=== PATIENT | male | born 1945 | race Caucasian/White ===

== ENCOUNTER → 2016-09-11 | Outpatient (RCR) | payer MEDICARE, OTHER ==
[2016-06-13 12:47] LABS: BASOPHILS % (AUTO) 1 % (0-10); EOSINOPHILS # (AUTO) 0.1 10^3/uL (0.0-0.3); EOSINOPHILS % (AUTO) 2 % (0-10); LYMPHOCYTES # (AUTO) 0.7 X 10^3 (1.0-4.0); LYMPHOCYTES % (AUTO) 23 % (12-44); MEAN CORPUSCULAR HEMOGLOBIN 31 PG (25-34); MEAN CORPUSCULAR HGB CONC 34 G/DL (32-36); MEAN CORPUSCULAR VOLUME 92 FL (80-99); MEAN PLATELET VOLUME 10.4 FL (7.4-10.4); MONOCYTES # (AUTO) 0.2 X 10^3 (0.0-1.0); MONOCYTES % (AUTO) 6 % (0-12); NEUTROPHILS # (AUTO) 2.3 X 10^3 (1.8-7.8); NEUTROPHILS % (AUTO) 69 % (42-75); PLATELET COUNT 187 10^3/uL (130-400); RED BLOOD COUNT 4.07 10^6/uL (4.35-5.85); RED CELL DISTRIBUTION WIDTH 12.8 % (10.0-14.5); WHITE BLOOD COUNT 3.3 10^3/uL (4.3-11.0)
[2016-06-13 13:08] LABS: ANION GAP 12 MMOL/L (5-14); BLOOD UREA NITROGEN 9 MG/DL (7-18); BUN/CREATININE RATIO 9; CALCIUM 9.1 MG/DL (8.5-10.1); CARBON DIOXIDE 21 MMOL/L (21-32); CHLORIDE 106 MMOL/L (98-107); CREATININE SERUM 0.97 MG/DL (0.60-1.30); GFR ESTIMATED > 60; GLUCOSE 107 MG/DL (70-105); POTASSIUM 3.8 MMOL/L (3.6-5.0); SODIUM 139 MMOL/L (135-145)
[2016-06-19 13:31] LABS: BASOPHILS % (AUTO) 1 % (0-10); EOSINOPHILS # (AUTO) 0.1 10^3/uL (0.0-0.3); EOSINOPHILS % (AUTO) 2 % (0-10); LYMPHOCYTES # (AUTO) 0.9 X 10^3 (1.0-4.0); LYMPHOCYTES % (AUTO) 20 % (12-44); MEAN CORPUSCULAR HEMOGLOBIN 31 PG (25-34); MEAN CORPUSCULAR HGB CONC 33 G/DL (32-36); MEAN CORPUSCULAR VOLUME 92 FL (80-99); MEAN PLATELET VOLUME 10.2 FL (7.4-10.4); MONOCYTES # (AUTO) 0.4 X 10^3 (0.0-1.0); MONOCYTES % (AUTO) 9 % (0-12); NEUTROPHILS % (AUTO) 68 % (42-75); PLATELET COUNT 181 10^3/uL (130-400); RED BLOOD COUNT 4.09 10^6/uL (4.35-5.85); RED CELL DISTRIBUTION WIDTH 13.4 % (10.0-14.5); WHITE BLOOD COUNT 4.3 10^3/uL (4.3-11.0)
[2016-06-19 13:57] LABS: ANION GAP 8 MMOL/L (5-14); BLOOD UREA NITROGEN 10 MG/DL (7-18); BUN/CREATININE RATIO 9; CALCIUM 8.9 MG/DL (8.5-10.1); CARBON DIOXIDE 26 MMOL/L (21-32); CHLORIDE 106 MMOL/L (98-107); CREATININE SERUM 1.07 MG/DL (0.60-1.30); GFR ESTIMATED > 60; GLUCOSE 113 MG/DL (70-105); POTASSIUM 3.7 MMOL/L (3.6-5.0); SODIUM 140 MMOL/L (135-145)
[2016-06-26 12:15] LABS: BASOPHILS % (AUTO) 1 % (0-10); EOSINOPHILS # (AUTO) 0.1 10^3/uL (0.0-0.3); EOSINOPHILS % (AUTO) 2 % (0-10); LYMPHOCYTES # (AUTO) 1.2 X 10^3 (1.0-4.0); LYMPHOCYTES % (AUTO) 31 % (12-44); MEAN CORPUSCULAR HEMOGLOBIN 30 PG (25-34); MEAN CORPUSCULAR HGB CONC 33 G/DL (32-36); MEAN CORPUSCULAR VOLUME 92 FL (80-99); MEAN PLATELET VOLUME 10.6 FL (7.4-10.4); MONOCYTES # (AUTO) 0.4 X 10^3 (0.0-1.0); MONOCYTES % (AUTO) 10 % (0-12); NEUTROPHILS # (AUTO) 2.2 X 10^3 (1.8-7.8); NEUTROPHILS % (AUTO) 57 % (42-75); PLATELET COUNT 180 10^3/uL (130-400); RED BLOOD COUNT 4.31 10^6/uL (4.35-5.85); RED CELL DISTRIBUTION WIDTH 13.2 % (10.0-14.5); WHITE BLOOD COUNT 3.8 10^3/uL (4.3-11.0)
[2016-06-26 12:28] LABS: CALCIUM 9.4 MG/DL (8.5-10.1); CREATININE SERUM 1.21 MG/DL (0.60-1.30)
[2016-07-03 13:33] LABS: BASOPHILS % (AUTO) 1 % (0-10); EOSINOPHILS # (AUTO) 0.1 10^3/uL (0.0-0.3); EOSINOPHILS % (AUTO) 2 % (0-10); LYMPHOCYTES # (AUTO) 1.1 X 10^3 (1.0-4.0); LYMPHOCYTES % (AUTO) 28 % (12-44); MEAN CORPUSCULAR HEMOGLOBIN 31 PG (25-34); MEAN CORPUSCULAR HGB CONC 34 G/DL (32-36); MEAN CORPUSCULAR VOLUME 91 FL (80-99); MEAN PLATELET VOLUME 10.4 FL (7.4-10.4); MONOCYTES # (AUTO) 0.3 X 10^3 (0.0-1.0); MONOCYTES % (AUTO) 8 % (0-12); NEUTROPHILS # (AUTO) 2.4 X 10^3 (1.8-7.8); NEUTROPHILS % (AUTO) 61 % (42-75); PLATELET COUNT 166 10^3/uL (130-400); RED BLOOD COUNT 4.18 10^6/uL (4.35-5.85); RED CELL DISTRIBUTION WIDTH 13.6 % (10.0-14.5); WHITE BLOOD COUNT 3.9 10^3/uL (4.3-11.0)
[2016-07-03 14:00] LABS: ALBUMIN 3.6 G/DL (3.2-4.5); BILIRUBIN,TOTAL 0.3 MG/DL (0.1-1.0); CALCIUM 8.6 MG/DL (8.5-10.1); CREATININE SERUM 1.22 MG/DL (0.60-1.30); MAGNESIUM 1.8 MG/DL (1.8-2.4); POTASSIUM 3.9 MMOL/L (3.6-5.0); TOTAL PROTEIN 5.9 G/DL (6.4-8.2)
[2016-07-11 10:39] LABS: RED BLOOD COUNT 4.45 10^6/uL (4.35-5.85); RED CELL DISTRIBUTION WIDTH 13.3 % (10.0-14.5); WHITE BLOOD COUNT 4.3 10^3/uL (4.3-11.0)
[2016-07-11 10:51] LABS: ALBUMIN 4.1 G/DL (3.2-4.5); BILIRUBIN,TOTAL 0.4 MG/DL (0.1-1.0); CALCIUM 9.3 MG/DL (8.5-10.1); CREATININE SERUM 1.36 MG/DL (0.60-1.30); POTASSIUM 4.2 MMOL/L (3.6-5.0); TOTAL PROTEIN 6.5 G/DL (6.4-8.2)
[2016-07-17 13:25] LABS: BASOPHILS % (AUTO) 1 % (0-10); EOSINOPHILS # (AUTO) 0.1 10^3/uL (0.0-0.3); EOSINOPHILS % (AUTO) 2 % (0-10); LYMPHOCYTES % (AUTO) 27 % (12-44); MEAN CORPUSCULAR HEMOGLOBIN 31 PG (25-34); MEAN CORPUSCULAR HGB CONC 34 G/DL (32-36); MEAN CORPUSCULAR VOLUME 90 FL (80-99); MEAN PLATELET VOLUME 9.8 FL (7.4-10.4); MONOCYTES # (AUTO) 0.4 X 10^3 (0.0-1.0); MONOCYTES % (AUTO) 10 % (0-12); NEUTROPHILS # (AUTO) 2.3 X 10^3 (1.8-7.8); NEUTROPHILS % (AUTO) 61 % (42-75); PLATELET COUNT 181 10^3/uL (130-400); RED BLOOD COUNT 4.34 10^6/uL (4.35-5.85); RED CELL DISTRIBUTION WIDTH 13.9 % (10.0-14.5); WHITE BLOOD COUNT 3.8 10^3/uL (4.3-11.0)
[2016-07-17 13:47] LABS: CALCIUM 9.3 MG/DL (8.5-10.1); CREATININE SERUM 1.31 MG/DL (0.60-1.30); POTASSIUM 3.5 MMOL/L (3.6-5.0)
[2016-07-24 13:39] LABS: BASOPHILS % (AUTO) 1 % (0-10); EOSINOPHILS # (AUTO) 0.1 10^3/uL (0.0-0.3); EOSINOPHILS % (AUTO) 2 % (0-10); LYMPHOCYTES # (AUTO) 1.1 X 10^3 (1.0-4.0); LYMPHOCYTES % (AUTO) 20 % (12-44); MEAN CORPUSCULAR HEMOGLOBIN 31 PG (25-34); MEAN CORPUSCULAR HGB CONC 34 G/DL (32-36); MEAN CORPUSCULAR VOLUME 90 FL (80-99); MEAN PLATELET VOLUME 9.6 FL (7.4-10.4); MONOCYTES # (AUTO) 0.4 X 10^3 (0.0-1.0); MONOCYTES % (AUTO) 8 % (0-12); NEUTROPHILS # (AUTO) 3.7 X 10^3 (1.8-7.8); NEUTROPHILS % (AUTO) 70 % (42-75); PLATELET COUNT 201 10^3/uL (130-400); RED CELL DISTRIBUTION WIDTH 13.9 % (10.0-14.5); WHITE BLOOD COUNT 5.3 10^3/uL (4.3-11.0)
[2016-07-24 14:20] LABS: CALCIUM 9.1 MG/DL (8.5-10.1); CREATININE SERUM 1.26 MG/DL (0.60-1.30); POTASSIUM 4.1 MMOL/L (3.6-5.0)
[2016-07-30 11:11] LABS: BASOPHILS % (AUTO) 1 % (0-10); EOSINOPHILS # (AUTO) 0.1 10^3/uL (0.0-0.3); EOSINOPHILS % (AUTO) 2 % (0-10); LYMPHOCYTES # (AUTO) 1.4 X 10^3 (1.0-4.0); LYMPHOCYTES % (AUTO) 25 % (12-44); MEAN CORPUSCULAR HEMOGLOBIN 31 PG (25-34); MEAN CORPUSCULAR HGB CONC 34 G/DL (32-36); MEAN CORPUSCULAR VOLUME 90 FL (80-99); MEAN PLATELET VOLUME 9.7 FL (7.4-10.4); MONOCYTES # (AUTO) 0.5 X 10^3 (0.0-1.0); MONOCYTES % (AUTO) 8 % (0-12); NEUTROPHILS # (AUTO) 3.8 X 10^3 (1.8-7.8); NEUTROPHILS % (AUTO) 65 % (42-75); PLATELET COUNT 210 10^3/uL (130-400); RED BLOOD COUNT 4.53 10^6/uL (4.35-5.85); RED CELL DISTRIBUTION WIDTH 13.9 % (10.0-14.5); WHITE BLOOD COUNT 5.8 10^3/uL (4.3-11.0)
[2016-07-30 11:38] LABS: ALBUMIN 3.9 G/DL (3.2-4.5); BILIRUBIN,TOTAL 0.3 MG/DL (0.1-1.0); CALCIUM 9.4 MG/DL (8.5-10.1); CREATININE SERUM 1.24 MG/DL (0.60-1.30); MAGNESIUM 1.9 MG/DL (1.8-2.4); POTASSIUM 4.2 MMOL/L (3.6-5.0); TOTAL PROTEIN 6.3 G/DL (6.4-8.2)
[2016-07-30 12:02] LABS: THYROID STIMULATING HORMONE 1.98 UIU/ML (0.35-4.94)
[2016-08-06 09:21] LABS: BASOPHILS % (AUTO) 1 % (0-10); EOSINOPHILS # (AUTO) 0.1 10^3/uL (0.0-0.3); EOSINOPHILS % (AUTO) 2 % (0-10); LYMPHOCYTES # (AUTO) 1.3 X 10^3 (1.0-4.0); LYMPHOCYTES % (AUTO) 33 % (12-44); MEAN CORPUSCULAR HEMOGLOBIN 31 PG (25-34); MEAN CORPUSCULAR HGB CONC 34 G/DL (32-36); MEAN CORPUSCULAR VOLUME 90 FL (80-99); MEAN PLATELET VOLUME 10.4 FL (7.4-10.4); MONOCYTES # (AUTO) 0.4 X 10^3 (0.0-1.0); MONOCYTES % (AUTO) 10 % (0-12); NEUTROPHILS # (AUTO) 2.2 X 10^3 (1.8-7.8); NEUTROPHILS % (AUTO) 54 % (42-75); PLATELET COUNT 189 10^3/uL (130-400); RED BLOOD COUNT 4.35 10^6/uL (4.35-5.85); RED CELL DISTRIBUTION WIDTH 13.7 % (10.0-14.5)
[2016-08-06 09:44] LABS: ANION GAP 9 MMOL/L (5-14); BLOOD UREA NITROGEN 13 MG/DL (7-18); BUN/CREATININE RATIO 11; CALCIUM 9.1 MG/DL (8.5-10.1); CARBON DIOXIDE 24 MMOL/L (21-32); CHLORIDE 105 MMOL/L (98-107); CREATININE SERUM 1.15 MG/DL (0.60-1.30); GFR ESTIMATED > 60; GLUCOSE 96 MG/DL (70-105); POTASSIUM 3.7 MMOL/L (3.6-5.0); SODIUM 138 MMOL/L (135-145)
[2016-08-14 14:49] LABS: BASOPHILS % (AUTO) 1 % (0-10); EOSINOPHILS # (AUTO) 0.1 10^3/uL (0.0-0.3); EOSINOPHILS % (AUTO) 3 % (0-10); LYMPHOCYTES # (AUTO) 1.2 X 10^3 (1.0-4.0); LYMPHOCYTES % (AUTO) 28 % (12-44); MEAN CORPUSCULAR HEMOGLOBIN 31 PG (25-34); MEAN CORPUSCULAR HGB CONC 34 G/DL (32-36); MEAN CORPUSCULAR VOLUME 91 FL (80-99); MEAN PLATELET VOLUME 10.1 FL (7.4-10.4); MONOCYTES # (AUTO) 0.5 X 10^3 (0.0-1.0); MONOCYTES % (AUTO) 11 % (0-12); NEUTROPHILS # (AUTO) 2.4 X 10^3 (1.8-7.8); NEUTROPHILS % (AUTO) 57 % (42-75); PLATELET COUNT 201 10^3/uL (130-400); RED CELL DISTRIBUTION WIDTH 13.7 % (10.0-14.5); WHITE BLOOD COUNT 4.2 10^3/uL (4.3-11.0)
[2016-08-14 15:14] LABS: CALCIUM 9.2 MG/DL (8.5-10.1); CREATININE SERUM 1.21 MG/DL (0.60-1.30); POTASSIUM 4.2 MMOL/L (3.6-5.0)
[2016-08-21 10:08] LABS: BASOPHILS % (AUTO) 1 % (0-10); EOSINOPHILS # (AUTO) 0.2 10^3/uL (0.0-0.3); EOSINOPHILS % (AUTO) 3 % (0-10); LYMPHOCYTES # (AUTO) 1.2 X 10^3 (1.0-4.0); LYMPHOCYTES % (AUTO) 21 % (12-44); MEAN CORPUSCULAR HEMOGLOBIN 31 PG (25-34); MEAN CORPUSCULAR HGB CONC 35 G/DL (32-36); MEAN CORPUSCULAR VOLUME 91 FL (80-99); MEAN PLATELET VOLUME 10.1 FL (7.4-10.4); MONOCYTES # (AUTO) 0.5 X 10^3 (0.0-1.0); MONOCYTES % (AUTO) 9 % (0-12); NEUTROPHILS # (AUTO) 3.9 X 10^3 (1.8-7.8); NEUTROPHILS % (AUTO) 67 % (42-75); PLATELET COUNT 185 10^3/uL (130-400); RED BLOOD COUNT 4.14 10^6/uL (4.35-5.85); RED CELL DISTRIBUTION WIDTH 13.5 % (10.0-14.5); WHITE BLOOD COUNT 5.9 10^3/uL (4.3-11.0)
[2016-08-21 10:32] LABS: ANION GAP 7 MMOL/L (5-14); BLOOD UREA NITROGEN 15 MG/DL (7-18); BUN/CREATININE RATIO 13; CALCIUM 8.9 MG/DL (8.5-10.1); CARBON DIOXIDE 25 MMOL/L (21-32); CHLORIDE 106 MMOL/L (98-107); CREATININE SERUM 1.18 MG/DL (0.60-1.30); GFR ESTIMATED > 60; GLUCOSE 103 MG/DL (70-105); POTASSIUM 3.9 MMOL/L (3.6-5.0); SODIUM 138 MMOL/L (135-145)
[2016-08-28 13:05] LABS: BASOPHILS % (AUTO) 1 % (0-10); EOSINOPHILS # (AUTO) 0.2 10^3/uL (0.0-0.3); EOSINOPHILS % (AUTO) 5 % (0-10); LYMPHOCYTES # (AUTO) 1.3 X 10^3 (1.0-4.0); LYMPHOCYTES % (AUTO) 26 % (12-44); MEAN CORPUSCULAR HEMOGLOBIN 31 PG (25-34); MEAN CORPUSCULAR HGB CONC 34 G/DL (32-36); MEAN CORPUSCULAR VOLUME 92 FL (80-99); MEAN PLATELET VOLUME 10.1 FL (7.4-10.4); MONOCYTES # (AUTO) 0.5 X 10^3 (0.0-1.0); MONOCYTES % (AUTO) 9 % (0-12); NEUTROPHILS # (AUTO) 2.9 X 10^3 (1.8-7.8); NEUTROPHILS % (AUTO) 60 % (42-75); PLATELET COUNT 192 10^3/uL (130-400); RED BLOOD COUNT 4.51 10^6/uL (4.35-5.85); RED CELL DISTRIBUTION WIDTH 13.1 % (10.0-14.5); WHITE BLOOD COUNT 4.9 10^3/uL (4.3-11.0)
[2016-08-28 13:33] LABS: CALCIUM 9.2 MG/DL (8.5-10.1); CREATININE SERUM 1.32 MG/DL (0.60-1.30); POTASSIUM 3.9 MMOL/L (3.6-5.0)
[2016-09-03 10:42] LABS: BASOPHILS % (AUTO) 0 % (0-10); EOSINOPHILS # (AUTO) 0.2 10^3/uL (0.0-0.3); EOSINOPHILS % (AUTO) 4 % (0-10); LYMPHOCYTES # (AUTO) 1.1 X 10^3 (1.0-4.0); LYMPHOCYTES % (AUTO) 24 % (12-44); MEAN CORPUSCULAR HEMOGLOBIN 31 PG (25-34); MEAN CORPUSCULAR HGB CONC 34 G/DL (32-36); MEAN CORPUSCULAR VOLUME 92 FL (80-99); MEAN PLATELET VOLUME 9.9 FL (7.4-10.4); MONOCYTES # (AUTO) 0.3 X 10^3 (0.0-1.0); MONOCYTES % (AUTO) 7 % (0-12); NEUTROPHILS % (AUTO) 65 % (42-75); PLATELET COUNT 208 10^3/uL (130-400); RED CELL DISTRIBUTION WIDTH 13.3 % (10.0-14.5); WHITE BLOOD COUNT 4.6 10^3/uL (4.3-11.0)
[2016-09-03 11:11] LABS: ALANINE AMINOTRANSFERASE 12 U/L (0-55); ALBUMIN 3.7 G/DL (3.2-4.5); ANION GAP 9 MMOL/L (5-14); ASPARTATE AMINO TRANSFERASE 15 U/L (5-34); BILIRUBIN,TOTAL 0.6 MG/DL (0.1-1.0); BLOOD UREA NITROGEN 8 MG/DL (7-18); BUN/CREATININE RATIO 7; CALCIUM 9.1 MG/DL (8.5-10.1); CARBON DIOXIDE 24 MMOL/L (21-32); CHLORIDE 105 MMOL/L (98-107); CREATININE SERUM 1.19 MG/DL (0.60-1.30); GFR ESTIMATED > 60; GLUCOSE 118 MG/DL (70-105); MAGNESIUM 1.5 MG/DL (1.8-2.4); POTASSIUM 3.4 MMOL/L (3.6-5.0); SODIUM 138 MMOL/L (135-145)
[~2016-09-11] VITALS: Ht 177.8 cm; Wt 87.5 kg
[~2016-09-11] MED LIST: ACETAMINOPHEN 500 MG TAB (TYLENOL) CANCER CTR PO PRN; ALBU0.8322 IH; ASCO500T6 PO; ASPI-9 PO; CEFD300C3 PO; CHOL20002 PO; CLON0.5T3 PO; CYAN10006 PO; DULO60CA6 PO; FLDR.1T PO; FLUC100T6 PO; FOLI1TAB24 PO; FURO20TA4 PO; GUAI400T71 PO; HYDR-3454 PO; HYDR1TAB8 PO; IBUP-30 PO; IPRA3AMP INH; LEVO500T2 PO; LEVO500T69 PO; LEVO750T39 PO; MAGN250T PO; MELO15TA39 PO; METO10TA3 PO; MORP-34 PO; NCT14P TD; NIVOLUMAB 200 MG, NIVOLUMAB 40 MG in NS (IVPB) CANCER CENTER 50 ML IV SCH; NIVOLUMAB IV SCH; NS IV 500 ML (CANCER CENTER) IV SCH; NS IV SCH; OMEP40CA36 PO; ONDA8TAB12 PO; OXYB5TAB9 PO; OXYC-190 PO; OXYC-464 PO; OXYC10TA7 PO; OXYC20TA4 PO; OXYC20TA54 PO; POTA20TA8 PO; PYRI200T5 PO; VITA400C60 PO; VITA80006 PO; ZOLM5TAB8 PO; ZOLP10TA5 PO; diphenhydrAMINE 25 MG TAB (BENADRYL) CANCER CENTER PO SCH
[2016-09-11 15:42] LABS: BASOPHILS % (AUTO) 1 % (0-10); EOSINOPHILS # (AUTO) 0.3 10^3/uL (0.0-0.3); EOSINOPHILS % (AUTO) 6 % (0-10); LYMPHOCYTES # (AUTO) 1.3 X 10^3 (1.0-4.0); LYMPHOCYTES % (AUTO) 28 % (12-44); MEAN CORPUSCULAR HGB CONC 34 G/DL (32-36); MEAN CORPUSCULAR VOLUME 93 FL (80-99); MEAN PLATELET VOLUME 10.2 FL (7.4-10.4); MONOCYTES # (AUTO) 0.4 X 10^3 (0.0-1.0); MONOCYTES % (AUTO) 9 % (0-12); NEUTROPHILS # (AUTO) 2.6 X 10^3 (1.8-7.8); NEUTROPHILS % (AUTO) 57 % (42-75); PLATELET COUNT 204 10^3/uL (130-400); RED BLOOD COUNT 4.26 10^6/uL (4.35-5.85); RED CELL DISTRIBUTION WIDTH 13.2 % (10.0-14.5); WHITE BLOOD COUNT 4.5 10^3/uL (4.3-11.0)
[2016-09-11 15:43] LABS: MEAN CORPUSCULAR HEMOGLOBIN 31 PG (25-34)
[2016-09-11 16:13] LABS: CALCIUM 9.2 MG/DL (8.5-10.1); CREATININE SERUM 1.2 MG/DL (0.60-1.30)
== END | disposition home or self-care (01) ==
LOC: ONC 06-13 12:27
PROVIDERS: ATTEND Internal Medicine Hematology & Oncology
DX: Z51.11 Encounter for antineoplastic chemotherapy (principal); C34.32 Malignant neoplasm of lower lobe, left bronchus or lung; J91.0 Malignant pleural effusion; Z85.46 Personal history of malignant neoplasm of prostate; K59.00 Constipation, unspecified; F17.210 Nicotine dependence, cigarettes, uncomplicated; M48.06 Spinal stenosis, lumbar region; M19.90 Unspecified osteoarthritis, unspecified site; E83.42 Hypomagnesemia; Z79.899 Other long term (current) drug therapy
CPT/HCPCS: 36415; 36591; 80048; 80053; 83735; 84153; 84439; 84443; 85025; 85027; 96413; 99213

== ENCOUNTER → 2016-10-23 | Outpatient (CLI) | payer MEDICARE ==
[~2016-10-23] MED LIST changes: -ACETAMINOPHEN 500 MG TAB (TYLENOL) CANCER CTR PO PRN; +BARIUM SUSPENSION 2.1% (VANILLA SILQ) 450 ML PO ONE; +CATHETER FLUSH 10 ML SYR IV PRN; +IOHEXOL 350 MG/ML 100 ML (OMNIPAQUE 350) VIAL IV ONE; -NIVOLUMAB 200 MG, NIVOLUMAB 40 MG in NS (IVPB) CANCER CENTER 50 ML IV SCH; -NIVOLUMAB IV SCH; +NS 100 ML (IVPB) BAG IV ONE; -NS IV 500 ML (CANCER CENTER) IV SCH; -NS IV SCH; -diphenhydrAMINE 25 MG TAB (BENADRYL) CANCER CENTER PO SCH
--- OUTSIDE RECORDS SUMMARY | 2016-10-23 08:58 | XMS REPORT | Continuity of Care Document ---
Demographics Preferred Language Unknown Marital Status Unknown Christianity Affiliation Unknown Race Unknown Ethnic Group Unknown Author Author [facility] Address Unknown Phone Unavailable Allergies Active Description Code Type Severity Reaction Onset Reported/Identified Relationship to Patient Clinical Status Yes ENVIRONMENTAL ENVIRONMENTAL Mild N/A 03/02/2012 Yes No Known Drug Allergies [id number] Drug Allergy Unknown N/ A 04/09/2016 Medications Problems Date Dx Coded Attending Type Code Diagnosis Diagnosed By 08/06/1056 NORBERT GIBBS, RABIA Cai Ot 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 OF LOWER LOBE, LEFT B 08/06/1056 NORBERT GIBBS, RABIA Cai Ot F17.210 NICOTINE DEPENDENCE, CIGARETTES, UNCOMPL 08/06/1056 NORBERT GIBBS, RABIA Cai Ot G89.4 CHRONIC PAIN SYNDROME 08/06/1056 NORBERT GIBBS, RABIA Cai Ot 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 08/06/1056 NORBERT GIBBS, RABIA Cai Ot K59.00 CONSTIPATION, UNSPECIFIED 08/06/1056 NORBERT GIBBS, RABIA Cai Ot M19.90 UNSPECIFIED OSTEOARTHRITIS, UNSPECIFIED 08/06/1056 NORBERT GIBBS, RABIA Cai Ot M48.06 SPINAL STENOSIS, LUMBAR REGION 08/06/1056 NORBERT GIBBS, RABIA Cai Ot R42 DIZZINESS AND GIDDINESS 08/06/1056 NORBERT GIBBS, RABIA Cai Ot Z51.11 ENCOUNTER FOR ANTINEOPLASTIC CHEMOTHERAP 08/06/1056 NORBERT GIBBS, RABIA Cai Ot 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 08/06/1056 NORBERT GIBBS, RABIA Cai Ot Z85.46 PERSONAL HISTORY OF MALIGNANT NEOPLASM O 11/27/2011 296.32 MO DEPRESSIVE RECURRENT MODERATE 11/27/2011 296.32 MO DEPRESSIVE RECURRENT MODERATE 03/04/2012 Ot 275.2 DIS MAGNESIUM METABOLISM 03/04/2012 Ot 300.00 ANXIETY STATE NOS 03/04/2012 Ot 305.1 TOBACCO USE DISORDER 03/04/2012 Ot 311 DEPRESSIVE DISORDER NEC 03/04/2012 Ot 486 PNEUMONIA, ORGANISM NOS 03/04/2012 Ot 496 CHR AIRWAY OBSTRUCT NEC 03/04/2012 Ot 722.52 LUMB/LUMBOSAC DISC DEGEN 03/04/2012 Ot E000.8 OTHER EXTERNAL CAUSE STATUS 03/04/2012 Ot E849.0 ACCIDENT IN HOME 03/04/2012 Ot E888.9 FALL NOS 01/05/2015 LINDSEY COE MD Ot 338.4 CHRONIC PAIN SYNDROME 01/05/2015 LINDSEY COE MD Ot 721.3 LUMBOSACRAL SPONDYLOSIS 01/05/2015 LINDSEY COE MD Ot 722.52 LUMB/LUMBOSAC DISC DEGEN 01/05/2015 LINDSEY COE MD Ot V58.69 OTH MED,LT,CURRENT USE 01/09/2015 LINDSEY COE MD Ot 722.83 01/09/2015 LINDSEY COE MD Ot 724.02 02/02/2015 LINDSEY COE MD Ot 722.52 LUMB/LUMBOSAC DISC DEGEN 05/22/2015 GAYLE GIBBS, ALLEN Rojas Ot 959.01 05/22/2015 ALLEN ARAUJO MD Ot E000.8 05/22/2015 ALLEN ARAUJO MD Ot E888.9 06/06/2015 ALLEN ARAUJO MD Ot 959.01 06/06/2015 ALLEN ARAUJO MD Ot E000.8 06/06/2015 ALLEN ARAUJO MD Ot E888.9 06/13/2015 ALLEN ARAUJO MD Ot 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 OF LOWER LOBE, LEFT B 06/13/2015 GAYLE GIBBS, ALLEN Rojas Ot F17.200 NICOTINE DEPENDENCE, UNSPECIFIED, UNCOMP 06/13/2015 ALLEN ARAUJO MD Ot F41.9 ANXIETY DISORDER, UNSPECIFIED 06/13/2015 ALLEN ARAUJO MD Ot G43.909 MIGRAINE, UNSP, NOT INTRACTABLE, WITHOUT 06/13/2015 ALLEN ARAUJO MD Ot G89.4 CHRONIC PAIN SYNDROME 06/13/2015 ALLEN ARAUJO MD Ot 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 06/13/2015 ALLEN ARAUJO MD Ot K59.00 CONSTIPATION, UNSPECIFIED 06/13/2015 ALLEN ARAUJO MD Ot M19.90 UNSPECIFIED OSTEOARTHRITIS, UNSPECIFIED 06/13/2015 ALLEN ARAUJO MD Ot M54.2 CERVICALGIA 06/13/2015 ALLEN ARAUJO MD Ot R91.8 06/15/2015 Ot 185 06/15/2015 Ot 305.1 06/15/2015 Ot 716.99 06/15/2015 Ot V58.69 06/15/2015 Ot 185 06/15/2015 Ot 724.02 06/15/2015 Ot V45.4 06/15/2015 Ot 185 06/15/2015 Ot 724.02 06/15/2015 Ot V45.4 06/15/2015 Ot 331.9 06/15/2015 Ot 781.3 06/15/2015 Ot 724.5 06/15/2015 Ot 780.2 06/15/2015 Ot 397.0 06/15/2015 Ot 424.0 06/15/2015 Ot 724.5 06/15/2015 Ot 780.2 06/15/2015 GAYLE GIBBS, ALLEN Rojas Ot 723.1 06/15/2015 ALLEN ARAUJO MD Ot V45.89 06/15/2015 LUCAS RAHMAN [employer] Ot 305.1 06/15/2015 LUCAS RAHMAN [employer] Ot 564.00 06/15/2015 LUCAS RAHMAN [employer]AL Ot 786.2 06/15/2015 LUCAS RAHMAN [employer]AL Ot 787.02 06/15/2015 SARAVANAN GIBBS, LINDSEY Castrejon Ot 722.83 06/15/2015 LINDSEY COE MD Ot 724.02 06/15/2015 GAYLE GIBBS, ALLEN Rojas Ot 959.01 06/15/2015 GAYLE GIBBS, ALLEN Rojas Ot E000.8 06/15/2015 GAYLE GIBBS, ALLEN Rojas Ot E888.9 06/27/2015 NORBERT GIBBS, RABIA Cai Ot R91.8 OTHER NONSPECIFIC ABNORMAL FINDING OF TAMAR 07/09/2015 BRAYAN SIERRA MD Ot C34.90 MALIGNANT NEOPLASM OF UNSP PART OF UNSP 07/09/2015 BRAYAN SIERRA MD Ot K57.30 DVRTCLOS OF LG INT W/O PERFORATION OR AB 07/09/2015 BRAYAN SIERRA MD Ot K63.5 POLYP OF COLON 07/10/2015 EDILBERTO MOULTON CORE MAKER Ot J90 07/10/2015 EDILBERTO MOULTON APRN Ot K59.00 07/11/2015 BRAYAN SIERRA MD Ot Z01.818 07/11/2015 BRAYAN SIERRA MD Ot C34.90 MALIGNANT NEOPLASM OF UNSP PART OF UNSP 07/11/2015 MARIELA GIBBS, BRAYAN Heredia Ot Z11.2 ENCOUNTER FOR SCREENING FOR OTHER BACTER 07/23/2015 Ot 185 07/23/2015 Ot 305.1 07/23/2015 Ot 716.99 07/23/2015 Ot V58.69 07/23/2015 Ot 185 07/23/2015 Ot 724.02 07/23/2015 Ot V45.4 07/23/2015 Ot 185 07/23/2015 Ot 724.02 07/23/2015 Ot V45.4 07/23/2015 Ot 331.9 07/23/2015 Ot 781.3 07/23/2015 Ot 724.5 07/23/2015 Ot 780.2 07/23/2015 Ot 397.0 07/23/2015 Ot 424.0 07/23/2015 Ot 724.5 07/23/2015 Ot 780.2 07/23/2015 GAYLE GIBBS, ALLEN Rojas Ot 723.1 07/23/2015 GAYLE GIBBS, ALLEN Rojas Ot V45.89 07/23/2015 LUCAS RAHMAN [facility] Ot 305.1 07/23/2015 LUCAS RAHMAN [employer] Ot 564.00 07/23/2015 LUCAS RAHMAN [employer] Ot 786.2 07/23/2015 LUCAS RAHMAN [employer] Ot 787.02 07/23/2015 SARAVANAN GIBBS, LINDSEY Castrejon Ot 722.83 07/23/2015 SARAVANAN GIBBS, LINDSEY Castrejon Ot 724.02 07/23/2015 GAYLE GIBBS, ALLEN Rojas Ot 959.01 07/23/2015 GAYLE GIBBS, ALLEN Rojas Ot E000.8 07/23/2015 ALLEN ARAUJO MD Ot E888.9 07/23/2015 NORBERT GIBBS, RABIA Cai Ot F17.210 07/23/2015 NORBERT GIBBS, RABIA Cai Ot J91.0 07/23/2015 NORBERT GIBBS, RABIA Cai Ot K59.00 07/23/2015 NORBERT GIBBS, RABIA Cai Ot M19.90 07/23/2015 NORBERT GIBBS, RABIA Cai Ot M48.06 07/23/2015 NORBERT GIBBS, RABIA Cai Ot R91.8 07/23/2015 NORBERT GIBBS, RABIA Cai Ot Z79.899 07/23/2015 NORBERT IGBBS, RABIA Cai Ot Z85.46 07/23/2015 EDILBERTO MOULTON CORE MAKER Ot J90 07/23/2015 EDILBERTO MOULTON CORE MAKER Ot K59.00 07/23/2015 MARIELA GIBBS, BRAYAN Heredia Ot K59.00 07/23/2015 MARIELA GIBBS, BRAYAN Heredia Ot Z01.818 07/23/2015 MARIELA GIBBS, BRAYAN Heredia Ot Z01.818 07/23/2015 Ot 724.5 07/23/2015 Ot 780.2 07/23/2015 Ot 397.0 07/23/2015 Ot 424.0 07/23/2015 Ot 724.5 07/23/2015 Ot 780.2 07/23/2015 Ot 185 07/23/2015 Ot 305.1 07/23/2015 Ot 716.99 07/23/2015 Ot V58.69 07/23/2015 Ot 185 07/23/2015 Ot 724.02 07/23/2015 Ot V45.4 07/23/2015 Ot 185 07/23/2015 Ot 724.02 07/23/2015 Ot V45.4 07/23/2015 Ot 331.9 07/23/2015 Ot 781.3 07/23/2015 Ot 724.5 07/23/2015 Ot 780.2 07/23/2015 Ot 397.0 07/23/2015 Ot 424.0 07/23/2015 Ot 724.5 07/23/2015 Ot 780.2 07/23/2015 GAYLE GIBBS, ALLEN Rojas Ot 723.1 07/23/2015 GAYLE GIBBS, ALLEN Rojas Ot V45.89 07/23/2015 LUCAS RAHMAN [employer] Ot 305.1 07/23/2015 LUCAS RAHMAN [employer]AL Ot 564.00 07/23/2015 LUCAS RAHMAN [employer] Ot 786.2 07/23/2015 LUCAS RAHMAN [employer] Ot 787.02 07/23/2015 SARAVANAN GIBBS, LINDSEY Castrejon Ot 722.83 07/23/2015 LINDSEY COE MD Ot 724.02 07/23/2015 GAYLE GIBBS, ALLEN Rojas Ot 959.01 07/23/2015 GAYLE GIBBS, ALLEN Rojas Ot E000.8 07/23/2015 ALLEN ARAUJO MD Ot E888.9 07/23/2015 NORBERT GIBBS, RABIA K Ot F17.210 07/23/2015 NORBERT GIBBS, RABIA K Ot J91.0 07/23/2015 NORBERT GIBBS, RABIA K Ot K59.00 07/23/2015 NORBERT GIBBS, RABIA K Ot M19.90 07/23/2015 NORBERT GIBBS, RABIA K Ot M48.06 07/23/2015 NORBERT GIBBS, RABIA K Ot R91.8 07/23/2015 NORBERT GIBBS, RABIA K Ot Z79.899 07/23/2015 NORBERT GIBBS, RABIA K Ot Z85.46 07/23/2015 EDILBERTO MOULTON CORE MAKER Ot J90 07/23/2015 EDILBERTO MOULTON CORE MAKER Ot K59.00 07/23/2015 MARIELA GIBBS, BRAYAN M Ot K59.00 07/23/2015 MARIELA GIBBS, BRAYAN M Ot Z01.818 07/23/2015 MARIELA GIBBS, BRAYAN M Ot Z01.818 07/23/2015 NORBERT GIBBS, RABIA K Ot F17.210 07/23/2015 NORBERT GIBBS, RABIA K Ot J91.0 07/23/2015 NORBERT GIBBS, RABIA K Ot K59.00 07/23/2015 NORBERT GIBBS, RABIA Cai Ot M19.90 07/23/2015 NORBERT GIBBS, RABIA Cai Ot M48.06 07/23/2015 NORBERT GIBBS, RABIA K Ot R91.8 07/23/2015 NORBERT GIBBS, RABIA K Ot Z79.899 07/23/2015 NORBERT GIBBS, RABIA K Ot Z85.46 07/23/2015 EDILBERTO MOULTON CORE MAKER Ot J90 07/23/2015 EDILBERTO MOULTON CORE MAKER Ot K59.00 07/23/2015 GAYLE GIBBS, ALLEN A Ot 959.01 07/23/2015 GAYLE GIBBS, ALLEN A Ot E000.8 07/23/2015 GAYLE GIBBS, ALLEN A Ot E888.9 07/23/2015 GAYLE GIBBS, ALLEN A Ot 723.1 07/23/2015 GAYLE GIBBS, ALLEN A Ot V45.89 07/31/2015 GAYLE GIBBS, ALLEN A Ot 723.1 07/31/2015 GAYLE GIBBS, ALLEN A Ot V45.89 07/31/2015 GAYLE GIBBS, ALLEN A Ot 959.01 07/31/2015 GAYLE GIBBS, ALLEN Rojas Ot E000.8 07/31/2015 GAYLE GIBBS, ALLEN Rojas Ot E888.9 07/31/2015 EDILBERTO MOULTON CORE MAKER Ot J90 07/31/2015 EDILBERTO MOULTON CORE MAKER Ot K59.00 08/08/2015 NORBERT GIBBS, RABIA Cai Ot F17.210 08/08/2015 NORBERT GIBBS, RABIA Cai Ot J91.0 08/08/2015 NORBERT GIBBS, RABIA Cai Ot K59.00 08/08/2015 NORBERT GIBBS, RABIA Cai Ot M19.90 08/08/2015 NORBERT GIBBS, RABIA Cai Ot M48.06 08/08/2015 NORBERT GIBBS, RABIA Cai Ot R91.8 08/08/2015 NORBERT GIBBS, RABIA Cai Ot Z79.899 08/08/2015 NORBERT GIBBS, RABIA Cai Ot Z85.46 08/17/2015 NORBERT GIBBS, RABIA Cai Ot F17.210 08/17/2015 NORBERT GIBBS, RABIA Cai Ot J91.0 08/17/2015 NORBERT GIBBS, RABIA Cai Ot K59.00 08/17/2015 NORBERT GIBBS, RABIA Cai Ot M19.90 08/17/2015 NORBERT GIBBS, RABIA Cai Ot M48.06 08/17/2015 NORBERT GIBBS, RABIA Cai Ot R91.8 08/17/2015 NORBERT GIBBS, RABIA Cai Ot Z79.899 08/17/2015 NORBERT GIBBS, RABIA Cai Ot Z85.46 09/13/2015 Ot 185 09/13/2015 Ot 305.1 09/13/2015 Ot 716.99 09/13/2015 Ot V58.69 09/13/2015 Ot 185 09/13/2015 Ot 724.02 09/13/2015 Ot V45.4 09/13/2015 Ot 185 09/13/2015 Ot 724.02 09/13/2015 Ot V45.4 09/13/2015 Ot 331.9 09/13/2015 Ot 781.3 09/13/2015 Ot 724.5 09/13/2015 Ot 780.2 09/13/2015 Ot 397.0 09/13/2015 Ot 424.0 09/13/2015 Ot 724.5 09/13/2015 Ot 780.2 09/13/2015 GAYLE GIBBS, ALLEN Rojas Ot 723.1 09/13/2015 GAYLE GIBBS, ALLEN Rojas Ot V45.89 09/13/2015 LUCAS RAHMAN [employer]RIAL Ot 305.1 09/13/2015 LUCAS RAHMAN LIGHT IND[employer]RIAL Ot 564.00 09/13/2015 LUCAS RAHMAN LIGHT INDUSTRIAL Ot 786.2 09/13/2015 LUCAS RAHMAN LIGHT IND[employer]RIAL Ot 787.02 09/13/2015 SARAVANAN GIBBS, LINDSEY Castrejon Ot 722.83 09/13/2015 SARAVANAN GIBBS, LINDSEY Castrejon Ot 724.02 09/13/2015 GAYLE GIBBS, ALLEN A Ot 959.01 09/13/2015 GAYLE GIBBS, ALLEN A Ot E000.8 09/13/2015 GAYLE GIBBS, ALLEN A Ot E888.9 09/13/2015 NORBERT GIBBS, RABIA Cai Ot F17.210 09/13/2015 NORBERT GIBBS, RABIA Cai Ot J91.0 09/13/2015 NORBERT GIBBS, RABIA Cai Ot K59.00 09/13/2015 NORBERT GIBBS, RABIA Cai Ot M19.90 09/13/2015 NORBERT GIBBS, RABIA Cai Ot M48.06 09/13/2015 NORBERT GIBBS, RABIA Cai Ot R91.8 09/13/2015 NORBERT GIBBS, RABIA Cai Ot Z79.899 09/13/2015 NORBERT GIBBS, RABIA Cai Ot Z85.46 09/13/2015 EDILBERTO MOULTON CORE MAKER Ot J90 09/13/2015 EDILBERTO MOULTON APRN Ot K59.00 09/13/2015 MARIELA GIBBS, BRAYAN Heredia Ot K59.00 09/13/2015 MARIELA GIBBS, BRAYAN Heredia Ot Z01.818 09/13/2015 MARIELA GIBBS, BRAYAN M Ot Z01.818 09/13/2015 CORBIN GIBBS, RADHA Ot F17.210 09/13/2015 CORBIN GIBBS, RADHA Ot Z08 09/13/2015 CORBIN GIBBS, RADHA Ot Z79.899 09/13/2015 CORBIN GIBBS, LAYNE-JUAN Ot Z85.46 09/19/2015 NORBERT GIBBS, RABIA Cai Ot 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 OF LOWER LOBE, LEFT B 09/19/2015 NORBERT GIBBS, RABIA Cai Ot F17.210 NICOTINE DEPENDENCE, CIGARETTES, UNCOMPL 09/19/2015 NORBERT GIBBS, RABIA Cai Ot 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 09/19/2015 NORBERT GIBBS, RABIA Cai Ot K59.00 CONSTIPATION, UNSPECIFIED 09/19/2015 NORBERT GIBBS, RABIA Cai Ot M19.90 UNSPECIFIED OSTEOARTHRITIS, UNSPECIFIED 09/19/2015 NORBERT GIBBS, RABIA Cai Ot M48.06 SPINAL STENOSIS, LUMBAR REGION 09/19/2015 NORBERT GIBBS, RABIA Cai Ot R91.8 OTHER NONSPECIFIC ABNORMAL FINDING OF TAMAR 09/19/2015 NORBERT GIBBS, RABIA Cai Ot Z51.11 ENCOUNTER FOR ANTINEOPLASTIC CHEMOTHERAP 09/19/2015 NORBERT GIBBS, RABIA Cai Ot 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 09/19/2015 NORBERT GIBBS, RABIA Cai Ot Z85.46 PERSONAL HISTORY OF MALIGNANT NEOPLASM O 09/19/2015 NORBERT GIBBS, RABIA Cai Ot F17.210 09/19/2015 NORBERT GIBBS, RABIA Cai Ot J91.0 09/19/2015 NORBERT GIBBS, RABIA Cai Ot K59.00 09/19/2015 NORBERT GIBBS, RABIA Cai Ot M19.90 09/19/2015 NORBERT GIBBS, RABIA Cai Ot M48.06 09/19/2015 NORBERT GIBBS, RABIA Cai Ot R91.8 09/19/2015 NORBERT GIBBS, RABIA Cai Ot Z79.899 09/19/2015 NORBERT GIBBS, RABIA Cai Ot Z85.46 09/27/2015 CORBIN GIBBS, RADHA Ot F17.210 09/27/2015 CORBIN GIBBS, RADHA Ot Z08 09/27/2015 CORBIN GIBBS, RADHA Ot Z79.899 09/27/2015 CORBIN GIBBS, RADHA Ot Z85.46 09/28/2015 NORBERT GIBBS, RABIA Cai Ot F17.210 09/28/2015 NORBERT GIBBS, RABIA Cai Ot J91.0 09/28/2015 NORBERT GIBBS, RABIA Cai Ot K59.00 09/28/2015 NORBERT GIBBS, RABIA Cai Ot M19.90 09/28/2015 NORBERT GIBBS, RABIA Cai Ot M48.06 09/28/2015 NORBERT GIBBS, RABIA Cai Ot R91.8 09/28/2015 NORBERT GIBBS, RABIA Cai Ot Z79.899 09/28/2015 NORBERT GIBBS, RABIA Cai Ot Z85.46 10/08/2015 CORBIN GIBBS, LAYNE-JUAN Ot C34.32 10/31/2015 NORBERT GIBBS, RABIA Cai Ot F17.210 10/31/2015 NORBERT GIBBS, RABIA Cai Ot J91.0 10/31/2015 NORBERT GIBBS, RABIA Cai Ot K59.00 10/31/2015 NORBERT GIBBS, RABIA Cai Ot M19.90 10/31/2015 NORBERT GIBBS, RABIA Cai Ot M48.06 10/31/2015 NORBERT GIBBS, RABIA Cai Ot R91.8 10/31/2015 NORBERT GIBBS, RABIA Cai Ot Z79.899 10/31/2015 NORBERT GIBBS, ARBIA Cai Ot Z85.46 11/02/2015 NORBERT GIBBS, RABIA Cai Ot F17.210 11/02/2015 NORBERT GIBBS, RABIA Cai Ot J91.0 11/02/2015 NORBERT GIBBS, RABIA Cai Ot K59.00 11/02/2015 NORBERT GIBBS, RABIA Cai Ot M19.90 11/02/2015 NORBERT GIBBS, RABIA Cai Ot M48.06 11/02/2015 NORBERT GIBBS, RABIA Cai Ot R91.8 11/02/2015 NORBERT GIBBS, RABIA Cai Ot Z79.899 11/02/2015 RABIA TOUSSAINT MD Ot Z85.46 11/15/2015 NORBERT GIBBS, RABIA Cai Ot C34.32 12/04/2015 NORBERT GIBBS, RABIA Cai Ot C34.32 12/26/2015 NORBERT GIBBS, RABIA Cai Ot 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 OF LOWER LOBE, LEFT B 12/26/2015 NORBERT GIBBS, RABIA Cai Ot E83.42 HYPOMAGNESEMIA 12/26/2015 RABIA TOUSSAINT MD Ot F17.210 NICOTINE DEPENDENCE, CIGARETTES, UNCOMPL 12/26/2015 RABIA TOUSSAINT MD Ot 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 12/26/2015 RABIA TOUSSAINT MD Ot K59.00 CONSTIPATION, UNSPECIFIED 12/26/2015 NORBERT GIBBS, RABIA Cai Ot M19.90 UNSPECIFIED OSTEOARTHRITIS, UNSPECIFIED 12/26/2015 NORBERT GIBBS, RABIA Cai Ot M48.06 SPINAL STENOSIS, LUMBAR REGION 12/26/2015 RABIA TOUSSAINT MD Ot R91.8 OTHER NONSPECIFIC ABNORMAL FINDING OF TAMAR 12/26/2015 RABIA TOUSSAINT MD Ot Z51.11 ENCOUNTER FOR ANTINEOPLASTIC CHEMOTHERAP 12/26/2015 RABIA TOUSSAINT MD Ot Z79.899 OTHER HALF-WAY (CURRENT) DRUG THERAPY 12/26/2015 RABIA TOUSSAINT MD Ot Z85.46 PERSONAL HISTORY OF MALIGNANT NEOPLASM O 12/27/2015 RABIA TOUSSAINT MD Ot F17.210 NICOTINE DEPENDENCE, CIGARETTES, UNCOMPL 12/27/2015 RABIA TOUSSAINT MD Ot 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 12/27/2015 RABIA TOUSSAINT MD Ot K59.00 CONSTIPATION, UNSPECIFIED 12/27/2015 RABIA TOUSSAINT MD Ot M19.90 UNSPECIFIED OSTEOARTHRITIS, UNSPECIFIED 12/27/2015 RABIA TOUSSAINT MD Ot M48.06 SPINAL STENOSIS, LUMBAR REGION 12/27/2015 RABIA TOUSSAINT MD Ot R91.8 OTHER NONSPECIFIC ABNORMAL FINDING OF TAMAR 12/27/2015 RABIA TOUSSAINT MD Ot Z79.899 OTHER HALF-WAY (CURRENT) DRUG THERAPY 12/27/2015 RABIA TOUSSAINT MD Ot Z85.46 PERSONAL HISTORY OF MALIGNANT NEOPLASM O 01/01/2016 RABIA TOUSSAINT MD Ot F17.210 NICOTINE DEPENDENCE, CIGARETTES, UNCOMPL 01/01/2016 RABIA TOUSSAINT MD Ot 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 01/01/2016 RABIA TOUSSAINT MD Ot K59.00 CONSTIPATION, UNSPECIFIED 01/01/2016 RABIA TOUSSAINT MD Ot M19.90 UNSPECIFIED OSTEOARTHRITIS, UNSPECIFIED 01/01/2016 RABIA TOUSSAINT MD Ot M48.06 SPINAL STENOSIS, LUMBAR REGION 01/01/2016 RABIA TOUSSAINT MD Ot R91.8 OTHER NONSPECIFIC ABNORMAL FINDING OF TAMAR 01/01/2016 RABIA TOUSSAINT MD Ot 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 01/01/2016 RABIA TOUSSAINT MD Ot Z85.46 PERSONAL HISTORY OF MALIGNANT NEOPLASM O 01/08/2016 RABIA TOUSSAINT MD Ot F17.210 NICOTINE DEPENDENCE, CIGARETTES, UNCOMPL 01/08/2016 RABIA TOUSSAINT MD Ot 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 01/08/2016 RABIA TOUSSAINT MD Ot K59.00 CONSTIPATION, UNSPECIFIED 01/08/2016 RABIA TOUSSAINT MD Ot M19.90 UNSPECIFIED OSTEOARTHRITIS, UNSPECIFIED 01/08/2016 RABIA TOUSSAINT MD Ot M48.06 SPINAL STENOSIS, LUMBAR REGION 01/08/2016 RABIA TOUSSAINT MD Ot R91.8 OTHER NONSPECIFIC ABNORMAL FINDING OF TAMAR 01/08/2016 RABIA TOUSSAINT MD Ot 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 01/08/2016 RABIA TOUSSAINT MD Ot Z85.46 PERSONAL HISTORY OF MALIGNANT NEOPLASM O 01/09/2016 RABIA TOUSSAINT MD Ot F17.210 NICOTINE DEPENDENCE, CIGARETTES, UNCOMPL 01/09/2016 RABIA TOUSSAINT MD Ot 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 01/09/2016 RABIA TOUSSAINT MD Ot K59.00 CONSTIPATION, UNSPECIFIED 01/09/2016 RABIA TOUSSAINT MD Ot M19.90 UNSPECIFIED OSTEOARTHRITIS, UNSPECIFIED 01/09/2016 RABIA TOUSSAINT MD Ot M48.06 SPINAL STENOSIS, LUMBAR REGION 01/09/2016 RABIA TOUSSAINT MD Ot R91.8 OTHER NONSPECIFIC ABNORMAL FINDING OF TAMAR 01/09/2016 RABIA TOUSSAINT MD Ot 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 01/09/2016 RABIA TOUSSAINT MD Ot Z85.46 PERSONAL HISTORY OF MALIGNANT NEOPLASM O 01/28/2016 MANUEL ADLER Ot I95.9 HYPOTENSION, UNSPECIFIED 01/30/2016 RABIA TOUSSAINT MD Ot F17.210 NICOTINE DEPENDENCE, CIGARETTES, UNCOMPL 01/30/2016 RABIA TOUSSAINT MD Ot 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 01/30/2016 RABIA TOUSSAINT MD Ot K59.00 CONSTIPATION, UNSPECIFIED 01/30/2016 RABIA TOUSSAINT MD Ot M19.90 UNSPECIFIED OSTEOARTHRITIS, UNSPECIFIED 01/30/2016 RABIA TOUSSAINT MD Ot M48.06 SPINAL STENOSIS, LUMBAR REGION 01/30/2016 RABIA TOUSSAINT MD Ot R91.8 OTHER NONSPECIFIC ABNORMAL FINDING OF TAMAR 01/30/2016 RABIA TOUSSAINT MD Ot 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 01/30/2016 RABIA TOUSSAINT MD Ot Z85.46 PERSONAL HISTORY OF MALIGNANT NEOPLASM O 01/31/2016 MANUEL ADLER Ot I95.9 HYPOTENSION, UNSPECIFIED 01/31/2016 MANUEL ADLER Ot R42 DIZZINESS AND GIDDINESS 02/25/2016 MANUEL ADLER Ot I95.9 HYPOTENSION, UNSPECIFIED 02/25/2016 MANUEL ADLER Ot R42 DIZZINESS AND GIDDINESS 02/27/2016 RABIA TOUSSAINT MD Ot 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 OF LOWER LOBE, LEFT B 02/27/2016 RABIA TOUSSAINT MD Ot E83.42 HYPOMAGNESEMIA 02/27/2016 RABIA TOUSSAINT MD Ot F17.210 NICOTINE DEPENDENCE, CIGARETTES, UNCOMPL 02/27/2016 RABIA TOUSSAINT MD Ot 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 02/27/2016 RABIA TOUSSAINT MD Ot K59.00 CONSTIPATION, UNSPECIFIED 02/27/2016 RABIA TOUSSAINT MD Ot M19.90 UNSPECIFIED OSTEOARTHRITIS, UNSPECIFIED 02/27/2016 RABIA TOUSSAINT MD Ot M48.06 SPINAL STENOSIS, LUMBAR REGION 02/27/2016 RABIA TOUSSAINT MD Ot R91.8 OTHER NONSPECIFIC ABNORMAL FINDING OF TAMAR 02/27/2016 RABIA TOUSSAINT MD Ot Z51.11 ENCOUNTER FOR ANTINEOPLASTIC CHEMOTHERAP 02/27/2016 RABIA TOUSSAINT MD Ot Z79.899 OTHER HALF-WAY (CURRENT) DRUG THERAPY 02/27/2016 RABIA TOUSSAINT MD Ot Z85.46 PERSONAL HISTORY OF MALIGNANT NEOPLASM O 03/14/2016 POOJA SHAW LIGHT INDUSTRIAL Ot 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 OF LOWER LOBE, LEFT B 03/14/2016 POOJA SHAW LIGHT INDUSTRIAL Ot F17.210 NICOTINE DEPENDENCE, CIGARETTES, UNCOMPL 03/14/2016 POOJA SHAW LIGHT INDUSTRIAL Ot 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 03/14/2016 POOJA SHAW LIGHT INDUSTRIAL Ot K59.00 CONSTIPATION, UNSPECIFIED 03/14/2016 POOJA SHAW LIGHT INDUSTRIAL Ot M19.90 UNSPECIFIED OSTEOARTHRITIS, UNSPECIFIED 03/14/2016 POOJA SHAW S LIGHT INDUSTRIAL Ot M48.06 SPINAL STENOSIS, LUMBAR REGION 03/14/2016 POOJA SHAW S LIGHT INDUSTRIAL Ot R91.8 OTHER NONSPECIFIC ABNORMAL FINDING OF TAMAR 03/14/2016 POOJA SHAW LIGHT INDUSTRIAL Ot 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 03/14/2016 POOJA SHAW LIGHT INDUSTRIAL Ot Z85.46 PERSONAL HISTORY OF MALIGNANT NEOPLASM O 04/06/2016 RABIA TOUSSAINT MD Ot 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 OF LOWER LOBE, LEFT B 04/06/2016 RABIA TOUSSAINT MD Ot F17.210 NICOTINE DEPENDENCE, CIGARETTES, UNCOMPL 04/06/2016 RABIA TOUSSAINT MD Ot 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 04/06/2016 ARBIA TOUSSAINT MD Ot K59.00 CONSTIPATION, UNSPECIFIED 04/06/2016 RABIA TOUSSAINT MD Ot M19.90 UNSPECIFIED OSTEOARTHRITIS, UNSPECIFIED 04/06/2016 RABIA TOUSSAINT MD Ot M48.06 SPINAL STENOSIS, LUMBAR REGION 04/06/2016 RABIA TOUSSAINT MD Ot R91.8 OTHER NONSPECIFIC ABNORMAL FINDING OF TAMAR 04/06/2016 RABIA TOUSSAINT MD Ot Z51.11 ENCOUNTER FOR ANTINEOPLASTIC CHEMOTHERAP 04/06/2016 RABIA TOUSSAINT MD Ot 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 04/06/2016 RABIA TOUSSAINT MD Ot Z85.46 PERSONAL HISTORY OF MALIGNANT NEOPLASM O 04/07/2016 RABIA TOUSSAINT MD Ot F17.210 NICOTINE DEPENDENCE, CIGARETTES, UNCOMPL 04/07/2016 RABIA TOUSSAINT MD Ot 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 04/07/2016 RABIA TOUSSAINT MD Ot K59.00 CONSTIPATION, UNSPECIFIED 04/07/2016 RABIA TOUSSAINT MD Ot M19.90 UNSPECIFIED OSTEOARTHRITIS, UNSPECIFIED 04/07/2016 RABIA TOUSSAINT MD Ot M48.06 SPINAL STENOSIS, LUMBAR REGION 04/07/2016 RABIA TOUSSAINT MD Ot R91.8 OTHER NONSPECIFIC ABNORMAL FINDING OF TAMAR 04/07/2016 RABIA TOUSSAINT MD Ot Z79.899 OTHER HALF-WAY (CURRENT) DRUG THERAPY 04/07/2016 RABIA TOUSSAINT MD Ot Z85.46 PERSONAL HISTORY OF MALIGNANT NEOPLASM O 04/08/2016 RABIA TOUSSAINT MD Ot F17.210 NICOTINE DEPENDENCE, CIGARETTES, UNCOMPL 04/08/2016 RABIA TOUSSAINT MD Ot 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 04/08/2016 RABIA TOUSSAINT MD Ot K59.00 CONSTIPATION, UNSPECIFIED 04/08/2016 RABIA TOUSSAINT MD Ot M19.90 UNSPECIFIED OSTEOARTHRITIS, UNSPECIFIED 04/08/2016 RABIA TOUSSAINT MD Ot M48.06 SPINAL STENOSIS, LUMBAR REGION 04/08/2016 RABIA TOUSSAINT MD Ot R91.8 OTHER NONSPECIFIC ABNORMAL FINDING OF TAMAR 04/08/2016 RABIA TOUSSAINT MD Ot Z79.899 OTHER HALF-WAY (CURRENT) DRUG THERAPY 04/08/2016 RABIA TOUSSAINT MD Ot Z85.46 PERSONAL HISTORY OF MALIGNANT NEOPLASM O 04/09/2016 RABIA TOUSSAINT MD Ot F17.210 NICOTINE DEPENDENCE, CIGARETTES, UNCOMPL 04/09/2016 RABIA TOUSSAINT MD Ot 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 04/09/2016 RABIA TOUSSAINT MD Ot K59.00 CONSTIPATION, UNSPECIFIED 04/09/2016 RABIA TOUSSAINT MD Ot M19.90 UNSPECIFIED OSTEOARTHRITIS, UNSPECIFIED 04/09/2016 RABIA TOUSSAINT MD Ot M48.06 SPINAL STENOSIS, LUMBAR REGION 04/09/2016 RABIA TOUSSAINT MD Ot R91.8 OTHER NONSPECIFIC ABNORMAL FINDING OF TAMAR 04/09/2016 RABIA TOUSSAINT MD Ot Z79.899 OTHER HALF-WAY (CURRENT) DRUG THERAPY 04/09/2016 RABIA TOUSSAINT MD Ot Z85.46 PERSONAL HISTORY OF MALIGNANT NEOPLASM O 04/09/2016 RABIA TOUSSAINT MD Ot F17.210 NICOTINE DEPENDENCE, CIGARETTES, UNCOMPL 04/09/2016 RABIA TOUSSAINT MD Ot 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 04/09/2016 RABIA TOUSSAINT MD Ot K59.00 CONSTIPATION, UNSPECIFIED 04/09/2016 RABIA TOUSSAINT MD Ot M19.90 UNSPECIFIED OSTEOARTHRITIS, UNSPECIFIED 04/09/2016 RABIA TOUSSAINT MD Ot M48.06 SPINAL STENOSIS, LUMBAR REGION 04/09/2016 RABIA TOUSSAINT MD Ot R91.8 OTHER NONSPECIFIC ABNORMAL FINDING OF TAMAR 04/09/2016 RABIA TOUSSAINT MD Ot Z79.899 OTHER HALF-WAY (CURRENT) DRUG THERAPY 04/09/2016 RABIA TOUSSAINT MD Ot Z85.46 PERSONAL HISTORY OF MALIGNANT NEOPLASM O 04/10/2016 RABIA TOUSSAINT MD Ot F17.210 NICOTINE DEPENDENCE, CIGARETTES, UNCOMPL 04/10/2016 RABIA TOUSSAINT MD Ot 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 04/10/2016 RABIA TOUSSAINT MD Ot K59.00 CONSTIPATION, UNSPECIFIED 04/10/2016 RABIA TOUSSAINT MD Ot M19.90 UNSPECIFIED OSTEOARTHRITIS, UNSPECIFIED 04/10/2016 RABIA TOUSSAINT MD Ot M48.06 SPINAL STENOSIS, LUMBAR REGION 04/10/2016 RABIA TOUSSAINT MD Ot R91.8 OTHER NONSPECIFIC ABNORMAL FINDING OF TAMAR 04/10/2016 RABIA TOUSSAINT MD Ot 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 04/10/2016 RABIA TOUSSAINT MD Ot Z85.46 PERSONAL HISTORY OF MALIGNANT NEOPLASM O 04/16/2016 Ot 331.9 CEREB DEGENERATION NOS 04/16/2016 Ot 781.3 LACK OF COORDINATION 04/16/2016 Ot 724.5 BACKACHE NOS 04/16/2016 Ot 780.2 SYNCOPE AND COLLAPSE 04/16/2016 Ot 397.0 TRICUSPID VALVE DISEASE 04/16/2016 Ot 424.0 MITRAL VALVE DISORDER 04/16/2016 Ot 724.5 BACKACHE NOS 04/16/2016 Ot 780.2 SYNCOPE AND COLLAPSE 04/16/2016 GAYLE GIBBS, ALLEN Rojas Ot 723.1 CERVICALGIA 04/16/2016 ALLEN ARAUJO MD Ot V45.89 POSTSURGICAL STATES NEC 04/16/2016 LACEYLUCAS Giovanna LIGHT IND[employer]RIAL Ot 305.1 TOBACCO USE DISORDER 04/16/2016 LACEYLUCAS Giovanna L[employer]RIAL Ot 564.00 UNSPEC CONSTIPATION 04/16/2016 RHAMANLUCAS Giovanna LIGHT IND[employer]RIAL Ot 786.2 COUGH 04/16/2016 RAHMANLUCAS Giovanna LIGHT IND[employer]RIAL Ot 787.02 NAUSEA ALONE 04/16/2016 SARAVANAN GIBBS, LINDSEY Castrejon Ot 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-LUMBAR 04/16/2016 LINDSEY COE MD Ot 724.02 SPINAL STENOSIS, LUMBAR REG, W/OUT NEURO 04/16/2016 GAYLE GIBBS, ALLEN Rojas Ot 959.01 HEAD INJURY, NOS 04/16/2016 ALLEN ARAUJO MD Ot E000.8 OTHER EXTERNAL CAUSE STATUS 04/16/2016 ALLEN ARAUJO MD Ot E888.9 FALL NOS 04/16/2016 EDILBERTO MOULTON APRN Ot J90 PLEURAL EFFUSION, NOT ELSEWHERE CLASSIFI 04/16/2016 EDILBERTO MOULTON APRN Ot K59.00 CONSTIPATION, UNSPECIFIED 04/16/2016 MARIELA GIBBS, BRAYAN Heredia Ot K59.00 CONSTIPATION, UNSPECIFIED 04/16/2016 MARIELA GIBBS, BRAYAN Heredia Ot Z01.818 ENCOUNTER FOR OTHER PREPROCEDURAL EXAMIN 04/16/2016 BRAYAN SIERRA MD Ot Z01.818 ENCOUNTER FOR OTHER PREPROCEDURAL EXAMIN 04/16/2016 RADHA ALANIZ MD Ot F17.210 NICOTINE DEPENDENCE, CIGARETTES, UNCOMPL 04/16/2016 RADHA ALANIZ MD Ot Z08 ENCNTR FOR FOLLOW-UP EXAM AFTER TRTMT FO 04/16/2016 RADHA ALANIZ MD Ot 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 04/16/2016 RADHA ALANIZ MD Ot Z85.46 PERSONAL HISTORY OF MALIGNANT NEOPLASM O 04/16/2016 RADHA ALANIZ MD Ot 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 OF LOWER LOBE, LEFT B 04/16/2016 NORBERT GIBBS, RABIA Cai Ot 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 OF LOWER LOBE, LEFT B 04/16/2016 MANUEL ADLER Ot I95.9 HYPOTENSION, UNSPECIFIED 04/16/2016 MANUEL ADLER Ot R42 DIZZINESS AND GIDDINESS 04/16/2016 POOJA SHAW LIGHT INDUSTRIAL Ot 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 OF LOWER LOBE, LEFT B 04/16/2016 POOJA SHAW LIGHT INDUSTRIAL Ot F17.210 NICOTINE DEPENDENCE, CIGARETTES, UNCOMPL 04/16/2016 POOJA SHAW LIGHT INDUSTRIAL Ot 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 04/16/2016 POOJA SHAW LIGHT INDUSTRIAL Ot K59.00 CONSTIPATION, UNSPECIFIED 04/16/2016 POOJA SHAW LIGHT INDUSTRIAL Ot M19.90 UNSPECIFIED OSTEOARTHRITIS, UNSPECIFIED 04/16/2016 POOJA SHAW LIGHT INDUSTRIAL Ot M48.06 SPINAL STENOSIS, LUMBAR REGION 04/16/2016 POOJA SHAW LIGHT INDUSTRIAL Ot R91.8 OTHER NONSPECIFIC ABNORMAL FINDING OF TAMAR 04/16/2016 POOJA SHAW LIGHT INDUSTRIAL Ot Z79.899 OTHER HALF-WAY (CURRENT) DRUG THERAPY 04/16/2016 POOJA SHAW LIGHT INDUSTRIAL Ot Z85.46 PERSONAL HISTORY OF MALIGNANT NEOPLASM O 04/16/2016 POOJA SHAW LIGHT INDUSTRIAL Ot 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 OF LOWER LOBE, LEFT B 04/16/2016 RABIA TOUSSAINT MD Ot F17.210 NICOTINE DEPENDENCE, CIGARETTES, UNCOMPL 04/16/2016 RABIA TOUSSAINT MD Ot 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 04/16/2016 RABIA TOUSSAINT MD Ot K59.00 CONSTIPATION, UNSPECIFIED 04/16/2016 RABIA TOUSSAINT MD Ot M19.90 UNSPECIFIED OSTEOARTHRITIS, UNSPECIFIED 04/16/2016 RABIA TOUSSAINT MD Ot M48.06 SPINAL STENOSIS, LUMBAR REGION 04/16/2016 RABIA TOUSSAINT MD Ot R91.8 OTHER NONSPECIFIC ABNORMAL FINDING OF TAMAR 04/16/2016 RABIA TOUSSAINT MD Ot Z79.899 OTHER HALF-WAY (CURRENT) DRUG THERAPY 04/16/2016 RABIA TOUSSAINT MD Ot Z85.46 PERSONAL HISTORY OF MALIGNANT NEOPLASM O 04/17/2016 POOJA SHAW LIGHT INDUSTRIAL Ot 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 OF LOWER LOBE, LEFT B 04/17/2016 POOJA SHAW LIGHT INDUSTRIAL Ot F17.210 NICOTINE DEPENDENCE, CIGARETTES, UNCOMPL 04/17/2016 COLIN POOJA Arteaga LIGHT INDUSTRIAL Ot 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 04/17/2016 SHAW POOJA Arteaga LIGHT INDUSTRIAL Ot K59.00 CONSTIPATION, UNSPECIFIED 04/17/2016 SHAW POOJA Arteaga LIGHT INDUSTRIAL Ot M19.90 UNSPECIFIED OSTEOARTHRITIS, UNSPECIFIED 04/17/2016 COLIN POOJA Arteaga LIGHT INDUSTRIAL Ot M48.06 SPINAL STENOSIS, LUMBAR REGION 04/17/2016 SHAW POOJA Arteaga LIGHT INDUSTRIAL Ot R91.8 OTHER NONSPECIFIC ABNORMAL FINDING OF TAMAR 04/17/2016 SHAW POOJA Artegaa LIGHT INDUSTRIAL Ot Z79.899 OTHER HALF-WAY (CURRENT) DRUG THERAPY 04/17/2016 COLIN POOJA Arteaga LIGHT INDUSTRIAL Ot Z85.46 PERSONAL HISTORY OF MALIGNANT NEOPLASM O 04/21/2016 POOJA SHAW Ot 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 OF LOWER LOBE, LEFT B 04/21/2016 RABIA TOUSSAINT MD Ot A41.9 SEPSIS, UNSPECIFIED ORGANISM 04/21/2016 RABIA TOUSSAINT MD Ot 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 04/21/2016 RABIA TOUSSAINT MD Ot E83.42 HYPOMAGNESEMIA 04/21/2016 RABIA TOUSSAINT MD Ot E87.6 HYPOKALEMIA 04/21/2016 RABIA TOUSSAINT MD Ot F17.210 NICOTINE DEPENDENCE, CIGARETTES, UNCOMPL 04/21/2016 RABIA TOUSSAINT MD Ot F41.9 ANXIETY DISORDER, UNSPECIFIED 04/21/2016 RABIA TOUSSAINT MD Ot G43.909 MIGRAINE, UNSP, NOT INTRACTABLE, WITHOUT 04/21/2016 RABIA TOUSSAINT MD Ot J18.9 PNEUMONIA, UNSPECIFIED ORGANISM 04/21/2016 RABIA TOUSSAINT MD Ot J44.9 CHRONIC OBSTRUCTIVE PULMONARY DISEASE, U 04/21/2016 RABIA TOUSSAINT MD Ot 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 04/21/2016 RABIA TOUSSAINT MD Ot M15.9 POLYOSTEOARTHRITIS, UNSPECIFIED 04/21/2016 RABIA TOUSSAINT MD Ot M48.06 SPINAL STENOSIS, LUMBAR REGION 04/21/2016 RABIA TOUSSAINT MD Ot Z85.46 PERSONAL HISTORY OF MALIGNANT NEOPLASM O 04/21/2016 RABIA TOUSSAINT MD Ot Z92.21 PERSONAL HISTORY OF ANTINEOPLASTIC CHEMO 04/21/2016 RABIA TOUSSAINT MD Ot Z92.3 PERSONAL HISTORY OF IRRADIATION 04/29/2016 RABIA TOUSSAINT MD, Ot 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 OF LOWER LOBE, LEFT B 04/29/2016 RABIA TOUSSAINT MD, Ot 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 04/29/2016 RABIA TOUSSAINT MD, Ot D63.0 ANEMIA IN NEOPLASTIC DISEASE 04/29/2016 RABIA TOUSSAINT MD, Ot E87.6 HYPOKALEMIA 04/29/2016 RABIA TOUSSAINT MD, Ot F17.210 NICOTINE DEPENDENCE, CIGARETTES, UNCOMPL 04/29/2016 RABIA TOUSSAINT MD Ot F41.9 ANXIETY DISORDER, UNSPECIFIED 04/29/2016 RABIA TOUSSAINT MD, Ot G47.10 HYPERSOMNIA, UNSPECIFIED 04/29/2016 RABIA TOUSSAINT MD, Ot J44.9 CHRONIC OBSTRUCTIVE PULMONARY DISEASE, U 04/29/2016 RABIA TOUSSAINT MD, Ot M15.9 POLYOSTEOARTHRITIS, UNSPECIFIED 04/29/2016 RABIA TOUSSAINT MD, Ot M48.06 SPINAL STENOSIS, LUMBAR REGION 04/29/2016 RABIA TOUSSAINT MD Ot R26.2 DIFFICULTY IN WALKING, NOT ELSEWHERE CLA 04/29/2016 RABIA TOUSSAINT MD Ot R41.82 ALTERED MENTAL STATUS, UNSPECIFIED 04/29/2016 RABIA TOUSSAINT MD Ot R53.1 WEAKNESS 05/23/2016 RABIA TOUSSAINT MD, Ot 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 OF LOWER LOBE, LEFT B 05/23/2016 ARBIA TOUSSAINT MD, Ot F17.210 NICOTINE DEPENDENCE, CIGARETTES, UNCOMPL 05/23/2016 RABIA TOUSSAINT MD Ot 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 05/23/2016 RABIA TOUSSAINT MD, Ot K59.00 CONSTIPATION, UNSPECIFIED 05/23/2016 RABIA TOUSSAINT MD Ot M19.90 UNSPECIFIED OSTEOARTHRITIS, UNSPECIFIED 05/23/2016 RABIA TOUSSAINT MD, Ot M48.06 SPINAL STENOSIS, LUMBAR REGION 05/23/2016 RABIA TOUSSAINT MD Ot R91.8 OTHER NONSPECIFIC ABNORMAL FINDING OF TAMAR 05/23/2016 RABIA TOUSSAINT MD Ot Z51.11 ENCOUNTER FOR ANTINEOPLASTIC CHEMOTHERAP 05/23/2016 RABIA TOUSSAINT MD Ot 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 05/23/2016 RABIA TOUSSAINT MD Ot Z85.46 PERSONAL HISTORY OF MALIGNANT NEOPLASM O 05/25/2016 RABIA TOUSSAINT MD, Ot F17.210 NICOTINE DEPENDENCE, CIGARETTES, UNCOMPL 05/25/2016 RABIA TOUSSAINT MD Ot 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 05/25/2016 RABIA TOUSSAINT MD Ot K59.00 CONSTIPATION, UNSPECIFIED 05/25/2016 RABIA TOUSSAINT MD Ot M19.90 UNSPECIFIED OSTEOARTHRITIS, UNSPECIFIED 05/25/2016 RABIA TOUSSAINT MD Ot M48.06 SPINAL STENOSIS, LUMBAR REGION 05/25/2016 RABIA TOUSSAINT MD Ot R91.8 OTHER NONSPECIFIC ABNORMAL FINDING OF TAMAR 05/25/2016 RABIA TOUSSAINT MD Ot Z79.899 OTHER HALF-WAY (CURRENT) DRUG THERAPY 05/25/2016 RABIA TOUSSAINT MD Ot Z85.46 PERSONAL HISTORY OF MALIGNANT NEOPLASM O 05/30/2016 GAYLE GIBBS, ALLEN A Ot E83.42 HYPOMAGNESEMIA 05/30/2016 GAYLE GIBBS, ALLEN A Ot E87.6 HYPOKALEMIA 06/04/2016 GAYLE GIBBS, ALLEN A Ot E83.42 HYPOMAGNESEMIA 06/04/2016 ALLEN ARAUJO MD A Ot E87.6 HYPOKALEMIA 06/04/2016 GAYLE GIBBS, ALLEN A Ot E83.42 HYPOMAGNESEMIA 06/04/2016 GAYLE GIBBS, ALLEN A Ot E87.6 HYPOKALEMIA 06/04/2016 GAYLE GIBBS, ALLEN A Ot E83.42 HYPOMAGNESEMIA 06/04/2016 GAYLE GIBBS, ALLEN A Ot E87.6 HYPOKALEMIA 06/05/2016 RABIA TOUSSAINT MD Ot F17.210 NICOTINE DEPENDENCE, CIGARETTES, UNCOMPL 06/05/2016 RABIA TOUSSAINT MD Ot 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 06/05/2016 RABIA TOUSSAINT MD Ot K59.00 CONSTIPATION, UNSPECIFIED 06/05/2016 RABIA TOUSSAINT MD Ot M19.90 UNSPECIFIED OSTEOARTHRITIS, UNSPECIFIED 06/05/2016 RABIA TOUSSAINT MD Ot M48.06 SPINAL STENOSIS, LUMBAR REGION 06/05/2016 RABIA TOUSSAINT MD Ot R91.8 OTHER NONSPECIFIC ABNORMAL FINDING OF TAMAR 06/05/2016 RABIA TOUSSAINT MD Ot 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 06/05/2016 RABIA TOUSSAINT MD Ot Z85.46 PERSONAL HISTORY OF MALIGNANT NEOPLASM O 06/09/2016 RABIA TOUSSAINT MD Ot 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 OF LOWER LOBE, LEFT B 06/09/2016 RABIA TOUSSAINT MD Ot F17.210 NICOTINE DEPENDENCE, CIGARETTES, UNCOMPL 06/09/2016 RABIA TOUSSAINT MD Ot G89.4 CHRONIC PAIN SYNDROME 06/09/2016 RABIA TOUSSAINT MD Ot 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 06/09/2016 RABIA TOUSSAINT MD Ot K59.00 CONSTIPATION, UNSPECIFIED 06/09/2016 RABIA TOUSSAINT MD Ot M19.90 UNSPECIFIED OSTEOARTHRITIS, UNSPECIFIED 06/09/2016 RABIA TOUSSAINT MD Ot M48.06 SPINAL STENOSIS, LUMBAR REGION 06/09/2016 RABIA TOUSSAINT MD Ot R42 DIZZINESS AND GIDDINESS 06/09/2016 RABIA TOUSSAINT MD Ot R91.8 OTHER NONSPECIFIC ABNORMAL FINDING OF TAMAR 06/09/2016 RABIA TOUSSAINT MD Ot Z51.11 ENCOUNTER FOR ANTINEOPLASTIC CHEMOTHERAP 06/09/2016 RABIA TOUSSAINT MD Ot 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 06/09/2016 RABIA TOUSSAINT MD Ot Z85.46 PERSONAL HISTORY OF MALIGNANT NEOPLASM O 06/16/2016 RABIA TOUSSAINT MD Ot F17.210 NICOTINE DEPENDENCE, CIGARETTES, UNCOMPL 06/16/2016 RABIA TOUSSAINT MD Ot 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 06/16/2016 RABIA TOUSSAINT MD Ot K59.00 CONSTIPATION, UNSPECIFIED 06/16/2016 RABIA TOUSSAINT MD Ot M19.90 UNSPECIFIED OSTEOARTHRITIS, UNSPECIFIED 06/16/2016 RABIA TOUSSAINT MD Ot M48.06 SPINAL STENOSIS, LUMBAR REGION 06/16/2016 RABIA TOUSSAINT MD Ot R91.8 OTHER NONSPECIFIC ABNORMAL FINDING OF TAMAR 06/16/2016 RABIA TOUSSAINT MD Ot 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 06/16/2016 RABIA TOUSSAINT MD Ot Z85.46 PERSONAL HISTORY OF MALIGNANT NEOPLASM O 06/19/2016 ALLEN ARAUJO MD Ot E83.42 HYPOMAGNESEMIA 06/19/2016 ALLEN AARUJO MD Ot E87.6 HYPOKALEMIA 07/03/2016 RABIA TOUSSAINT MD Ot F17.210 NICOTINE DEPENDENCE, CIGARETTES, UNCOMPL 07/03/2016 RABIA TOUSSAINT MD Ot 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 07/03/2016 RABIA TOUSSAINT MD Ot K59.00 CONSTIPATION, UNSPECIFIED 07/03/2016 RABIA TOUSSAINT MD Ot M19.90 UNSPECIFIED OSTEOARTHRITIS, UNSPECIFIED 07/03/2016 NORBERT GIBBS RABIA Trell Ot M48.06 SPINAL STENOSIS, LUMBAR REGION 07/03/2016 NORBERT GIBBS RABIA Trell Ot R91.8 OTHER NONSPECIFIC ABNORMAL FINDING OF TAMAR 07/03/2016 NORBERT GIBBS RABIA Trell Ot 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 07/03/2016 NORBERT GIBBS RABIA Trell Ot Z85.46 PERSONAL HISTORY OF MALIGNANT NEOPLASM O 07/09/2016 Ot 331.9 CEREB DEGENERATION NOS 07/09/2016 Ot 781.3 LACK OF COORDINATION 07/09/2016 Ot 724.5 BACKACHE NOS 07/09/2016 Ot 780.2 SYNCOPE AND COLLAPSE 07/09/2016 Ot 397.0 TRICUSPID VALVE DISEASE 07/09/2016 Ot 424.0 MITRAL VALVE DISORDER 07/09/2016 Ot 724.5 BACKACHE NOS 07/09/2016 Ot 780.2 SYNCOPE AND COLLAPSE 07/09/2016 GAYLE GIBBS, ALLEN Rojas Ot 723.1 CERVICALGIA 07/09/2016 ALLEN ARAUJO MD Ot V45.89 POSTSURGICAL STATES NEC 07/09/2016 LUCAS RAHMAN LIGHT INDUSTRIAL Ot 305.1 TOBACCO USE DISORDER 07/09/2016 LUCAS RAHMAN LIGHT INDUSTRIAL Ot 564.00 UNSPEC CONSTIPATION 07/09/2016 LUCAS RAHMAN LIGHT INDUSTRIAL Ot 786.2 COUGH 07/09/2016 LUCAS RAHMAN LIGHT INDUSTRIAL Ot 787.02 NAUSEA ALONE 07/09/2016 SARAVANAN GIBBS, LINDSEY Castrejon Ot 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-LUMBAR 07/09/2016 LINDSEY COE MD Ot 724.02 SPINAL STENOSIS, LUMBAR REG, W/OUT NEURO 07/09/2016 ALLEN ARAUJO MD Ot 959.01 HEAD INJURY, NOS 07/09/2016 ALLEN ARAUJO MD Ot E000.8 OTHER EXTERNAL CAUSE STATUS 07/09/2016 ALLEN ARAUJO MD Ot E888.9 FALL NOS 07/09/2016 EDILBERTO MOULTON APRN Ot J90 PLEURAL EFFUSION, NOT ELSEWHERE CLASSIFI 07/09/2016 EDILBERTO MOULTON APRN Ot K59.00 CONSTIPATION, UNSPECIFIED 07/09/2016 BRAYAN SIERRA MD Ot K59.00 CONSTIPATION, UNSPECIFIED 07/09/2016 MARIELA GIBBS, BRAYAN Heredia Ot Z01.818 ENCOUNTER FOR OTHER PREPROCEDURAL EXAMIN 07/09/2016 MARIELA GIBBS, BRAYAN Heredia Ot Z01.818 ENCOUNTER FOR OTHER PREPROCEDURAL EXAMIN 07/09/2016 RADHA ALANIZ MD Ot F17.210 NICOTINE DEPENDENCE, CIGARETTES, UNCOMPL 07/09/2016 RADHA ALANIZ MD Ot Z08 ENCNTR FOR FOLLOW-UP EXAM AFTER TRTMT FO 07/09/2016 RADHA ALANIZ MD Ot 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 07/09/2016 RADHA ALANIZ MD Ot Z85.46 PERSONAL HISTORY OF MALIGNANT NEOPLASM O 07/09/2016 RADHA ALANIZ MD Ot 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 OF LOWER LOBE, LEFT B 07/09/2016 RABIA TOUSSAINT MD Ot 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 OF LOWER LOBE, LEFT B 07/09/2016 MANUEL ADLER Ot I95.9 HYPOTENSION, UNSPECIFIED 07/09/2016 MANUEL ADLER Ot R42 DIZZINESS AND GIDDINESS 07/09/2016 POOJA SHAWP Ot 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 OF LOWER LOBE, LEFT B 07/09/2016 POOJA SHAW Ot F17.210 NICOTINE DEPENDENCE, CIGARETTES, UNCOMPL 07/09/2016 POOJA SHAW LIGHT INDUSTRIAL Ot 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 07/09/2016 POOJA SHAWP Ot K59.00 CONSTIPATION, UNSPECIFIED 07/09/2016 POOJA SHAWP Ot M19.90 UNSPECIFIED OSTEOARTHRITIS, UNSPECIFIED 07/09/2016 POOJA SHAW LIGHT INDUSTRIAL Ot M48.06 SPINAL STENOSIS, LUMBAR REGION 07/09/2016 POOJA SHAW LIGHT INDUSTRIAL Ot R91.8 OTHER NONSPECIFIC ABNORMAL FINDING OF TAMAR 07/09/2016 POOJA SHAW LIGHT INDUSTRIAL Ot 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 07/09/2016 POOJA SHAW LIGHT INDUSTRIAL Ot Z85.46 PERSONAL HISTORY OF MALIGNANT NEOPLASM O 07/09/2016 POOJA SHAW LIGHT INDUSTRIAL Ot 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 OF LOWER LOBE, LEFT B 07/09/2016 GAYLE GIBBS, ALLEN Rojas Ot E83.42 HYPOMAGNESEMIA 07/09/2016 GAYLE GIBBS, ALLEN Rojas Ot E87.6 HYPOKALEMIA 07/09/2016 RABIA TOUSSAINT MD Ot F17.210 NICOTINE DEPENDENCE, CIGARETTES, UNCOMPL 07/09/2016 RABIA TOUSSAINT MD Ot 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 07/09/2016 RABIA TOUSSAINT MD Ot K59.00 CONSTIPATION, UNSPECIFIED 07/09/2016 RABIA TOUSSAINT MD Ot M19.90 UNSPECIFIED OSTEOARTHRITIS, UNSPECIFIED 07/09/2016 RABIA TOUSSAINT MD Ot M48.06 SPINAL STENOSIS, LUMBAR REGION 07/09/2016 RABIA TOUSSAINT MD Ot R91.8 OTHER NONSPECIFIC ABNORMAL FINDING OF TAMAR 07/09/2016 RABIA TOUSSAINT MD Ot Z79.899 OTHER HALF-WAY (CURRENT) DRUG THERAPY 07/09/2016 RABIA TOUSSAINT MD Ot Z85.46 PERSONAL HISTORY OF MALIGNANT NEOPLASM O 07/10/2016 RABIA TOUSSAINT MD Ot 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 OF LOWER LOBE, LEFT B 07/10/2016 RABIA TOUSSAINT MD Ot Z98.1 ARTHRODESIS STATUS 07/11/2016 RABIA TOUSSAINT MD Ot 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 OF LOWER LOBE, LEFT B 07/11/2016 RABIA TOUSSAINT MD Ot Z98.1 ARTHRODESIS STATUS 07/29/2016 RABIA TOUSSAINT MD Ot 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 OF LOWER LOBE, LEFT B 07/29/2016 RABIA TOUSSAINT MD Ot Z98.1 ARTHRODESIS STATUS 08/06/2016 RABIA TOUSSAINT MD Ot F17.210 NICOTINE DEPENDENCE, CIGARETTES, UNCOMPL 08/06/2016 RABIA TOUSSAINT MD Ot 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 08/06/2016 RABIA TOUSSAINT MD Ot K59.00 CONSTIPATION, UNSPECIFIED 08/06/2016 RABIA TOUSSAINT MD Ot M19.90 UNSPECIFIED OSTEOARTHRITIS, UNSPECIFIED 08/06/2016 RABIA TOUSSAINT MD Ot M48.06 SPINAL STENOSIS, LUMBAR REGION 08/06/2016 RABIA TOUSSAINT MD Ot R91.8 OTHER NONSPECIFIC ABNORMAL FINDING OF TAMAR 08/06/2016 RABIA TOUSSAINT MD Ot 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 08/06/2016 RABIA TOUSSAINT MD Ot Z85.46 PERSONAL HISTORY OF MALIGNANT NEOPLASM O 09/04/2016 Ot 185 MALIGN NEOPL PROSTATE 09/04/2016 Ot 724.02 SPINAL STENOSIS-LUMBAR 09/04/2016 Ot V45.4 ARTHRODESIS STATUS 09/04/2016 Ot 185 MALIGN NEOPL PROSTATE 09/04/2016 Ot 724.02 SPINAL STENOSIS-LUMBAR 09/04/2016 Ot V45.4 ARTHRODESIS STATUS 09/04/2016 Ot 185 MALIGN NEOPL PROSTATE 09/04/2016 Ot 724.02 SPINAL STENOSIS-LUMBAR 09/04/2016 Ot V45.4 ARTHRODESIS STATUS 09/04/2016 Ot 331.9 CEREB DEGENERATION NOS 09/04/2016 Ot 781.3 LACK OF COORDINATION 09/04/2016 Ot 724.5 BACKACHE NOS 09/04/2016 Ot 780.2 SYNCOPE AND COLLAPSE 09/04/2016 Ot 397.0 TRICUSPID VALVE DISEASE 09/04/2016 Ot 424.0 MITRAL VALVE DISORDER 09/04/2016 Ot 724.5 BACKACHE NOS 09/04/2016 Ot 780.2 SYNCOPE AND COLLAPSE 09/04/2016 GAYLE GIBBS, ALLEN Rojas Ot 723.1 CERVICALGIA 09/04/2016 ALLEN ARAUJO MD Ot V45.89 POSTSURGICAL STATES NEC 09/04/2016 LUCAS RAHMAN LIGHT INDUSTRIAL Ot 305.1 TOBACCO USE DISORDER 09/04/2016 LUCAS RAHMAN LIGHT INDUSTRIAL Ot 564.00 UNSPEC CONSTIPATION 09/04/2016 LUCAS RAHMAN LIGHT INDUSTRIAL Ot 786.2 COUGH 09/04/2016 LUCAS ARHMAN LIGHT INDUSTRIAL Ot 787.02 NAUSEA ALONE 09/04/2016 SARAVANAN IGBBS, LINDSEY Castrejon Ot 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-LUMBAR 09/04/2016 SARAVANAN GIBBS, LINDSEY Castrejon Ot 724.02 SPINAL STENOSIS, LUMBAR REG, W/OUT NEURO 09/04/2016 ALLEN ARAUJO MD Ot 959.01 HEAD INJURY, NOS 09/04/2016 ALLEN ARAUJO MD Ot E000.8 OTHER EXTERNAL CAUSE STATUS 09/04/2016 ALLEN ARAUJO MD Ot E888.9 FALL NOS 09/04/2016 EDILBERTO MOULTON CORE MAKER Ot J90 PLEURAL EFFUSION, NOT ELSEWHERE CLASSIFI 09/04/2016 EDILBERTO MOULTON CORE MAKER Ot K59.00 CONSTIPATION, UNSPECIFIED 09/04/2016 BRAYAN SIERRA MD Ot K59.00 CONSTIPATION, UNSPECIFIED 09/04/2016 MARIELA GIBBS, BRAYAN Heredia Ot Z01.818 ENCOUNTER FOR OTHER PREPROCEDURAL EXAMIN 09/04/2016 MARIELA GIBBS, BRAYAN Heredia Ot Z01.818 ENCOUNTER FOR OTHER PREPROCEDURAL EXAMIN 09/04/2016 RADHA ALANIZ MD Ot F17.210 NICOTINE DEPENDENCE, CIGARETTES, UNCOMPL 09/04/2016 RADHA ALANIZ MD Ot Z08 ENCNTR FOR FOLLOW-UP EXAM AFTER TRTMT FO 09/04/2016 RADHA ALANIZ MD Ot Z79.899 OTHER HALF-WAY (CURRENT) DRUG THERAPY 09/04/2016 RADHA ALANIZ MD Ot Z85.46 PERSONAL HISTORY OF MALIGNANT NEOPLASM O 09/04/2016 RADHA ALANIZ MD Ot 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 OF LOWER LOBE, LEFT B 09/04/2016 RABIA TOUSSAINT MD Ot 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 OF LOWER LOBE, LEFT B 09/04/2016 MANUEL ADLER Ot I95.9 HYPOTENSION, UNSPECIFIED 09/04/2016 MANUEL ADLER Ot R42 DIZZINESS AND GIDDINESS 09/04/2016 POOJA SHAWP Ot 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 OF LOWER LOBE, LEFT B 09/04/2016 POOJA SHAW Ot F17.210 NICOTINE DEPENDENCE, CIGARETTES, UNCOMPL 09/04/2016 POOJA SHAW LIGHT INDUSTRIAL Ot 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 09/04/2016 POOJA SHAW LIGHT INDUSTRIAL Ot K59.00 CONSTIPATION, UNSPECIFIED 09/04/2016 POOJA SHAWP Ot M19.90 UNSPECIFIED OSTEOARTHRITIS, UNSPECIFIED 09/04/2016 POOJA SHAW LIGHT INDUSTRIAL Ot M48.06 SPINAL STENOSIS, LUMBAR REGION 09/04/2016 POOJA SHAW LIGHT INDUSTRIAL Ot R91.8 OTHER NONSPECIFIC ABNORMAL FINDING OF TAMAR 09/04/2016 POOJA SHAW LIGHT INDUSTRIAL Ot Z79.899 OTHER HALF-WAY (CURRENT) DRUG THERAPY 09/04/2016 POOJA SHAW LIGHT INDUSTRIAL Ot Z85.46 PERSONAL HISTORY OF MALIGNANT NEOPLASM O 09/04/2016 POOJA SHAW LIGHT INDUSTRIAL Ot 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 OF LOWER LOBE, LEFT B 09/04/2016 GAYLE GIBBS, ALLEN Rojas Ot E83.42 HYPOMAGNESEMIA 09/04/2016 GAYLE GIBBS, ALLEN Rojas Ot E87.6 HYPOKALEMIA 09/04/2016 RABIA TOUSSAINT MD Ot F17.210 NICOTINE DEPENDENCE, CIGARETTES, UNCOMPL 09/04/2016 RABIA TOUSSAINT MD Ot 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 09/04/2016 RABIA TOUSSAINT MD Ot K59.00 CONSTIPATION, UNSPECIFIED 09/04/2016 RABIA TOUSSAINT MD, Ot M19.90 UNSPECIFIED OSTEOARTHRITIS, UNSPECIFIED 09/04/2016 RABIA TOUSSAINT MD Ot M48.06 SPINAL STENOSIS, LUMBAR REGION 09/04/2016 RABIA TOUSSAINT MD Ot R91.8 OTHER NONSPECIFIC ABNORMAL FINDING OF TAMAR 09/04/2016 RABIA TOUSSAINT MD Ot Z79.899 OTHER HALF-WAY (CURRENT) DRUG THERAPY 09/04/2016 RABIA TOUSSAINT MD Ot Z85.46 PERSONAL HISTORY OF MALIGNANT NEOPLASM O 09/04/2016 RABIA TOUSSAINT MD Ot 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 OF LOWER LOBE, LEFT B 09/04/2016 RABIA TOUSSAINT MD Ot Z98.1 ARTHRODESIS STATUS 09/04/2016 Ot 185 MALIGN NEOPL PROSTATE 09/04/2016 Ot 724.02 SPINAL STENOSIS-LUMBAR 09/04/2016 Ot V45.4 ARTHRODESIS STATUS 09/04/2016 Ot 331.9 CEREB DEGENERATION NOS 09/04/2016 Ot 781.3 LACK OF COORDINATION 09/11/2016 RABIA TOUSSAINT MD Ot F17.210 NICOTINE DEPENDENCE, CIGARETTES, UNCOMPL 09/11/2016 RABIA TOUSSAINT MD Ot 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 09/11/2016 RABIA TOUSSAINT MD Ot K59.00 CONSTIPATION, UNSPECIFIED 09/11/2016 RABIA TOUSSAINT MD Ot M19.90 UNSPECIFIED OSTEOARTHRITIS, UNSPECIFIED 09/11/2016 RABIA TOUSSAINT MD Ot M48.06 SPINAL STENOSIS, LUMBAR REGION 09/11/2016 RABIA TOUSSAINT MD Ot R91.8 OTHER NONSPECIFIC ABNORMAL FINDING OF TAMAR 09/11/2016 RABIA TOUSSAINT MD Ot Z51.11 ENCOUNTER FOR ANTINEOPLASTIC CHEMOTHERAP 09/11/2016 RABIA TOUSSAINT MD Ot Z79.899 OTHER HALF-WAY (CURRENT) DRUG THERAPY 09/11/2016 RABIA TOUSSAINT MD Ot Z85.46 PERSONAL HISTORY OF MALIGNANT NEOPLASM O 09/12/2016 RABIA TOUSSAINT MD Ot F17.210 NICOTINE DEPENDENCE, CIGARETTES, UNCOMPL 09/12/2016 RABIA TOUSSAINT MD Ot 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 09/12/2016 RABIA TOUSSAINT MD Ot K59.00 CONSTIPATION, UNSPECIFIED 09/12/2016 RABIA TOUSSAINT MD Ot M19.90 UNSPECIFIED OSTEOARTHRITIS, UNSPECIFIED 09/12/2016 RABIA TOUSSAINT MD Ot M48.06 SPINAL STENOSIS, LUMBAR REGION 09/12/2016 RABIA TOUSSAINT MD Ot R91.8 OTHER NONSPECIFIC ABNORMAL FINDING OF TAMAR 09/12/2016 RABIA TOUSSAINT MD Ot Z51.11 ENCOUNTER FOR ANTINEOPLASTIC CHEMOTHERAP 09/12/2016 RABIA TOUSSAINT MD Ot 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 09/12/2016 RABIA TOUSSAINT MD Ot Z85.46 PERSONAL HISTORY OF MALIGNANT NEOPLASM O 09/19/2016 RABIA TOUSSAINT MD Ot F17.210 NICOTINE DEPENDENCE, CIGARETTES, UNCOMPL 09/19/2016 RABIA TOUSSAINT MD Ot 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 09/19/2016 RABIA TOUSSAINT MD Ot K59.00 CONSTIPATION, UNSPECIFIED 09/19/2016 RABIA TOUSSAINT MD Ot M19.90 UNSPECIFIED OSTEOARTHRITIS, UNSPECIFIED 09/19/2016 RABIA TOUSSAINT MD Ot M48.06 SPINAL STENOSIS, LUMBAR REGION 09/19/2016 RABIA TOUSSAINT MD Ot R91.8 OTHER NONSPECIFIC ABNORMAL FINDING OF TAMAR 09/19/2016 RABIA TOUSSAINT MD Ot 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 09/19/2016 RABIA TOUSSAINT MD Ot Z85.46 PERSONAL HISTORY OF MALIGNANT NEOPLASM O 10/02/2016 RABIA TOUSSAINT MD Ot F17.210 NICOTINE DEPENDENCE, CIGARETTES, UNCOMPL 10/02/2016 RABIA TOUSSAINT MD Ot 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 10/02/2016 RABIA TOUSSAINT MD Ot K59.00 CONSTIPATION, UNSPECIFIED 10/02/2016 RABIA TOUSSAINT MD Ot M19.90 UNSPECIFIED OSTEOARTHRITIS, UNSPECIFIED 10/02/2016 RABIA TOUSSAINT MD Ot M48.06 SPINAL STENOSIS, LUMBAR REGION 10/02/2016 RABIA TOUSSAINT MD Ot R91.8 OTHER NONSPECIFIC ABNORMAL FINDING OF TAMAR 10/02/2016 RABIA TOUSSAINT MD Ot 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 10/02/2016 RABIA TOUSSAINT MD Ot Z85.46 PERSONAL HISTORY OF MALIGNANT NEOPLASM O Procedures Code [place] [address] INDIV PSYTX 45/50 MIN 08/26/2012 30188 PSYTX PT&/FAMILY 45 MINUTES 10/08/2012 [id number] DRAINAGE OF LEFT PLEURAL CAVITY, PERC AP 06/08/2015 Results Test Result Range Complete blood count (CBC) with automated white blood cell (WBC) differential - 04/16/16 09:13 Blood leukocytes automated count (number/volume) 12.9 10*3/ uL 4.3-11.0 Blood erythrocytes automated count (number/volume) 3.74 10*6 /uL 4.35-5.85 Venous blood hemoglobin measurement (mass/volume) 12.5 g/dL 13.3-17.7 Blood hematocrit (volume fraction) 38 % 40-54 Automated erythrocyte mean corpuscular volume 100 [foz_us] 80-99 Automated erythrocyte mean corpuscular hemoglobin (mass per erythrocyte) 33 pg 25-34 Automated erythrocyte mean corpuscular hemoglobin concentration measurement ( mass/volume) 33 g/dL 32-36 Automated erythrocyte distribution width ratio 13.2 % 10.0-14.5 Automated blood platelet count (count/volume) 177 10*3/uL 130-400 Automated blood platelet mean volume measurement 11.1 [foz_ us] 7.4-10.4 Automated blood neutrophils/100 leukocytes 90 % 42-75 Automated blood lymphocytes/100 leukocytes 5 % 12-44 Blood monocytes/100 leukocytes 5 % 0-12 Automated blood eosinophils/100 leukocytes 0 % 0-10 Automated blood basophils/100 leukocytes 0 % 0-10 Blood neutrophils automated count (number/volume) 11.5 10*3 1.8-7.8 Blood lymphocytes automated count (number/volume) 0.7 10*3 1.0-4.0 Blood monocytes automated count (number/volume) 0.6 10*3 0.0-1.0 Automated eosinophil count 0.0 10*3/uL 0.0-0.3 Automated blood basophil count (count/volume) 0.0 10*3/uL 0.0-0.1 PT panel in platelet poor plasma by coagulation assay - 04/16/16 09:13 Prothrombin time (PT) in platelet poor plasma by coagulation assay 12.6 s 12.2-14.7 INR in platelet poor plasma or blood by coagulation assay 1.0 0.8-1.4 Activated partial thromboplastin time (aPTT) in platelet poor plasma bycoagulation assay - 04/16/16 09:13 Activated partial thromboplastin time (aPTT) in platelet poor plasma bycoagulation assay 27 s 24-35 Blood lactic acid measurement (moles/volume) - 04/16/16 09:13 Blood lactic acid measurement (moles/volume) 1.6 mmol/L 0.5-2.0 Comprehensive metabolic panel - 04/16/16 09:13 Serum or plasma sodium measurement (moles/volume) 143 mmol/ L 135-145 Serum or plasma potassium measurement (moles/volume) 3.3 mmol/L 3.6-5.0 Serum or plasma chloride measurement (moles/volume) 100 mmol /L 98-107 Carbon dioxide 31 mmol/L 21-32 Serum or plasma anion gap determination (moles/volume) 12 mmol/L 5-14 Serum or plasma urea nitrogen measurement (mass/volume) 9 mg /dL 7-18 Serum or plasma creatinine measurement (mass/volume) 1.16 mg /dL 0.60-1.30 Serum or plasma urea nitrogen/creatinine mass ratio 8 NRG Serum or plasma creatinine measurement with calculation of estimated glomerular filtration rate > NRG Serum or plasma glucose measurement (mass/volume) 88 mg/dL 70-105 Serum or plasma calcium measurement (mass/volume) 9.6 mg/dL 8.5-10.1 Serum or plasma total bilirubin measurement (mass/volume) 0.5 mg/dL 0.1-1.0 Serum or plasma alkaline phosphatase measurement (enzymatic activity/volume) 83 U/L 40-136 Serum or plasma aspartate aminotransferase measurement (enzymatic activity/ volume) 32 U/L 5-34 Serum or plasma alanine aminotransferase measurement (enzymatic activity/volume ) 26 U/L 0-55 Serum or plasma protein measurement (mass/volume) 6.5 g/dL 6.4-8.2 Serum or plasma albumin measurement (mass/volume) 3.9 g/dL 3.2-4.5 Bacterial blood culture - 04/16/16 09:13 Bacterial blood culture NG NRG Sputum Gram stain - 04/16/16 09:25 GRAM STAIN SPUTUM YEAST CELLS OBSERVED NRG Bacterial sputum culture - 04/16/16 09:25 FREE TEXT EXTERNAL MIXED COLONY GROWTH NRG QUANTITY OF GROWTH Scant Growth NRG Bacterial sputum culture [id number] NR Complete urinalysis with reflex to culture - 04/16/16 09:30 Urine color determination YELLOW NRG Urine clarity determination CLEAR NRG Urine pH measurement by test strip 8 5- 9 Specific gravity of urine by test strip 1.010 1.016-1.022 Urine protein assay by test strip, semi-quantitative NEGATIVE NEGATIVE Urine glucose detection by automated test strip NEGATIVE NEGATIVE Erythrocytes detection in urine sediment by light microscopy 1+ NEGATIVE Urine ketones detection by automated test strip NEGATIVE NEGATIVE Urine nitrite detection by test strip NEGATIVE NEGATIVE Urine total bilirubin detection by test strip NEGATIVE NEGATIVE Urine urobilinogen measurement by automated test strip (mass/volume) NORMAL NORMAL Urine leukocyte esterase detection by dipstick NEGATIVE NEGATIVE Automated urine sediment erythrocyte count by microscopy (number/high power field) [HPF] NRG Automated urine sediment leukocyte count by microscopy (number/high power field ) NONE NRG Bacteria detection in urine sediment by light microscopy NEGATIVE NRG Squamous epithelial cells detection in urine sediment by light microscopy RARE NRG Crystals detection in urine sediment by light microscopy NONE NRG Casts detection in urine sediment by light microscopy NONE NRG Mucus detection in urine sediment by light microscopy NEGATIVE NRG Complete urinalysis with reflex to culture NO NRG Bacterial blood culture - 04/16/16 09:31 FREE TEXT EXTERNAL SENSITIVITY REPORTED 04/18/16 7:20 NRG QUANTITY OF GROWTH Isolated NRG Bacterial blood culture [id number] [facility] Bacterial susceptibility panel - 04/16/16 09:31 Oxacillin susceptibility test by minimum inhibitory concentration <= NRG Gentamicin susceptibility test by minimum inhibitory concentration <= NRG Clindamycin susceptibility test by minimum inhibitory concentration <= NRG Erythromycin susceptibility test by minimum inhibitory concentration <= NRG Trimethoprim/sulfamethoxazole susceptibility test by minimum inhibitoryconcentration <= NRG Vancomycin susceptibility test by minimum inhibitory concentration <= NRG Levofloxacin susceptibility test by minimum inhibitory concentration <= NRG Rifampin susceptibility test by minimum inhibitory concentration <= NRG Tetracycline susceptibility test by minimum inhibitory concentration <= NRG Complete blood count (CBC) with automated white blood cell (WBC) differential - 04/17/16 06:50 Blood leukocytes automated count (number/volume) 8.2 10*3/ uL 4.3-11.0 Blood erythrocytes automated count (number/volume) 3.11 10*6 /uL 4.35-5.85 Venous blood hemoglobin measurement (mass/volume) 10.3 g/dL 13.3-17.7 Blood hematocrit (volume fraction) 31 % 40-54 Automated erythrocyte mean corpuscular volume 101 [foz_us] 80-99 Automated erythrocyte mean corpuscular hemoglobin (mass per erythrocyte) 33 pg 25-34 Automated erythrocyte mean corpuscular hemoglobin concentration measurement ( mass/volume) 33 g/dL 32-36 Automated erythrocyte distribution width ratio 12.9 % 10.0-14.5 Automated blood platelet count (count/volume) 140 10*3/uL 130-400 Automated blood platelet mean volume measurement 10.6 [foz_ us] 7.4-10.4 Automated blood neutrophils/100 leukocytes 84 % 42-75 Automated blood lymphocytes/100 leukocytes 8 % 12-44 Blood monocytes/100 leukocytes 8 % 0-12 Automated blood eosinophils/100 leukocytes 0 % 0-10 Automated blood basophils/100 leukocytes 0 % 0-10 Blood neutrophils automated count (number/volume) 6.9 10*3 1.8-7.8 Blood lymphocytes automated count (number/volume) 0.6 10*3 1.0-4.0 Blood monocytes automated count (number/volume) 0.6 10*3 0.0-1.0 Automated eosinophil count 0.0 10*3/uL 0.0-0.3 Automated blood basophil count (count/volume) 0.0 10*3/uL 0.0-0.1 Comprehensive metabolic panel - 04/17/16 06:50 Serum or plasma sodium measurement (moles/volume) 142 mmol/ L 135-145 Serum or plasma potassium measurement (moles/volume) 3.3 mmol/L 3.6-5.0 Serum or plasma chloride measurement (moles/volume) 107 mmol /L 98-107 Carbon dioxide 26 mmol/L 21-32 Serum or plasma anion gap determination (moles/volume) 9 mmol/L 5-14 Serum or plasma urea nitrogen measurement (mass/volume) 9 mg /dL 7-18 Serum or plasma creatinine measurement (mass/volume) 0.90 mg /dL 0.60-1.30 Serum or plasma urea nitrogen/creatinine mass ratio 10 NRG Serum or plasma creatinine measurement with calculation of estimated glomerular filtration rate > NRG Serum or plasma glucose measurement (mass/volume) 104 mg/dL 70-105 Serum or plasma calcium measurement (mass/volume) 8.9 mg/dL 8.5-10.1 Serum or plasma total bilirubin measurement (mass/volume) 0.7 mg/dL 0.1-1.0 Serum or plasma alkaline phosphatase measurement (enzymatic activity/volume) 60 U/L 40-136 Serum or plasma aspartate aminotransferase measurement (enzymatic activity/ volume) 20 U/L 5-34 Serum or plasma alanine aminotransferase measurement (enzymatic activity/volume ) 20 U/L 0-55 Serum or plasma protein measurement (mass/volume) 5.1 g/dL 6.4-8.2 Serum or plasma albumin measurement (mass/volume) 3.1 g/dL 3.2-4.5 Magnesium - 04/17/16 06:50 Magnesium 1.7 mg/dL 1.8-2.4 Complete blood count (CBC) with automated white blood cell (WBC) differential - 04/17/16 10:30 Blood leukocytes automated count (number/volume) 8.0 10*3/ uL 4.3-11.0 Blood erythrocytes automated count (number/volume) 3.03 10*6 /uL 4.35-5.85 Venous blood hemoglobin measurement (mass/volume) 10.0 g/dL 13.3-17.7 Blood hematocrit (volume fraction) 30 % 40-54 Automated erythrocyte mean corpuscular volume 100 [foz_us] 80-99 Automated erythrocyte mean corpuscular hemoglobin (mass per erythrocyte) 33 pg 25-34 Automated erythrocyte mean corpuscular hemoglobin concentration measurement ( mass/volume) 33 g/dL 32-36 Automated erythrocyte distribution width ratio 12.8 % 10.0-14.5 Automated blood platelet count (count/volume) 136 10*3/uL 130-400 Automated blood platelet mean volume measurement 10.5 [foz_ us] 7.4-10.4 Automated blood neutrophils/100 leukocytes 84 % 42-75 Automated blood lymphocytes/100 leukocytes 8 % 12-44 Blood monocytes/100 leukocytes 8 % 0-12 Automated blood eosinophils/100 leukocytes 0 % 0-10 Automated blood basophils/100 leukocytes 0 % 0-10 Blood neutrophils automated count (number/volume) 6.8 10*3 1.8-7.8 Blood lymphocytes automated count (number/volume) 0.6 10*3 1.0-4.0 Blood monocytes automated count (number/volume) 0.6 10*3 0.0-1.0 Automated eosinophil count 0.0 10*3/uL 0.0-0.3 Automated blood basophil count (count/volume) 0.0 10*3/uL 0.0-0.1 Vancomycin trough - 04/17/16 10:30 Vancomycin trough 15.4 ug/mL 10.0-20.0 Complete blood count (CBC) with automated white blood cell (WBC) differential - 04/18/16 05:15 Blood leukocytes automated count (number/volume) 4.7 10*3/ uL 4.3-11.0 Blood erythrocytes automated count (number/volume) 2.81 10*6 /uL 4.35-5.85 Venous blood hemoglobin measurement (mass/volume) 9.4 g/dL 13.3-17.7 Blood hematocrit (volume fraction) 28 % 40-54 Automated erythrocyte mean corpuscular volume 99 [foz_us] 80-99 Automated erythrocyte mean corpuscular hemoglobin (mass per erythrocyte) 34 pg 25-34 Automated erythrocyte mean corpuscular hemoglobin concentration measurement ( mass/volume) 34 g/dL 32-36 Automated erythrocyte distribution width ratio 12.6 % 10.0-14.5 Automated blood platelet count (count/volume) 129 10*3/uL 130-400 Automated blood platelet mean volume measurement 10.7 [foz_ us] 7.4-10.4 Automated blood neutrophils/100 leukocytes 74 % 42-75 Automated blood lymphocytes/100 leukocytes 15 % 12-44 Blood monocytes/100 leukocytes 11 % 0-12 Automated blood eosinophils/100 leukocytes 1 % 0-10 Automated blood basophils/100 leukocytes 0 % 0-10 Blood neutrophils automated count (number/volume) 3.4 10*3 1.8-7.8 Blood lymphocytes automated count (number/volume) 0.7 10*3 1.0-4.0 Blood monocytes automated count (number/volume) 0.5 10*3 0.0-1.0 Automated eosinophil count 0.0 10*3/uL 0.0-0.3 Automated blood basophil count (count/volume) 0.0 10*3/uL 0.0-0.1 Whole blood basic metabolic panel - 04/18/16 05:15 Serum or plasma sodium measurement (moles/volume) 142 mmol/ L 135-145 Serum or plasma potassium measurement (moles/volume) 3.1 mmol/L 3.6-5.0 Serum or plasma chloride measurement (moles/volume) 107 mmol /L 98-107 Carbon dioxide 25 mmol/L 21-32 Serum or plasma anion gap determination (moles/volume) 10 mmol/L 5-14 Serum or plasma urea nitrogen measurement (mass/volume) 7 mg /dL 7-18 Serum or plasma creatinine measurement (mass/volume) 0.90 mg /dL 0.60-1.30 Serum or plasma urea nitrogen/creatinine mass ratio 8 NRG Serum or plasma creatinine measurement with calculation of estimated glomerular filtration rate > NRG Serum or plasma glucose measurement (mass/volume) 92 mg/dL 70-105 Serum or plasma calcium measurement (mass/volume) 8.4 mg/dL 8.5-10.1 Magnesium - 04/18/16 05:15 Magnesium 1.7 mg/dL 1.8-2.4 Whole blood basic metabolic panel - 04/19/16 05:08 Serum or plasma sodium measurement (moles/volume) 142 mmol/ L 135-145 Serum or plasma potassium measurement (moles/volume) 3.2 mmol/L 3.6-5.0 Serum or plasma chloride measurement (moles/volume) 108 mmol /L 98-107 Carbon dioxide 23 mmol/L 21-32 Serum or plasma anion gap determination (moles/volume) 11 mmol/L 5-14 Serum or plasma urea nitrogen measurement (mass/volume) 9 mg /dL 7-18 Serum or plasma creatinine measurement (mass/volume) 0.93 mg /dL 0.60-1.30 Serum or plasma urea nitrogen/creatinine mass ratio 10 NRG Serum or plasma creatinine measurement with calculation of estimated glomerular filtration rate > NRG Serum or plasma glucose measurement (mass/volume) 102 mg/dL 70-105 Serum or plasma calcium measurement (mass/volume) 9.4 mg/dL 8.5-10.1 Complete blood count (CBC) with automated white blood cell (WBC) differential - 04/19/16 05:08 Blood leukocytes automated count (number/volume) 5.5 10*3/ uL 4.3-11.0 Blood erythrocytes automated count (number/volume) 3.23 10*6 /uL 4.35-5.85 Venous blood hemoglobin measurement (mass/volume) 10.6 g/dL 13.3-17.7 Blood hematocrit (volume fraction) 32 % 40-54 Automated erythrocyte mean corpuscular volume 99 [foz_us] 80-99 Automated erythrocyte mean corpuscular hemoglobin (mass per erythrocyte) 33 pg 25-34 Automated erythrocyte mean corpuscular hemoglobin concentration measurement ( mass/volume) 33 g/dL 32-36 Automated erythrocyte distribution width ratio 12.6 % 10.0-14.5 Automated blood platelet count (count/volume) 145 10*3/uL 130-400 Automated blood platelet mean volume measurement 10.8 [foz_ us] 7.4-10.4 Automated blood neutrophils/100 leukocytes 83 % 42-75 Automated blood lymphocytes/100 leukocytes 9 % 12-44 Blood monocytes/100 leukocytes 7 % 0-12 Automated blood eosinophils/100 leukocytes 1 % 0-10 Automated blood basophils/100 leukocytes 0 % 0-10 Blood neutrophils automated count (number/volume) 4.5 10*3 1.8-7.8 Blood lymphocytes automated count (number/volume) 0.5 10*3 1.0-4.0 Blood monocytes automated count (number/volume) 0.4 10*3 0.0-1.0 Automated eosinophil count 0.1 10*3/uL 0.0-0.3 Automated blood basophil count (count/volume) 0.0 10*3/uL 0.0-0.1 Complete blood count (CBC) with automated white blood cell (WBC) differential - 04/20/16 04:55 Blood leukocytes automated count (number/volume) 3.4 10*3/ uL 4.3-11.0 Blood erythrocytes automated count (number/volume) 2.89 10*6 /uL 4.35-5.85 Venous blood hemoglobin measurement (mass/volume) 9.5 g/dL 13.3-17.7 Blood hematocrit (volume fraction) 29 % 40-54 Automated erythrocyte mean corpuscular volume 99 [foz_us] 80-99 Automated erythrocyte mean corpuscular hemoglobin (mass per erythrocyte) 33 pg 25-34 Automated erythrocyte mean corpuscular hemoglobin concentration measurement ( mass/volume) 33 g/dL 32-36 Automated erythrocyte distribution width ratio 12.5 % 10.0-14.5 Automated blood platelet count (count/volume) 128 10*3/uL 130-400 Automated blood platelet mean volume measurement 11.2 [foz_ us] 7.4-10.4 Automated blood neutrophils/100 leukocytes 66 % 42-75 Automated blood lymphocytes/100 leukocytes 21 % 12-44 Blood monocytes/100 leukocytes 10 % 0-12 Automated blood eosinophils/100 leukocytes 2 % 0-10 Automated blood basophils/100 leukocytes 1 % 0-10 Blood neutrophils automated count (number/volume) 2.2 10*3 1.8-7.8 Blood lymphocytes automated count (number/volume) 0.7 10*3 1.0-4.0 Blood monocytes automated count (number/volume) 0.3 10*3 0.0-1.0 Automated eosinophil count 0.1 10*3/uL 0.0-0.3 Automated blood basophil count (count/volume) 0.0 10*3/uL 0.0-0.1 Whole blood basic metabolic panel - 04/20/16 04:55 Serum or plasma sodium measurement (moles/volume) 143 mmol/ L 135-145 Serum or plasma potassium measurement (moles/volume) 3.0 mmol/L 3.6-5.0 Serum or plasma chloride measurement (moles/volume) 110 mmol /L 98-107 Carbon dioxide 23 mmol/L 21-32 Serum or plasma anion gap determination (moles/volume) 10 mmol/L 5-14 Serum or plasma urea nitrogen measurement (mass/volume) 7 mg /dL 7-18 Serum or plasma creatinine measurement (mass/volume) 0.88 mg /dL 0.60-1.30 Serum or plasma urea nitrogen/creatinine mass ratio 8 NRG Serum or plasma creatinine measurement with calculation of estimated glomerular filtration rate > NRG Serum or plasma glucose measurement (mass/volume) 93 mg/dL 70-105 Serum or plasma calcium measurement (mass/volume) 8.7 mg/dL 8.5-10.1 Magnesium - 04/20/16 04:55 Magnesium 1.4 mg/dL 1.8-2.4 Whole blood basic metabolic panel - 04/21/16 06:15 Serum or plasma sodium measurement (moles/volume) 143 mmol/ L 135-145 Serum or plasma potassium measurement (moles/volume) 3.1 mmol/L 3.6-5.0 Serum or plasma chloride measurement (moles/volume) 109 mmol /L 98-107 Carbon dioxide 25 mmol/L 21-32 Serum or plasma anion gap determination (moles/volume) 9 mmol/L 5-14 Serum or plasma urea nitrogen measurement (mass/volume) 8 mg /dL 7-18 Serum or plasma creatinine measurement (mass/volume) 0.95 mg /dL 0.60-1.30 Serum or plasma urea nitrogen/creatinine mass ratio 8 NRG Serum or plasma creatinine measurement with calculation of estimated glomerular filtration rate > NRG Serum or plasma glucose measurement (mass/volume) 93 mg/dL 70-105 Serum or plasma calcium measurement (mass/volume) 8.6 mg/dL 8.5-10.1 Magnesium - 04/21/16 06:15 Magnesium 1.6 mg/dL 1.8-2.4 Complete blood count (CBC) with automated white blood cell (WBC) differential - 04/21/16 06:15 Blood leukocytes automated count (number/volume) 4.7 10*3/ uL 4.3-11.0 Blood erythrocytes automated count (number/volume) 2.88 10*6 /uL 4.35-5.85 Venous blood hemoglobin measurement (mass/volume) 9.4 g/dL 13.3-17.7 Blood hematocrit (volume fraction) 28 % 40-54 Automated erythrocyte mean corpuscular volume 99 [foz_us] 80-99 Automated erythrocyte mean corpuscular hemoglobin (mass per erythrocyte) 33 pg 25-34 Automated erythrocyte mean corpuscular hemoglobin concentration measurement ( mass/volume) 33 g/dL 32-36 Automated erythrocyte distribution width ratio 12.4 % 10.0-14.5 Automated blood platelet count (count/volume) 139 10*3/uL 130-400 Automated blood platelet mean volume measurement 10.8 [foz_ us] 7.4-10.4 Automated blood neutrophils/100 leukocytes 73 % 42-75 Automated blood lymphocytes/100 leukocytes 15 % 12-44 Blood monocytes/100 leukocytes 10 % 0-12 Automated blood eosinophils/100 leukocytes 2 % 0-10 Automated blood basophils/100 leukocytes 0 % 0-10 Blood neutrophils automated count (number/volume) 3.4 10*3 1.8-7.8 Blood lymphocytes automated count (number/volume) 0.7 10*3 1.0-4.0 Blood monocytes automated count (number/volume) 0.5 10*3 0.0-1.0 Automated eosinophil count 0.1 10*3/uL 0.0-0.3 Automated blood basophil count (count/volume) 0.0 10*3/uL 0.0-0.1 Complete blood count (CBC) with automated white blood cell (WBC) differential - 04/28/16 19:35 Blood leukocytes automated count (number/volume) 4.2 10*3/ uL 4.3-11.0 Blood erythrocytes automated count (number/volume) 3.22 10*6 /uL 4.35-5.85 Venous blood hemoglobin measurement (mass/volume) 10.4 g/dL 13.3-17.7 Blood hematocrit (volume fraction) 31 % 40-54 Automated erythrocyte mean corpuscular volume 96 [foz_us] 80-99 Automated erythrocyte mean corpuscular hemoglobin (mass per erythrocyte) 32 pg 25-34 Automated erythrocyte mean corpuscular hemoglobin concentration measurement ( mass/volume) 34 g/dL 32-36 Automated erythrocyte distribution width ratio 12.2 % 10.0-14.5 Automated blood platelet count (count/volume) 207 10*3/uL 130-400 Automated blood platelet mean volume measurement 10.5 [foz_ us] 7.4-10.4 Automated blood neutrophils/100 leukocytes 68 % 42-75 Automated blood lymphocytes/100 leukocytes 19 % 12-44 Blood monocytes/100 leukocytes 8 % 0-12 Automated blood eosinophils/100 leukocytes 5 % 0-10 Automated blood basophils/100 leukocytes 1 % 0-10 Blood neutrophils automated count (number/volume) 2.9 10*3 1.8-7.8 Blood lymphocytes automated count (number/volume) 0.8 10*3 1.0-4.0 Blood monocytes automated count (number/volume) 0.3 10*3 0.0-1.0 Automated eosinophil count 0.2 10*3/uL 0.0-0.3 Automated blood basophil count (count/volume) 0.0 10*3/uL 0.0-0.1 Blood lactic acid measurement (moles/volume) - 04/28/16 19:35 Blood lactic acid measurement (moles/volume) 0.7 mmol/L 0.5-2.0 Comprehensive metabolic panel - 04/28/16 19:35 Serum or plasma sodium measurement (moles/volume) 141 mmol/ L 135-145 Serum or plasma potassium measurement (moles/volume) 2.8 mmol/L 3.6-5.0 Serum or plasma chloride measurement (moles/volume) 103 mmol /L 98-107 Carbon dioxide 29 mmol/L 21-32 Serum or plasma anion gap determination (moles/volume) 9 mmol/L 5-14 Serum or plasma urea nitrogen measurement (mass/volume) 7 mg /dL 7-18 Serum or plasma creatinine measurement (mass/volume) 0.85 mg /dL 0.60-1.30 Serum or plasma urea nitrogen/creatinine mass ratio 8 NRG Serum or plasma creatinine measurement with calculation of estimated glomerular filtration rate > NRG Serum or plasma glucose measurement (mass/volume) 98 mg/dL 70-105 Serum or plasma calcium measurement (mass/volume) 8.9 mg/dL 8.5-10.1 Serum or plasma total bilirubin measurement (mass/volume) 0.5 mg/dL 0.1-1.0 Serum or plasma alkaline phosphatase measurement (enzymatic activity/volume) 82 U/L 40-136 Serum or plasma aspartate aminotransferase measurement (enzymatic activity/ volume) 21 U/L 5-34 Serum or plasma alanine aminotransferase measurement (enzymatic activity/volume ) 16 U/L 0-55 Serum or plasma protein measurement (mass/volume) 5.4 g/dL 6.4-8.2 Serum or plasma albumin measurement (mass/volume) 3.2 g/dL 3.2-4.5 Serum or plasma C reactive protein measurement (mass/volume) - 04/28/16 19:35 Serum or plasma C reactive protein measurement (mass/volume) 3.59 mg/dL 0.00-0.50 Serum or plasma lithium measurement (moles/volume) - 04/28/16 19:35 BNP level 230.8 pg/mL <100.0 Bacterial blood culture - 04/28/16 19:35 Bacterial blood culture NG NRG Bacterial blood culture - 04/28/16 20:03 Bacterial blood culture NG NRG Complete urinalysis with reflex to culture - 04/28/16 23:30 Urine color determination YELLOW NRG Urine clarity determination CLEAR NRG Urine pH measurement by test strip 8 5- 9 Specific gravity of urine by test strip 1.015 1.016-1.022 Urine protein assay by test strip, semi-quantitative NEGATIVE NEGATIVE Urine glucose detection by automated test strip NEGATIVE NEGATIVE Erythrocytes detection in urine sediment by light microscopy 2+ NEGATIVE Urine ketones detection by automated test strip NEGATIVE NEGATIVE Urine nitrite detection by test strip NEGATIVE NEGATIVE Urine total bilirubin detection by test strip NEGATIVE NEGATIVE Urine urobilinogen measurement by automated test strip (mass/volume) NORMAL NORMAL Urine leukocyte esterase detection by dipstick NEGATIVE NEGATIVE Automated urine sediment erythrocyte count by microscopy (number/high power field) NONE NRG Automated urine sediment leukocyte count by microscopy (number/high power field ) NONE NRG Bacteria detection in urine sediment by light microscopy NEGATIVE NRG Squamous epithelial cells detection in urine sediment by light microscopy RARE NRG Crystals detection in urine sediment by light microscopy NONE NRG Casts detection in urine sediment by light microscopy NONE NRG Mucus detection in urine sediment by light microscopy NEGATIVE NRG Complete urinalysis with reflex to culture NO NRG Complete blood count (CBC) with automated white blood cell (WBC) differential - 04/29/16 05:11 Blood leukocytes automated count (number/volume) 3.4 10*3/ uL 4.3-11.0 Blood erythrocytes automated count (number/volume) 3.01 10*6 /uL 4.35-5.85 Venous blood hemoglobin measurement (mass/volume) 9.7 g/dL 13.3-17.7 Blood hematocrit (volume fraction) 29 % 40-54 Automated erythrocyte mean corpuscular volume 96 [foz_us] 80-99 Automated erythrocyte mean corpuscular hemoglobin (mass per erythrocyte) 32 pg 25-34 Automated erythrocyte mean corpuscular hemoglobin concentration measurement ( mass/volume) 34 g/dL 32-36 Automated erythrocyte distribution width ratio 12.1 % 10.0-14.5 Automated blood platelet count (count/volume) 190 10*3/uL 130-400 Automated blood platelet mean volume measurement 10.5 [foz_ us] 7.4-10.4 Automated blood neutrophils/100 leukocytes 61 % 42-75 Automated blood lymphocytes/100 leukocytes 23 % 12-44 Blood monocytes/100 leukocytes 12 % 0-12 Automated blood eosinophils/100 leukocytes 4 % 0-10 Automated blood basophils/100 leukocytes 1 % 0-10 Blood neutrophils automated count (number/volume) 2.1 10*3 1.8-7.8 Blood lymphocytes automated count (number/volume) 0.8 10*3 1.0-4.0 Blood monocytes automated count (number/volume) 0.4 10*3 0.0-1.0 Automated eosinophil count 0.2 10*3/uL 0.0-0.3 Automated blood basophil count (count/volume) 0.0 10*3/uL 0.0-0.1 Whole blood basic metabolic panel - 04/29/16 05:11 Serum or plasma sodium measurement (moles/volume) 141 mmol/ L 135-145 Serum or plasma potassium measurement (moles/volume) 3.1 mmol/L 3.6-5.0 Serum or plasma chloride measurement (moles/volume) 104 mmol /L 98-107 Carbon dioxide 28 mmol/L 21-32 Serum or plasma anion gap determination (moles/volume) 9 mmol/L 5-14 Serum or plasma urea nitrogen measurement (mass/volume) 7 mg /dL 7-18 Serum or plasma creatinine measurement (mass/volume) 0.80 mg /dL 0.60-1.30 Serum or plasma urea nitrogen/creatinine mass ratio 9 NRG Serum or plasma creatinine measurement with calculation of estimated glomerular filtration rate > NRG Serum or plasma glucose measurement (mass/volume) 90 mg/dL 70-105 Serum or plasma calcium measurement (mass/volume) 8.6 mg/dL 8.5-10.1 Magnesium - 05/29/16 13:27 Magnesium 1.9 mg/dL 1.8-2.4 Encounters ACCT No. Visit Date/Time Discharge Status Pt. Type Provider Facility Loc./Unit Complaint [id number] 10/05/2012 15:52:00 10/05/2012 23: 59:59 [facility] Outpatient [id number] 08/26/2012 10:00:00 08/26/2012 23: 59:59 [facility] Outpatient
--- NOTE | 2016-10-23 14:42 | Diagnostic Imaging Report ---
PROCEDURE: CT chest, abdomen, and pelvis with contrast. TECHNIQUE: Multiple contiguous axial images were obtained through the chest, abdomen, and pelvis after the administration of intravenous contrast. INDICATION: Multiple lung nodules. COMPARISON: Study compared to 07/09/2016. FINDINGS: Chest: Solid and sub-solid irregular opacity in the left lower lobe is unchanged in size, morphology, and density from prior and measures 4.2 x 2.1 cm. This may reflect an area of chronic scarring and partial atelectasis. No new focal pulmonary abnormality. Tiny left pleural effusion adjacent has nearly completely resolved. There is no hilar or mediastinal lymphadenopathy. Some chronic benign calcified pleural plaques in the left hemithorax are stable. Abdomen and pelvis: There is no adrenal mass. The liver is stable and negative. There is no biliary dilatation. The spleen size is within normal limits. The unobstructed kidneys are stable with chronic left renal atrophy unchanged. No mesenteric or retroperitoneal adenopathy. The pancreas is normal. There is no bowel, biliary, or urinary tract obstruction. There is no ascites. No acute or suspicious osseous abnormality. Intramuscular lipoma in the left gluteus is chronic and benign. There is postoperative change to the lower lumbar spine. IMPRESSION: Chest: Dominant parenchymal opacity in the left lower lobe is identical in appearance to prior with reduction in adjacent pleural effusion. Additional paracardiac nodularity noted previously no longer identified. Benign calcified pleural plaque is stable. No adverse development. Abdomen and pelvis: No findings of abdominal or pelvic involvement by neoplasm or acute pathology. Dictated by: Dictated on workstation # [id number]
== END ==
LOC: RAD 08:50
PROVIDERS: ATTEND Internal Medicine Hematology & Oncology
DX: C34.32 Malignant neoplasm of lower lobe, left bronchus or lung (principal); J98.4 Other disorders of lung; Z72.0 Tobacco use
CPT/HCPCS: 71260; 74177

== ENCOUNTER 2016-12-11 10:16 | Outpatient (RCR) | payer MEDICARE, OTHER ==
[2016-09-18 10:58] LABS: BASOPHILS # (AUTO) 0.1 10^3/uL (0.0-0.1); BASOPHILS % (AUTO) 1 % (0-10); EOSINOPHILS # (AUTO) 0.4 10^3/uL (0.0-0.3); EOSINOPHILS % (AUTO) 9 % (0-10); LYMPHOCYTES # (AUTO) 1.4 X 10^3 (1.0-4.0); LYMPHOCYTES % (AUTO) 31 % (12-44); MEAN CORPUSCULAR HEMOGLOBIN 31 PG (25-34); MEAN CORPUSCULAR HGB CONC 34 G/DL (32-36); MEAN CORPUSCULAR VOLUME 92 FL (80-99); MEAN PLATELET VOLUME 10.2 FL (7.4-10.4); MONOCYTES # (AUTO) 0.4 X 10^3 (0.0-1.0); MONOCYTES % (AUTO) 9 % (0-12); NEUTROPHILS # (AUTO) 2.3 X 10^3 (1.8-7.8); NEUTROPHILS % (AUTO) 50 % (42-75); PLATELET COUNT 198 10^3/uL (130-400); RED BLOOD COUNT 4.23 10^6/uL (4.35-5.85); RED CELL DISTRIBUTION WIDTH 13.2 % (10.0-14.5); WHITE BLOOD COUNT 4.5 10^3/uL (4.3-11.0)
[2016-09-18 12:04] LABS: CREATININE SERUM 1.28 MG/DL (0.60-1.30); POTASSIUM 3.7 MMOL/L (3.6-5.0)
[2016-09-26 10:51] LABS: BASOPHILS # (AUTO) 0.1 10^3/uL (0.0-0.1); BASOPHILS % (AUTO) 1 % (0-10); EOSINOPHILS # (AUTO) 0.5 10^3/uL (0.0-0.3); EOSINOPHILS % (AUTO) 8 % (0-10); LYMPHOCYTES # (AUTO) 1.5 X 10^3 (1.0-4.0); LYMPHOCYTES % (AUTO) 27 % (12-44); MEAN CORPUSCULAR HEMOGLOBIN 31 PG (25-34); MEAN CORPUSCULAR HGB CONC 34 G/DL (32-36); MEAN CORPUSCULAR VOLUME 93 FL (80-99); MEAN PLATELET VOLUME 9.9 FL (7.4-10.4); MONOCYTES # (AUTO) 0.4 X 10^3 (0.0-1.0); MONOCYTES % (AUTO) 7 % (0-12); NEUTROPHILS # (AUTO) 3.2 X 10^3 (1.8-7.8); NEUTROPHILS % (AUTO) 57 % (42-75); PLATELET COUNT 213 10^3/uL (130-400); RED BLOOD COUNT 4.27 10^6/uL (4.35-5.85); RED CELL DISTRIBUTION WIDTH 12.9 % (10.0-14.5); WHITE BLOOD COUNT 5.6 10^3/uL (4.3-11.0)
[2016-09-26 11:25] LABS: CALCIUM 8.9 MG/DL (8.5-10.1); CREATININE SERUM 1.22 MG/DL (0.60-1.30); POTASSIUM 4.1 MMOL/L (3.6-5.0)
[2016-10-02 10:32] LABS: BASOPHILS # (AUTO) 0.1 10^3/uL (0.0-0.1); BASOPHILS % (AUTO) 1 % (0-10); EOSINOPHILS # (AUTO) 0.8 10^3/uL (0.0-0.3); EOSINOPHILS % (AUTO) 12 % (0-10); LYMPHOCYTES # (AUTO) 1.4 X 10^3 (1.0-4.0); LYMPHOCYTES % (AUTO) 21 % (12-44); MEAN CORPUSCULAR HEMOGLOBIN 31 PG (25-34); MEAN CORPUSCULAR HGB CONC 34 G/DL (32-36); MEAN CORPUSCULAR VOLUME 93 FL (80-99); MEAN PLATELET VOLUME 9.9 FL (7.4-10.4); MONOCYTES # (AUTO) 0.5 X 10^3 (0.0-1.0); MONOCYTES % (AUTO) 7 % (0-12); NEUTROPHILS # (AUTO) 3.9 X 10^3 (1.8-7.8); NEUTROPHILS % (AUTO) 59 % (42-75); PLATELET COUNT 228 10^3/uL (130-400); RED BLOOD COUNT 4.12 10^6/uL (4.35-5.85); RED CELL DISTRIBUTION WIDTH 13.2 % (10.0-14.5); WHITE BLOOD COUNT 6.6 10^3/uL (4.3-11.0)
[2016-10-02 11:04] LABS: ALBUMIN 3.8 G/DL (3.2-4.5); BILIRUBIN,TOTAL 0.3 MG/DL (0.1-1.0); CALCIUM 8.8 MG/DL (8.5-10.1); CREATININE SERUM 1.34 MG/DL (0.60-1.30); MAGNESIUM 1.6 MG/DL (1.8-2.4); POTASSIUM 3.6 MMOL/L (3.6-5.0); TOTAL PROTEIN 6.1 G/DL (6.4-8.2)
[2016-10-02 11:28] LABS: THYROID STIMULATING HORMONE 1.55 UIU/ML (0.35-4.94)
[2016-10-09 13:43] LABS: BASOPHILS % (AUTO) 1 % (0-10); EOSINOPHILS # (AUTO) 0.2 10^3/uL (0.0-0.3); EOSINOPHILS % (AUTO) 3 % (0-10); LYMPHOCYTES # (AUTO) 1.1 X 10^3 (1.0-4.0); LYMPHOCYTES % (AUTO) 19 % (12-44); MEAN CORPUSCULAR HEMOGLOBIN 31 PG (25-34); MEAN CORPUSCULAR HGB CONC 34 G/DL (32-36); MEAN CORPUSCULAR VOLUME 93 FL (80-99); MEAN PLATELET VOLUME 9.6 FL (7.4-10.4); MONOCYTES # (AUTO) 0.4 X 10^3 (0.0-1.0); MONOCYTES % (AUTO) 6 % (0-12); NEUTROPHILS # (AUTO) 4.3 X 10^3 (1.8-7.8); NEUTROPHILS % (AUTO) 71 % (42-75); PLATELET COUNT 247 10^3/uL (130-400); RED BLOOD COUNT 4.56 10^6/uL (4.35-5.85); RED CELL DISTRIBUTION WIDTH 13.1 % (10.0-14.5)
[2016-10-09 14:20] LABS: CALCIUM 9.8 MG/DL (8.5-10.1); CREATININE SERUM 1.2 MG/DL (0.60-1.30)
[2016-10-16 10:12] LABS: BASOPHILS % (AUTO) 0 % (0-10); EOSINOPHILS # (AUTO) 0.7 10^3/uL (0.0-0.3); EOSINOPHILS % (AUTO) 10 % (0-10); LYMPHOCYTES # (AUTO) 1.3 X 10^3 (1.0-4.0); LYMPHOCYTES % (AUTO) 19 % (12-44); MEAN CORPUSCULAR HEMOGLOBIN 32 PG (25-34); MEAN CORPUSCULAR HGB CONC 34 G/DL (32-36); MEAN CORPUSCULAR VOLUME 94 FL (80-99); MONOCYTES # (AUTO) 0.4 X 10^3 (0.0-1.0); MONOCYTES % (AUTO) 6 % (0-12); NEUTROPHILS # (AUTO) 4.3 X 10^3 (1.8-7.8); NEUTROPHILS % (AUTO) 65 % (42-75); PLATELET COUNT 230 10^3/uL (130-400); RED BLOOD COUNT 4.16 10^6/uL (4.35-5.85); RED CELL DISTRIBUTION WIDTH 13.4 % (10.0-14.5); WHITE BLOOD COUNT 6.7 10^3/uL (4.3-11.0)
[2016-10-16 11:01] LABS: ANION GAP 9 MMOL/L (5-14); BLOOD UREA NITROGEN 8 MG/DL (7-18); BUN/CREATININE RATIO 7; CALCIUM 9.1 MG/DL (8.5-10.1); CARBON DIOXIDE 25 MMOL/L (21-32); CHLORIDE 106 MMOL/L (98-107); CREATININE SERUM 1.09 MG/DL (0.60-1.30); GFR ESTIMATED > 60; GLUCOSE 99 MG/DL (70-105); POTASSIUM 3.6 MMOL/L (3.6-5.0); SODIUM 140 MMOL/L (135-145)
[2016-10-23 08:49] LABS: BASOPHILS % (AUTO) 1 % (0-10); EOSINOPHILS # (AUTO) 0.7 10^3/uL (0.0-0.3); EOSINOPHILS % (AUTO) 8 % (0-10); LYMPHOCYTES # (AUTO) 1.6 X 10^3 (1.0-4.0); LYMPHOCYTES % (AUTO) 18 % (12-44); MEAN CORPUSCULAR HEMOGLOBIN 32 PG (25-34); MEAN CORPUSCULAR HGB CONC 34 G/DL (32-36); MEAN CORPUSCULAR VOLUME 95 FL (80-99); MEAN PLATELET VOLUME 9.4 FL (7.4-10.4); MONOCYTES # (AUTO) 0.6 X 10^3 (0.0-1.0); MONOCYTES % (AUTO) 7 % (0-12); NEUTROPHILS # (AUTO) 5.9 X 10^3 (1.8-7.8); NEUTROPHILS % (AUTO) 67 % (42-75); PLATELET COUNT 209 10^3/uL (130-400); RED BLOOD COUNT 4.17 10^6/uL (4.35-5.85); RED CELL DISTRIBUTION WIDTH 13.2 % (10.0-14.5); WHITE BLOOD COUNT 8.8 10^3/uL (4.3-11.0)
[2016-10-23 09:12] LABS: CREATININE SERUM 1.2 MG/DL (0.60-1.30); POTASSIUM 4.3 MMOL/L (3.6-5.0)
[2016-10-30 11:04] LABS: BASOPHILS % (AUTO) 1 % (0-10); EOSINOPHILS # (AUTO) 0.5 10^3/uL (0.0-0.3); EOSINOPHILS % (AUTO) 11 % (0-10); LYMPHOCYTES # (AUTO) 1.3 X 10^3 (1.0-4.0); LYMPHOCYTES % (AUTO) 24 % (12-44); MEAN CORPUSCULAR HEMOGLOBIN 32 PG (25-34); MEAN CORPUSCULAR HGB CONC 34 G/DL (32-36); MEAN CORPUSCULAR VOLUME 93 FL (80-99); MEAN PLATELET VOLUME 9.9 FL (7.4-10.4); MONOCYTES # (AUTO) 0.4 X 10^3 (0.0-1.0); MONOCYTES % (AUTO) 8 % (0-12); NEUTROPHILS # (AUTO) 2.9 X 10^3 (1.8-7.8); NEUTROPHILS % (AUTO) 57 % (42-75); PLATELET COUNT 181 10^3/uL (130-400); RED CELL DISTRIBUTION WIDTH 13.1 % (10.0-14.5); WHITE BLOOD COUNT 5.2 10^3/uL (4.3-11.0)
[2016-10-30 11:30] LABS: ALANINE AMINOTRANSFERASE 11 U/L (0-55); ALBUMIN 3.6 G/DL (3.2-4.5); ANION GAP 7 MMOL/L (5-14); ASPARTATE AMINO TRANSFERASE 13 U/L (5-34); BILIRUBIN,TOTAL 0.5 MG/DL (0.1-1.0); BLOOD UREA NITROGEN 11 MG/DL (7-18); BUN/CREATININE RATIO 10; CALCIUM 9.4 MG/DL (8.5-10.1); CARBON DIOXIDE 26 MMOL/L (21-32); CHLORIDE 106 MMOL/L (98-107); CREATININE SERUM 1.08 MG/DL (0.60-1.30); GFR ESTIMATED > 60; GLUCOSE 108 MG/DL (70-105); MAGNESIUM 1.6 MG/DL (1.8-2.4); POTASSIUM 3.6 MMOL/L (3.6-5.0); SODIUM 139 MMOL/L (135-145); TOTAL PROTEIN 6.2 G/DL (6.4-8.2)
[2016-11-06 11:51] LABS: BASOPHILS # (AUTO) 0.1 10^3/uL (0.0-0.1); BASOPHILS % (AUTO) 1 % (0-10); EOSINOPHILS # (AUTO) 0.9 10^3/uL (0.0-0.3); EOSINOPHILS % (AUTO) 13 % (0-10); LYMPHOCYTES # (AUTO) 1.6 X 10^3 (1.0-4.0); LYMPHOCYTES % (AUTO) 22 % (12-44); MEAN CORPUSCULAR HEMOGLOBIN 32 PG (25-34); MEAN CORPUSCULAR HGB CONC 34 G/DL (32-36); MEAN CORPUSCULAR VOLUME 95 FL (80-99); MEAN PLATELET VOLUME 9.9 FL (7.4-10.4); MONOCYTES # (AUTO) 0.7 X 10^3 (0.0-1.0); MONOCYTES % (AUTO) 10 % (0-12); NEUTROPHILS # (AUTO) 3.9 X 10^3 (1.8-7.8); NEUTROPHILS % (AUTO) 55 % (42-75); PLATELET COUNT 217 10^3/uL (130-400); RED BLOOD COUNT 4.56 10^6/uL (4.35-5.85); RED CELL DISTRIBUTION WIDTH 13.5 % (10.0-14.5); WHITE BLOOD COUNT 7.1 10^3/uL (4.3-11.0)
[2016-11-06 12:23] LABS: CALCIUM 9.2 MG/DL (8.5-10.1); CREATININE SERUM 1.31 MG/DL (0.60-1.30); POTASSIUM 4.4 MMOL/L (3.6-5.0)
[2016-11-13 09:50] LABS: BASOPHILS % (AUTO) 0 % (0-10); EOSINOPHILS # (AUTO) 0.7 10^3/uL (0.0-0.3); EOSINOPHILS % (AUTO) 12 % (0-10); LYMPHOCYTES # (AUTO) 1.3 X 10^3 (1.0-4.0); LYMPHOCYTES % (AUTO) 21 % (12-44); MEAN CORPUSCULAR HEMOGLOBIN 32 PG (25-34); MEAN CORPUSCULAR HGB CONC 34 G/DL (32-36); MEAN CORPUSCULAR VOLUME 94 FL (80-99); MEAN PLATELET VOLUME 9.8 FL (7.4-10.4); MONOCYTES # (AUTO) 0.5 X 10^3 (0.0-1.0); MONOCYTES % (AUTO) 7 % (0-12); NEUTROPHILS # (AUTO) 3.7 X 10^3 (1.8-7.8); NEUTROPHILS % (AUTO) 59 % (42-75); PLATELET COUNT 186 10^3/uL (130-400); WHITE BLOOD COUNT 6.2 10^3/uL (4.3-11.0)
[2016-11-13 10:24] LABS: ANION GAP 7 MMOL/L (5-14); BLOOD UREA NITROGEN 10 MG/DL (7-18); BUN/CREATININE RATIO 9; CALCIUM 8.7 MG/DL (8.5-10.1); CARBON DIOXIDE 27 MMOL/L (21-32); CHLORIDE 106 MMOL/L (98-107); GFR ESTIMATED > 60; GLUCOSE 116 MG/DL (70-105); POTASSIUM 3.6 MMOL/L (3.6-5.0); SODIUM 140 MMOL/L (135-145)
[2016-11-20 12:01] LABS: BASOPHILS # (AUTO) 0.1 10^3/uL (0.0-0.1); BASOPHILS % (AUTO) 1 % (0-10); EOSINOPHILS # (AUTO) 0.9 10^3/uL (0.0-0.3); EOSINOPHILS % (AUTO) 14 % (0-10); LYMPHOCYTES # (AUTO) 1.6 X 10^3 (1.0-4.0); LYMPHOCYTES % (AUTO) 24 % (12-44); MEAN CORPUSCULAR HEMOGLOBIN 32 PG (25-34); MEAN CORPUSCULAR HGB CONC 34 G/DL (32-36); MEAN CORPUSCULAR VOLUME 95 FL (80-99); MEAN PLATELET VOLUME 9.5 FL (7.4-10.4); MONOCYTES # (AUTO) 0.5 X 10^3 (0.0-1.0); MONOCYTES % (AUTO) 8 % (0-12); NEUTROPHILS # (AUTO) 3.5 X 10^3 (1.8-7.8); NEUTROPHILS % (AUTO) 52 % (42-75); PLATELET COUNT 219 10^3/uL (130-400); RED BLOOD COUNT 4.34 10^6/uL (4.35-5.85); RED CELL DISTRIBUTION WIDTH 13.3 % (10.0-14.5); WHITE BLOOD COUNT 6.7 10^3/uL (4.3-11.0)
[2016-11-20 12:36] LABS: ANION GAP 8 MMOL/L (5-14); BLOOD UREA NITROGEN 10 MG/DL (7-18); BUN/CREATININE RATIO 9; CARBON DIOXIDE 28 MMOL/L (21-32); CHLORIDE 106 MMOL/L (98-107); CREATININE SERUM 1.17 MG/DL (0.60-1.30); GFR ESTIMATED > 60; GLUCOSE 69 MG/DL (70-105); POTASSIUM 4.4 MMOL/L (3.6-5.0); SODIUM 142 MMOL/L (135-145)
[2016-11-27 10:17] LABS: BASOPHILS # (AUTO) 0.1 10^3/uL (0.0-0.1); BASOPHILS % (AUTO) 1 % (0-10); EOSINOPHILS # (AUTO) 0.7 10^3/uL (0.0-0.3); EOSINOPHILS % (AUTO) 14 % (0-10); LYMPHOCYTES # (AUTO) 1.4 X 10^3 (1.0-4.0); LYMPHOCYTES % (AUTO) 27 % (12-44); MEAN CORPUSCULAR HEMOGLOBIN 32 PG (25-34); MEAN CORPUSCULAR HGB CONC 34 G/DL (32-36); MEAN CORPUSCULAR VOLUME 95 FL (80-99); MEAN PLATELET VOLUME 9.9 FL (7.4-10.4); MONOCYTES # (AUTO) 0.5 X 10^3 (0.0-1.0); MONOCYTES % (AUTO) 9 % (0-12); NEUTROPHILS # (AUTO) 2.5 X 10^3 (1.8-7.8); NEUTROPHILS % (AUTO) 49 % (42-75); PLATELET COUNT 198 10^3/uL (130-400); RED BLOOD COUNT 4.06 10^6/uL (4.35-5.85); RED CELL DISTRIBUTION WIDTH 13.4 % (10.0-14.5); WHITE BLOOD COUNT 5.1 10^3/uL (4.3-11.0)
[2016-11-27 10:42] LABS: ALANINE AMINOTRANSFERASE 13 U/L (0-55); ALBUMIN 3.6 G/DL (3.2-4.5); ANION GAP 9 MMOL/L (5-14); ASPARTATE AMINO TRANSFERASE 15 U/L (5-34); BILIRUBIN,TOTAL 0.4 MG/DL (0.1-1.0); BLOOD UREA NITROGEN 13 MG/DL (7-18); BUN/CREATININE RATIO 12; CALCIUM 8.9 MG/DL (8.5-10.1); CARBON DIOXIDE 25 MMOL/L (21-32); CHLORIDE 106 MMOL/L (98-107); CREATININE SERUM 1.05 MG/DL (0.60-1.30); GFR ESTIMATED > 60; GLUCOSE 91 MG/DL (70-105); MAGNESIUM 1.8 MG/DL (1.8-2.4); POTASSIUM 4.2 MMOL/L (3.6-5.0); SODIUM 140 MMOL/L (135-145); TOTAL PROTEIN 5.9 G/DL (6.4-8.2)
[2016-11-27 11:04] LABS: THYROID STIMULATING HORMONE 2.47 UIU/ML (0.35-4.94)
[2016-12-04 14:37] LABS: BASOPHILS # (AUTO) 0.1 10^3/uL (0.0-0.1); BASOPHILS % (AUTO) 1 % (0-10); EOSINOPHILS # (AUTO) 0.6 10^3/uL (0.0-0.3); EOSINOPHILS % (AUTO) 11 % (0-10); LYMPHOCYTES # (AUTO) 1.5 X 10^3 (1.0-4.0); LYMPHOCYTES % (AUTO) 28 % (12-44); MEAN CORPUSCULAR HEMOGLOBIN 32 PG (25-34); MEAN CORPUSCULAR HGB CONC 34 G/DL (32-36); MEAN CORPUSCULAR VOLUME 94 FL (80-99); MEAN PLATELET VOLUME 9.9 FL (7.4-10.4); MONOCYTES # (AUTO) 0.4 X 10^3 (0.0-1.0); MONOCYTES % (AUTO) 8 % (0-12); NEUTROPHILS # (AUTO) 2.8 X 10^3 (1.8-7.8); NEUTROPHILS % (AUTO) 53 % (42-75); PLATELET COUNT 215 10^3/uL (130-400); RED BLOOD COUNT 4.46 10^6/uL (4.35-5.85); RED CELL DISTRIBUTION WIDTH 13.6 % (10.0-14.5); WHITE BLOOD COUNT 5.3 10^3/uL (4.3-11.0)
[2016-12-04 15:03] LABS: CREATININE SERUM 1.33 MG/DL (0.60-1.30); POTASSIUM 4.5 MMOL/L (3.6-5.0)
[~2016-12-11] VITALS: Ht 177.8 cm; Wt 89.8 kg
[~2016-12-11 10:16] MED LIST changes: +ACETAMINOPHEN 500 MG TAB (TYLENOL) CANCER CTR PO PRN; -BARIUM SUSPENSION 2.1% (VANILLA SILQ) 450 ML PO ONE; -CATHETER FLUSH 10 ML SYR IV PRN; +FAMOTIDINE 20MG/2ML IV (CANCER CTR) IV SCH; -IOHEXOL 350 MG/ML 100 ML (OMNIPAQUE 350) VIAL IV ONE; +NIVOLUMAB 200 MG, NIVOLUMAB 40 MG in NS (IVPB) CANCER CENTER 50 ML IV SCH; +NIVOLUMAB IV SCH; +NS (IVPB) CANCER CENTER 250 ML ONE; -NS 100 ML (IVPB) BAG IV ONE; +NS IV 500 ML (CANCER CENTER) IV SCH; +NS IV SCH; +diphenhydrAMINE 25 MG TAB (BENADRYL) CANCER CENTER PO SCH
[2016-12-11 10:43] LABS: BASOPHILS # (AUTO) 0.1 10^3/uL (0.0-0.1); BASOPHILS % (AUTO) 1 % (0-10); EOSINOPHILS # (AUTO) 0.8 10^3/uL (0.0-0.3); EOSINOPHILS % (AUTO) 12 % (0-10); LYMPHOCYTES # (AUTO) 1.6 X 10^3 (1.0-4.0); LYMPHOCYTES % (AUTO) 23 % (12-44); MEAN CORPUSCULAR HEMOGLOBIN 32 PG (25-34); MEAN CORPUSCULAR HGB CONC 34 G/DL (32-36); MEAN CORPUSCULAR VOLUME 94 FL (80-99); MONOCYTES # (AUTO) 0.6 X 10^3 (0.0-1.0); MONOCYTES % (AUTO) 8 % (0-12); NEUTROPHILS # (AUTO) 4.1 X 10^3 (1.8-7.8); NEUTROPHILS % (AUTO) 57 % (42-75); PLATELET COUNT 221 10^3/uL (130-400); RED BLOOD COUNT 4.55 10^6/uL (4.35-5.85); RED CELL DISTRIBUTION WIDTH 13.5 % (10.0-14.5); WHITE BLOOD COUNT 7.2 10^3/uL (4.3-11.0)
[2016-12-11 11:01] LABS: ANION GAP 6 MMOL/L (5-14); BLOOD UREA NITROGEN 9 MG/DL (7-18); BUN/CREATININE RATIO 12; CALCIUM 6.5 MG/DL (8.5-10.1); CARBON DIOXIDE 22 MMOL/L (21-32); CHLORIDE 117 MMOL/L (98-107); CREATININE SERUM 0.76 MG/DL (0.60-1.30); GFR ESTIMATED > 60; GLUCOSE 62 MG/DL (70-105); POTASSIUM 2.8 MMOL/L (3.6-5.0); SODIUM 145 MMOL/L (135-145)
== END 2016-12-17 | disposition home or self-care (01) ==
LOC: ONC 10:16
PROVIDERS: ATTEND Internal Medicine Hematology & Oncology
DX: Z51.11 Encounter for antineoplastic chemotherapy (principal); C34.32 Malignant neoplasm of lower lobe, left bronchus or lung; J91.0 Malignant pleural effusion; Z85.46 Personal history of malignant neoplasm of prostate; K59.00 Constipation, unspecified; F17.210 Nicotine dependence, cigarettes, uncomplicated; M48.06 Spinal stenosis, lumbar region; M19.90 Unspecified osteoarthritis, unspecified site; E83.42 Hypomagnesemia; Z79.899 Other long term (current) drug therapy
CPT/HCPCS: 36415; 36591; 80048; 80053; 83735; 84443; 85025; 96375; 96413; 99213

== ENCOUNTER → 2016-12-30 | Outpatient (CLI) | payer MEDICARE ==
[~2016-12-30] MED LIST changes: -ACETAMINOPHEN 500 MG TAB (TYLENOL) CANCER CTR PO PRN; +BARIUM SUSPENSION 2.1% (VANILLA SILQ) 450 ML PO ONE; -FAMOTIDINE 20MG/2ML IV (CANCER CTR) IV SCH; +IOHEXOL 350 MG/ML 100 ML (OMNIPAQUE 350) VIAL IV ONE; -NIVOLUMAB 200 MG, NIVOLUMAB 40 MG in NS (IVPB) CANCER CENTER 50 ML IV SCH; -NIVOLUMAB IV SCH; -NS (IVPB) CANCER CENTER 250 ML ONE; +NS 100 ML (IVPB) BAG IV ONE; -NS IV 500 ML (CANCER CENTER) IV SCH; -NS IV SCH; -diphenhydrAMINE 25 MG TAB (BENADRYL) CANCER CENTER PO SCH
[2016-12-30] MEDS: CATHETER FLUSH 10 ML SYR IV PRN ×2 (12:01→12:17)
--- NOTE | 2016-12-30 13:49 | Diagnostic Imaging Report ---
PROCEDURE: CT chest, abdomen, and pelvis with contrast. TECHNIQUE: Multiple contiguous axial images were obtained through the chest, abdomen, and pelvis after the administration of intravenous contrast. INDICATION: Lung cancer follow-up. COMPARISON: 10/23/2016. FINDINGS: CT chest: Subsegmental opacities in the superior segment of the left lower lobe with linear components appear stable compared to the prior exam of 10/23/2016. This likely represents scarring and is essentially unchanged. There is a tiny left pleural thickening and pleural scarring with no definite change as well. Tiny calcified granulomas in the left lung and along the pleural surfaces are seen anteriorly in the upper and lower left hemithorax. No new consolidation or mass. A subcentimeter calcified granuloma in the right lung base is also seen. The thoracic aorta is normal in caliber. There is normal cardiac size. There is no significant hilar or mediastinal lymphadenopathy. No axillary lymphadenopathy is seen. The osseous structures demonstrate degenerative changes in the lower thoracic spine with vacuum disc phenomenon. No suspicious osseous mass is seen. CT abdomen and pelvis: The liver demonstrates a nonspecific hypodense lesion measuring 5 mm in the inferior aspect of the right hepatic lobe, too small to accurately characterize. The gallbladder, the spleen, the adrenals and the pancreas appear unremarkable. Surgical clips along the gastrohepatic ligament area are seen. Correlate with surgical history. The kidneys have symmetric enhancement and contrast excretion. There is however moderate atrophy of the left kidney. This is stable from prior exams. The abdominal aorta is normal in caliber. No para-aortic significantly enlarged lymph nodes are seen. No significant free fluid or fluid collection in the abdomen or pelvis is noted. The lumbar spine demonstrates post fusion changes involving L3 through L5 levels posteriorly and L4-L5 disc cage placement with evidence of laminectomy around the L5 level. Oral contrast is given opacifying portions of the stomach and small bowel with no definitive abnormality. IMPRESSION: CT chest: Stable mild linear consolidation in the left lower lobe superior segments and thickening in the adjacent left pleura likely related to scarring. No interval change or evidence of tumor recurrence. CT abdomen and pelvis: Nonspecific 5 mm inferior right hepatic lobe hypodense lesion of uncertain significance. No definite evidence of metastasis. Follow-up exam is recommended. Dictated by: Dictated on workstation # [id number]
--- NOTE | 2016-12-30 17:18 | Diagnostic Imaging Report ---
Whole body bone scan. Technique: After the intravenous administration of 26.7 mCi of Technetium 99m MDP, whole body delayed phase bone scan images were obtained with lateral views of the head and neck and the chest regions. Indication: Lung cancer. COMPARISON: 03/21/2016 Findings: There is mild scoliosis and mild associated areas of activity in the spine and other joints compatible with degenerative changes minimally more prominent compared to 2016 exam. There are no suspicious foci of intense increased activity seen particularly in the axial skeleton to suggest metastatic disease. Urinary tract excretion is noted. IMPRESSION: No scintigraphic evidence of osseous metastasis. Dictated by: Dictated on workstation # [id number]
== END ==
LOC: CARD 11:47
PROVIDERS: ATTEND Nurse Practitioner Adult Health
DX: C34.32 Malignant neoplasm of lower lobe, left bronchus or lung (principal)
CPT/HCPCS: 71260; 74177; 78306

== ENCOUNTER 2017-03-11 12:49 | Outpatient (RCR) | payer MEDICARE, OTHER ==
[2016-12-18 12:08] LABS: BASOPHILS # (AUTO) 0.1 10^3/uL (0.0-0.1); BASOPHILS % (AUTO) 1 % (0-10); EOSINOPHILS # (AUTO) 0.9 10^3/uL (0.0-0.3); EOSINOPHILS % (AUTO) 11 % (0-10); LYMPHOCYTES # (AUTO) 1.4 X 10^3 (1.0-4.0); LYMPHOCYTES % (AUTO) 16 % (12-44); MEAN CORPUSCULAR HEMOGLOBIN 32 PG (25-34); MEAN CORPUSCULAR HGB CONC 34 G/DL (32-36); MEAN CORPUSCULAR VOLUME 96 FL (80-99); MEAN PLATELET VOLUME 9.5 FL (7.4-10.4); MONOCYTES # (AUTO) 0.7 X 10^3 (0.0-1.0); MONOCYTES % (AUTO) 8 % (0-12); NEUTROPHILS # (AUTO) 5.8 X 10^3 (1.8-7.8); NEUTROPHILS % (AUTO) 66 % (42-75); PLATELET COUNT 211 10^3/uL (130-400); RED BLOOD COUNT 4.46 10^6/uL (4.35-5.85); RED CELL DISTRIBUTION WIDTH 13.5 % (10.0-14.5); WHITE BLOOD COUNT 8.9 10^3/uL (4.3-11.0)
[2016-12-18 12:43] LABS: CALCIUM 9.1 MG/DL (8.5-10.1); CREATININE SERUM 1.29 MG/DL (0.60-1.30); POTASSIUM 4.4 MMOL/L (3.6-5.0)
[2016-12-24 10:12] LABS: BASOPHILS # (AUTO) 0.1 10^3/uL (0.0-0.1); BASOPHILS % (AUTO) 1 % (0-10); EOSINOPHILS # (AUTO) 0.9 10^3/uL (0.0-0.3); EOSINOPHILS % (AUTO) 17 % (0-10); LYMPHOCYTES # (AUTO) 1.5 X 10^3 (1.0-4.0); LYMPHOCYTES % (AUTO) 29 % (12-44); MEAN CORPUSCULAR HEMOGLOBIN 32 PG (25-34); MEAN CORPUSCULAR HGB CONC 33 G/DL (32-36); MEAN CORPUSCULAR VOLUME 97 FL (80-99); MEAN PLATELET VOLUME 9.6 FL (7.4-10.4); MONOCYTES # (AUTO) 0.4 X 10^3 (0.0-1.0); MONOCYTES % (AUTO) 8 % (0-12); NEUTROPHILS # (AUTO) 2.3 X 10^3 (1.8-7.8); NEUTROPHILS % (AUTO) 45 % (42-75); PLATELET COUNT 205 10^3/uL (130-400); RED BLOOD COUNT 4.09 10^6/uL (4.35-5.85); RED CELL DISTRIBUTION WIDTH 13.2 % (10.0-14.5)
[2016-12-24 10:46] LABS: ALBUMIN 3.7 G/DL (3.2-4.5); BILIRUBIN,TOTAL 0.4 MG/DL (0.1-1.0); CALCIUM 8.7 MG/DL (8.5-10.1); CREATININE SERUM 1.2 MG/DL (0.60-1.30); MAGNESIUM 1.8 MG/DL (1.8-2.4); POTASSIUM 3.9 MMOL/L (3.6-5.0); TOTAL PROTEIN 6.1 G/DL (6.4-8.2)
[2016-12-24 11:08] LABS: THYROID STIMULATING HORMONE 2.7 UIU/ML (0.35-4.94)
[2017-01-02 11:46] LABS: BASOPHILS # (AUTO) 0.1 10^3/uL (0.0-0.1); BASOPHILS % (AUTO) 1 % (0-10); EOSINOPHILS # (AUTO) 0.9 10^3/uL (0.0-0.3); EOSINOPHILS % (AUTO) 10 % (0-10); LYMPHOCYTES # (AUTO) 1.7 X 10^3 (1.0-4.0); LYMPHOCYTES % (AUTO) 20 % (12-44); MEAN CORPUSCULAR HEMOGLOBIN 33 PG (25-34); MEAN CORPUSCULAR HGB CONC 34 G/DL (32-36); MEAN CORPUSCULAR VOLUME 97 FL (80-99); MEAN PLATELET VOLUME 10.5 FL (7.4-10.4); MONOCYTES # (AUTO) 0.5 X 10^3 (0.0-1.0); MONOCYTES % (AUTO) 6 % (0-12); NEUTROPHILS # (AUTO) 5.6 X 10^3 (1.8-7.8); NEUTROPHILS % (AUTO) 64 % (42-75); PLATELET COUNT 237 10^3/uL (130-400); RED BLOOD COUNT 4.49 10^6/uL (4.35-5.85); RED CELL DISTRIBUTION WIDTH 13.1 % (10.0-14.5); WHITE BLOOD COUNT 8.7 10^3/uL (4.3-11.0)
[2017-01-02 12:02] LABS: CALCIUM 9.6 MG/DL (8.5-10.1); CREATININE SERUM 1.2 MG/DL (0.60-1.30); POTASSIUM 4.2 MMOL/L (3.6-5.0)
[2017-01-07 13:01] LABS: BASOPHILS % (AUTO) 1 % (0-10); EOSINOPHILS # (AUTO) 0.7 10^3/uL (0.0-0.3); EOSINOPHILS % (AUTO) 11 % (0-10); LYMPHOCYTES # (AUTO) 1.3 X 10^3 (1.0-4.0); LYMPHOCYTES % (AUTO) 21 % (12-44); MEAN CORPUSCULAR HEMOGLOBIN 33 PG (25-34); MEAN CORPUSCULAR HGB CONC 34 G/DL (32-36); MEAN CORPUSCULAR VOLUME 95 FL (80-99); MONOCYTES # (AUTO) 0.5 X 10^3 (0.0-1.0); MONOCYTES % (AUTO) 8 % (0-12); NEUTROPHILS # (AUTO) 3.8 X 10^3 (1.8-7.8); NEUTROPHILS % (AUTO) 60 % (42-75); PLATELET COUNT 205 10^3/uL (130-400); RED BLOOD COUNT 4.18 10^6/uL (4.35-5.85); WHITE BLOOD COUNT 6.3 10^3/uL (4.3-11.0)
[2017-01-07 13:34] LABS: CALCIUM 9.2 MG/DL (8.5-10.1); CREATININE SERUM 1.21 MG/DL (0.60-1.30); POTASSIUM 3.6 MMOL/L (3.6-5.0)
[2017-01-15 11:16] LABS: BASOPHILS % (AUTO) 0 % (0-10); EOSINOPHILS # (AUTO) 0.5 10^3/uL (0.0-0.3); EOSINOPHILS % (AUTO) 8 % (0-10); LYMPHOCYTES # (AUTO) 1.6 X 10^3 (1.0-4.0); LYMPHOCYTES % (AUTO) 24 % (12-44); MEAN CORPUSCULAR HEMOGLOBIN 32 PG (25-34); MEAN CORPUSCULAR HGB CONC 33 G/DL (32-36); MEAN CORPUSCULAR VOLUME 96 FL (80-99); MEAN PLATELET VOLUME 9.6 FL (7.4-10.4); MONOCYTES # (AUTO) 0.5 X 10^3 (0.0-1.0); MONOCYTES % (AUTO) 7 % (0-12); NEUTROPHILS % (AUTO) 61 % (42-75); PLATELET COUNT 217 10^3/uL (130-400); RED BLOOD COUNT 4.33 10^6/uL (4.35-5.85); RED CELL DISTRIBUTION WIDTH 13.2 % (10.0-14.5); WHITE BLOOD COUNT 6.5 10^3/uL (4.3-11.0)
[2017-01-15 12:13] LABS: CALCIUM 9.6 MG/DL (8.5-10.1); CREATININE SERUM 1.38 MG/DL (0.60-1.30); POTASSIUM 4.2 MMOL/L (3.6-5.0)
[2017-01-21 10:51] LABS: BASOPHILS % (AUTO) 1 % (0-10); EOSINOPHILS # (AUTO) 0.7 10^3/uL (0.0-0.3); EOSINOPHILS % (AUTO) 12 % (0-10); LYMPHOCYTES # (AUTO) 1.1 X 10^3 (1.0-4.0); LYMPHOCYTES % (AUTO) 21 % (12-44); MEAN CORPUSCULAR HEMOGLOBIN 32 PG (25-34); MEAN CORPUSCULAR HGB CONC 34 G/DL (32-36); MEAN CORPUSCULAR VOLUME 97 FL (80-99); MEAN PLATELET VOLUME 10.1 FL (7.4-10.4); MONOCYTES # (AUTO) 0.4 X 10^3 (0.0-1.0); MONOCYTES % (AUTO) 7 % (0-12); NEUTROPHILS # (AUTO) 3.3 X 10^3 (1.8-7.8); NEUTROPHILS % (AUTO) 60 % (42-75); PLATELET COUNT 229 10^3/uL (130-400); RED BLOOD COUNT 4.17 10^6/uL (4.35-5.85); RED CELL DISTRIBUTION WIDTH 13.2 % (10.0-14.5); WHITE BLOOD COUNT 5.6 10^3/uL (4.3-11.0)
[2017-01-21 11:15] LABS: ALANINE AMINOTRANSFERASE 11 U/L (0-55); ALBUMIN 3.6 G/DL (3.2-4.5); ANION GAP 7 MMOL/L (5-14); ASPARTATE AMINO TRANSFERASE 12 U/L (5-34); BILIRUBIN,TOTAL 0.5 MG/DL (0.1-1.0); BLOOD UREA NITROGEN 7 MG/DL (7-18); BUN/CREATININE RATIO 6; CARBON DIOXIDE 28 MMOL/L (21-32); CHLORIDE 105 MMOL/L (98-107); CREATININE SERUM 1.14 MG/DL (0.60-1.30); GFR ESTIMATED > 60; GLUCOSE 106 MG/DL (70-105); MAGNESIUM 1.8 MG/DL (1.8-2.4); POTASSIUM 3.6 MMOL/L (3.6-5.0); SODIUM 140 MMOL/L (135-145); TOTAL PROTEIN 5.9 G/DL (6.4-8.2)
[2017-01-21 11:36] LABS: THYROID STIMULATING HORMONE 3.39 UIU/ML (0.35-4.94)
[2017-01-30 13:26] LABS: BASOPHILS # (AUTO) 0.1 10^3/uL (0.0-0.1); BASOPHILS % (AUTO) 1 % (0-10); EOSINOPHILS # (AUTO) 0.7 10^3/uL (0.0-0.3); EOSINOPHILS % (AUTO) 11 % (0-10); LYMPHOCYTES # (AUTO) 1.5 X 10^3 (1.0-4.0); LYMPHOCYTES % (AUTO) 23 % (12-44); MEAN CORPUSCULAR HEMOGLOBIN 33 PG (25-34); MEAN CORPUSCULAR HGB CONC 34 G/DL (32-36); MEAN CORPUSCULAR VOLUME 96 FL (80-99); MEAN PLATELET VOLUME 9.9 FL (7.4-10.4); MONOCYTES # (AUTO) 0.4 X 10^3 (0.0-1.0); MONOCYTES % (AUTO) 6 % (0-12); NEUTROPHILS # (AUTO) 3.8 X 10^3 (1.8-7.8); NEUTROPHILS % (AUTO) 58 % (42-75); PLATELET COUNT 220 10^3/uL (130-400); RED CELL DISTRIBUTION WIDTH 12.8 % (10.0-14.5); WHITE BLOOD COUNT 6.5 10^3/uL (4.3-11.0)
[2017-01-30 13:44] LABS: CALCIUM 9.6 MG/DL (8.5-10.1); CREATININE SERUM 1.3 MG/DL (0.60-1.30)
[2017-02-04 15:06] LABS: BASOPHILS # (AUTO) 0.1 10^3/uL (0.0-0.1); BASOPHILS % (AUTO) 1 % (0-10); EOSINOPHILS % (AUTO) 19 % (0-10); LYMPHOCYTES # (AUTO) 1.3 X 10^3 (1.0-4.0); LYMPHOCYTES % (AUTO) 25 % (12-44); MEAN CORPUSCULAR HEMOGLOBIN 33 PG (25-34); MEAN CORPUSCULAR HGB CONC 34 G/DL (32-36); MEAN CORPUSCULAR VOLUME 97 FL (80-99); MEAN PLATELET VOLUME 9.8 FL (7.4-10.4); MONOCYTES # (AUTO) 0.4 X 10^3 (0.0-1.0); MONOCYTES % (AUTO) 7 % (0-12); NEUTROPHILS # (AUTO) 2.4 X 10^3 (1.8-7.8); NEUTROPHILS % (AUTO) 48 % (42-75); PLATELET COUNT 206 10^3/uL (130-400); RED BLOOD COUNT 4.05 10^6/uL (4.35-5.85); RED CELL DISTRIBUTION WIDTH 13.2 % (10.0-14.5)
[2017-02-04 15:34] LABS: ALBUMIN 3.7 G/DL (3.2-4.5); BILIRUBIN,TOTAL 0.5 MG/DL (0.1-1.0); CALCIUM 9.1 MG/DL (8.5-10.1); CREATININE SERUM 1.19 MG/DL (0.60-1.30); MAGNESIUM 1.8 MG/DL (1.8-2.4); POTASSIUM 4.3 MMOL/L (3.6-5.0); TOTAL PROTEIN 6.4 G/DL (6.4-8.2)
[2017-02-04 15:54] LABS: THYROID STIMULATING HORMONE 4.19 UIU/ML (0.35-4.94)
[2017-02-10 10:29] LABS: BASOPHILS # (AUTO) 0.1 10^3/uL (0.0-0.1); BASOPHILS % (AUTO) 1 % (0-10); EOSINOPHILS # (AUTO) 1.2 10^3/uL (0.0-0.3); EOSINOPHILS % (AUTO) 14 % (0-10); LYMPHOCYTES # (AUTO) 1.4 X 10^3 (1.0-4.0); LYMPHOCYTES % (AUTO) 17 % (12-44); MEAN CORPUSCULAR HEMOGLOBIN 33 PG (25-34); MEAN CORPUSCULAR HGB CONC 34 G/DL (32-36); MEAN CORPUSCULAR VOLUME 96 FL (80-99); MEAN PLATELET VOLUME 10.6 FL (7.4-10.4); MONOCYTES # (AUTO) 0.5 X 10^3 (0.0-1.0); MONOCYTES % (AUTO) 6 % (0-12); NEUTROPHILS # (AUTO) 5.1 X 10^3 (1.8-7.8); NEUTROPHILS % (AUTO) 62 % (42-75); PLATELET COUNT 176 10^3/uL (130-400); RED BLOOD COUNT 3.89 10^6/uL (4.35-5.85); RED CELL DISTRIBUTION WIDTH 12.5 % (10.0-14.5); WHITE BLOOD COUNT 8.1 10^3/uL (4.3-11.0)
[2017-02-10 10:49] LABS: CALCIUM 9.1 MG/DL (8.5-10.1); CREATININE SERUM 1.29 MG/DL (0.60-1.30); POTASSIUM 3.8 MMOL/L (3.6-5.0)
[2017-02-19 14:13] LABS: BASOPHILS # (AUTO) 0.1 10^3/uL (0.0-0.1); BASOPHILS % (AUTO) 2 % (0-10); EOSINOPHILS # (AUTO) 1.5 10^3/uL (0.0-0.3); EOSINOPHILS % (AUTO) 21 % (0-10); LYMPHOCYTES # (AUTO) 1.6 X 10^3 (1.0-4.0); LYMPHOCYTES % (AUTO) 23 % (12-44); MEAN CORPUSCULAR HEMOGLOBIN 33 PG (25-34); MEAN CORPUSCULAR HGB CONC 34 G/DL (32-36); MEAN CORPUSCULAR VOLUME 96 FL (80-99); MEAN PLATELET VOLUME 10.8 FL (7.4-10.4); MONOCYTES # (AUTO) 0.5 X 10^3 (0.0-1.0); MONOCYTES % (AUTO) 7 % (0-12); NEUTROPHILS # (AUTO) 3.3 X 10^3 (1.8-7.8); NEUTROPHILS % (AUTO) 48 % (42-75); PLATELET COUNT 172 10^3/uL (130-400); RED BLOOD COUNT 4.15 10^6/uL (4.35-5.85); RED CELL DISTRIBUTION WIDTH 12.5 % (10.0-14.5); WHITE BLOOD COUNT 6.9 10^3/uL (4.3-11.0)
[2017-02-19 14:27] LABS: CALCIUM 9.3 MG/DL (8.5-10.1); CREATININE SERUM 1.4 MG/DL (0.60-1.30); ICTERUS 0.3 (0-1.9); POTASSIUM 4.4 MMOL/L (3.6-5.0)
[2017-02-24 11:39] LABS: BASOPHILS # (AUTO) 0.1 10^3/uL (0.0-0.1); BASOPHILS % (AUTO) 1 % (0-10); EOSINOPHILS % (AUTO) 19 % (0-10); LYMPHOCYTES # (AUTO) 1.3 X 10^3 (1.0-4.0); LYMPHOCYTES % (AUTO) 25 % (12-44); MEAN CORPUSCULAR HEMOGLOBIN 32 PG (25-34); MEAN CORPUSCULAR HGB CONC 34 G/DL (32-36); MEAN CORPUSCULAR VOLUME 94 FL (80-99); MEAN PLATELET VOLUME 10.4 FL (7.4-10.4); MONOCYTES # (AUTO) 0.4 X 10^3 (0.0-1.0); MONOCYTES % (AUTO) 8 % (0-12); NEUTROPHILS # (AUTO) 2.3 X 10^3 (1.8-7.8); NEUTROPHILS % (AUTO) 46 % (42-75); PLATELET COUNT 164 10^3/uL (130-400); RED BLOOD COUNT 4.08 10^6/uL (4.35-5.85); RED CELL DISTRIBUTION WIDTH 12.2 % (10.0-14.5)
[2017-02-24 12:00] LABS: ALBUMIN 3.5 GM/DL (3.2-4.5); BILIRUBIN,TOTAL 0.6 MG/DL (0.1-1.0); CALCIUM 9.3 MG/DL (8.5-10.1); CREATININE SERUM 1.23 MG/DL (0.60-1.30); ICTERUS 0.4 (-100-1.9); MAGNESIUM 1.5 MG/DL (1.8-2.4); POTASSIUM 3.8 MMOL/L (3.6-5.0); TOTAL PROTEIN 6.1 GM/DL (6.4-8.2)
[2017-02-24 12:23] LABS: THYROID STIMULATING HORMONE 2.84 UIU/ML (0.35-4.94)
[2017-03-05 11:12] LABS: BASOPHILS % (AUTO) 1 % (0-10); EOSINOPHILS # (AUTO) 1.1 10^3/uL (0.0-0.3); EOSINOPHILS % (AUTO) 21 % (0-10); LYMPHOCYTES % (AUTO) 20 % (12-44); MEAN CORPUSCULAR HEMOGLOBIN 32 PG (25-34); MEAN CORPUSCULAR HGB CONC 34 G/DL (32-36); MEAN CORPUSCULAR VOLUME 96 FL (80-99); MEAN PLATELET VOLUME 9.9 FL (7.4-10.4); MONOCYTES # (AUTO) 0.4 X 10^3 (0.0-1.0); MONOCYTES % (AUTO) 8 % (0-12); NEUTROPHILS # (AUTO) 2.6 X 10^3 (1.8-7.8); NEUTROPHILS % (AUTO) 50 % (42-75); PLATELET COUNT 197 10^3/uL (130-400); RED BLOOD COUNT 4.02 10^6/uL (4.35-5.85); RED CELL DISTRIBUTION WIDTH 12.9 % (10.0-14.5); WHITE BLOOD COUNT 5.2 10^3/uL (4.3-11.0)
[2017-03-05 11:37] LABS: CALCIUM 9.2 MG/DL (8.5-10.1); CREATININE SERUM 1.32 MG/DL (0.60-1.30); ICTERUS 0.3 (-100-1.9); POTASSIUM 4.4 MMOL/L (3.6-5.0)
[~2017-03-11] VITALS: Ht 177.8 cm; Wt 89.4 kg
[~2017-03-11 12:49] MED LIST changes: +ACETAMINOPHEN 500 MG TAB (TYLENOL) CANCER CTR PO PRN; +AZIT250T5 PO; -BARIUM SUSPENSION 2.1% (VANILLA SILQ) 450 ML PO ONE; +FAMOTIDINE 20MG/2ML IV (CANCER CTR) IV SCH; -IOHEXOL 350 MG/ML 100 ML (OMNIPAQUE 350) VIAL IV ONE; +LACT1CAP72 PO; +NIVOLUMAB 200 MG, NIVOLUMAB 40 MG in NS (IVPB) CANCER CENTER 50 ML IV SCH; -NS 100 ML (IVPB) BAG IV ONE; +NS IV 500 ML (CANCER CENTER) IV SCH; +PNEUMOCOCCAL VACCINE 25 MCG/0.5 ML VIAL IM ONE; +[UNRECOGNIZED DRUG - OTHER] IM ONE; +diphenhydrAMINE 25 MG TAB (BENADRYL) CANCER CENTER PO SCH
[2017-03-11 13:06] LABS: BASOPHILS # (AUTO) 0.1 10^3/uL (0.0-0.1); BASOPHILS % (AUTO) 2 % (0-10); EOSINOPHILS # (AUTO) 1.2 10^3/uL (0.0-0.3); EOSINOPHILS % (AUTO) 25 % (0-10); LYMPHOCYTES # (AUTO) 1.2 X 10^3 (1.0-4.0); LYMPHOCYTES % (AUTO) 27 % (12-44); MEAN CORPUSCULAR HEMOGLOBIN 33 PG (25-34); MEAN CORPUSCULAR HGB CONC 34 G/DL (32-36); MEAN CORPUSCULAR VOLUME 96 FL (80-99); MEAN PLATELET VOLUME 10.3 FL (7.4-10.4); MONOCYTES # (AUTO) 0.4 X 10^3 (0.0-1.0); MONOCYTES % (AUTO) 9 % (0-12); NEUTROPHILS # (AUTO) 1.8 X 10^3 (1.8-7.8); NEUTROPHILS % (AUTO) 38 % (42-75); PLATELET COUNT 210 10^3/uL (130-400); RED BLOOD COUNT 3.81 10^6/uL (4.35-5.85); RED CELL DISTRIBUTION WIDTH 12.8 % (10.0-14.5); WHITE BLOOD COUNT 4.7 10^3/uL (4.3-11.0)
[2017-03-11 13:37] LABS: CALCIUM 8.9 MG/DL (8.5-10.1); CREATININE SERUM 1.27 MG/DL (0.60-1.30); POTASSIUM 3.7 MMOL/L (3.6-5.0)
[2017-03-16] MEDS ORDERED: OXYC40TA46 PO (08:50)
[2017-03-16] MEDS ORDERED: LUBI24CA6 PO (08:50)
[2017-03-16] MEDS ORDERED: OXYC20TA3 PO (08:50)
[2017-03-19] MEDS ORDERED: METR500T21 PO (09:06)
== END 2017-03-18 | disposition home or self-care (01) ==
LOC: ONC 12:49
PROVIDERS: ATTEND Internal Medicine Hematology & Oncology
DX: J91.0 Malignant pleural effusion (principal); Z85.46 Personal history of malignant neoplasm of prostate; K59.00 Constipation, unspecified; R91.8 Other nonspecific abnormal finding of lung field; F17.210 Nicotine dependence, cigarettes, uncomplicated; M48.06 Spinal stenosis, lumbar region; M19.90 Unspecified osteoarthritis, unspecified site; Z79.899 Other long term (current) drug therapy
CPT/HCPCS: 36415; 36591; 80048; 80053; 83735; 84443; 85025; 90732; 96372; 96413; 96523; 99213

== ENCOUNTER 2017-03-16 02:40 | Inpatient (IN) | payer MEDICARE ==
[~2017-03-16] VITALS: Ht 182.9 cm; Wt 88.6 kg
[~2017-03-16 02:40] MED LIST changes: -ACETAMINOPHEN 500 MG TAB (TYLENOL) CANCER CTR PO PRN; -FAMOTIDINE 20MG/2ML IV (CANCER CTR) IV SCH; -MAGN250T PO; +MAGN250T2 PO; -NIVOLUMAB 200 MG, NIVOLUMAB 40 MG in NS (IVPB) CANCER CENTER 50 ML IV SCH; -NS IV 500 ML (CANCER CENTER) IV SCH; -PNEUMOCOCCAL VACCINE 25 MCG/0.5 ML VIAL IM ONE; -[UNRECOGNIZED DRUG - OTHER] IM ONE; -diphenhydrAMINE 25 MG TAB (BENADRYL) CANCER CENTER PO SCH
[2017-03-16] MEDS ORDERED: NS IV 1000 ML 1,000 ML IV ONE (03:02)
--- NOTE | 2017-03-16 03:06 | ED Fever ---
History of Present Illness General Stated Complaint: DECREASED RESPONSIVENESS Source: family, EMS notes reviewed Exam Limitations: clinical condition History of Present Illness Time seen by provider: 02:56 Initial Comments Patient presents via EMS followed shortly there after by his c/ c/o worsening weakness and then fever. Patient known lung Ca patient that is followed by Dr. Dougherty. Reportedly started not to feel well yesterday and went to bed early only to wake up throwing up. states he was in the BR for quite some time. When she went in, he was on the floor and couldn't get up. Didn't note him to feel febrile @ that time. Had to call her son to come help her get him back to bed. Early this AM, he apparently tried to get up and wound up collapsing on the floor. did note him to feel febrile @ that time as well as kind of deleterious, Once again couldn't get him up, so called 911 in order to have EMS bring him to the ED. Last time he was like this he apparently had pneumonia per the . Timing/Duration: this evening Fever Quality: greater than 100.5 F Fever Therapy MOTORCOACH DRIVER: none Associated Symptoms: confusion, nausea/vomiting, weakness Allergies and Home Medications Allergies Coded Allergies: No Known Drug Allergies (Unverified , 04/09/16) Home Medications Azithromycin 250 Mg Tablet, 250 MG PO UD, #6 TAKE 2 TABLETS ON DAY ONE THEN TAKE 1 TABLET DAILY FOR FOUR MORE DAYS Prescribed by: ALLEN ARAUJO on 01/26/17923 Cefdinir 300 Mg Capsule, 300 MG PO BID for 5 Days, #10 Prescribed by: ALLEN ARAUJO on 01/26/17923 Cholecalciferol (Vitamin D3) 2,000 Unit Capsule, 2,000 UNIT PO DAILY, (Reported) Clonazepam 0.5 Mg Tablet, 0.25 MG PO Q8H PRN for ANXIETY, (Reported) TAKES 1/2 OF A (0.5 MG) TABLET Cyanocobalamin (Vitamin B-12) 1,000 Mcg Tablet, 1,000 MCG PO DAILY, (Reported) Fludrocortisone Acetate 0.1 Mg Tab, 0.5 MG PO DAILY, (Reported) TAKES 5 (0.1 MG) TABLETS Folic Acid 1 Mg Tablet, 1 MG PO DAILY, (Reported) Furosemide 20 Mg Tablet, 10 MG PO Q48H, (Reported) TAKES 1/2 OF A (20 MG) TABLET Lactobacillus Combo No.10 1 Each Capsule, 1 EACH PO BID for 10 Days, #20 Prescribed by: ALLEN ARAUJO on 01/26/17 0924 Magnesium 250 Mg Tablet, 500 MG PO DAILY, (Reported) TAKES 2 (250 MG) TABLETS Meloxicam 15 Mg Tablet, 15 MG PO DAILY, (Reported) Metoclopramide HCl 10 Mg Tablet, 10 MG PO Q8H PRN for HICCUPS, (Reported) Omeprazole 40 Mg Capsule.dr, 40 MG PO DAILY, (Reported) Ondansetron HCl 8 Mg Tablet, 8 MG PO Q8H PRN for NAUSEA/VOMITING, (Reported) Oxybutynin Chloride 5 Mg Tablet, 5 MG PO TID, (Reported) Oxycodone HCl 10 Mg Tablet, 10 MG PO Q6H PRN for PAIN, (Reported) Oxycodone HCl 20 Mg Tab.er.12h, 20 MG PO BID PRN for SEVERE PAIN, (Reported) Potassium Chloride 20 Meq Tab.er.prt, 20 MEQ PO DAILY, (Reported) Vitamin E Acetate 400 Unit Capsule, 400 UNIT PO DAILY, (Reported) Constitutional: see HPI, fever, weakness Gastrointestinal: see HPI, nausea, vomiting All Other Systems Reviewed Negative Unless Noted: Yes (Negative excepted noted.) Past Lhhendi-Xjmaqa-Unayrx Hx Patient Social History Type Used: Cigarettes Former Smoker/When Quit: Jun 06, 2015 2nd Hand Smoke Exposure: Yes Recent Hopitalizations: Yes (CHEMO) Seasonal Allergies Seasonal Allergies: No Surgeries HX Surgeries: Yes (X 3 BACK SURGERY'S. T&A) Surgeries: Neurological, Orthopedic Respiratory Hx Respiratory Disorders: Yes Respiratory Disorders: COPD Cardiovascular Hx Cardiac Disorders: No Neurological Hx Neurological Disorders: Yes (FAINTING SPELLS) Neurological Disorders: Headaches /Migraines Reproductive System Hx Reproductive Disorders: No Sexually Transmitted Disease: No HIV/AIDS: No Genitourinary Hx Genitourinary Disorders: No Gastrointestinal Hx Gastrointestinal Disorders: No Gastrointestinal Disorders: Chronic Constipation Musculoskeletal Hx Musculoskeletal Disorders: Yes Musculoskeletal Disorders: Arthritis, Chronic Back Pain Endocrine Hx Endocrine Disorders: No HEENT HX ENT Disorders: No Loss of Vision: Denies Hearing Impairment: Denies Cancer Hx Cancer: Yes Cancer: Lung Psychosocial Hx Psychiatric Problems: Yes Behavioral Health Disorders: Anxiety Integumentary HX Skin/Integumentary Disorder: No Blood Transfusions Hx Blood Disorders: No Adverse Reaction to a Blood Tr: No Family Medical History Significant Family History: Heart Disease Family Medial History: Dementia 19 MOTHER, Onset:60 years & older No Family History of: Not obtainable due to adoption Physical Exam Vital Signs Vital Sign - Last 12Hours 03/16/17 02:40 Temp 102.3 Pulse 84 Resp 16 B/P (MAP) 117/72 Pulse Ox 97 O2 Delivery Room Air Capillary Refill : General Appearance: WD/WN, no apparent distress, other (somnolent) HEENT: pharynx normal Neck: normal inspection Cardiovascular: regular rate, rhythm Gastrointestinal: soft Genital/Rectal: other (reportedly was incontinent of urine here.) Neurologic/Psychiatric: other (somnolent, but arouses to loud verbal stimuli) Skin: warm/dry Focused Exam Lactic Acid Level Laboratory Tests Test 03/16/17 02:58 Lactic Acid Level 0.88 MMOL/L (0.50-2.00) Progress/Results/Core Measures Results/Orders Lab Results Laboratory Tests Test 03/16/17 02:46 03/16/17 02:58 Range/Units White Blood Count 8.6 4.3-11.0 10^3/uL Red Blood Count 4.03 L 4.35-5.85 10^6/uL Hemoglobin 13.0 L 13.3-17.7 G/DL Hematocrit 38 L 40-54 % Mean Corpuscular Volume 93 80-99 FL Mean Corpuscular Hemoglobin 32 25-34 PG Mean Corpuscular Hemoglobin Concent 35 32-36 G/DL Red Cell Distribution Width 12.3 10.0-14.5 % Platelet Count 184 130-400 10^3/uL Mean Platelet Volume 10.7 H 7.4-10.4 FL Neutrophils (%) (Auto) 86 H 42-75 % Lymphocytes (%) (Auto) 6 L 12-44 % Monocytes (%) (Auto) 8 0-12 % Eosinophils (%) (Auto) 1 0-10 % Basophils (%) (Auto) 0 0-10 % Neutrophils # (Auto) 7.3 1.8-7.8 X 10^3 Lymphocytes # (Auto) 0.5 L 1.0-4.0 X 10^3 Monocytes # (Auto) 0.7 0.0-1.0 X 10^3 Eosinophils # (Auto) 0.1 0.0-0.3 10^3/uL Basophils # (Auto) 0.0 0.0-0.1 10^3/uL Neutrophils % (Manual) 88 % Lymphocytes % (Manual) 5 % Monocytes % (Manual) 7 % Eosinophils % (Manual) 0 % Basophils % (Manual) 0 % Band Neutrophils 0 % Blood Morphology Comment NORMAL Prothrombin Time 14.2 12.2-14.7 SEC INR Comment 1.1 0.8-1.4 Activated Partial Thromboplast Time 28 24-35 SEC Sodium Level 139 135-145 MMOL/L Potassium Level 3.4 L 3.6-5.0 MMOL/L Chloride Level 106 98-107 MMOL/L Carbon Dioxide Level 22 21-32 MMOL/L Anion Gap 11 5-14 MMOL/L Blood Urea Nitrogen 12 7-18 MG/DL Creatinine 1.17 0.60-1.30 MG/DL Estimat Glomerular Filtration Rate > 60 BUN/Creatinine Ratio 10 Glucose Level 129 H 70-105 MG/DL Calcium Level 9.2 8.5-10.1 MG/DL Total Bilirubin 0.9 0.1-1.0 MG/DL Aspartate Amino Transf (AST/SGOT) 14 5-34 U/L Alanine Aminotransferase (ALT/SGPT) 9 0-55 U/L Alkaline Phosphatase 68 40-136 U/L Total Protein 6.2 L 6.4-8.2 GM/DL Albumin 3.5 3.2-4.5 GM/DL Lactic Acid Level 0.88 0.50-2.00 MMOL/L My Orders Orders - HUSSEIN VALERO DO Cbc With Automated Diff (03/16/17 03:02) Comprehensive Metabolic Panel (03/16/17 03:02) Lactic Acid Analyzer (03/16/17 03:02) Blood Culture (03/16/17 03:02) Ua Culture If Indicated (03/16/17 03:02) Protime With Inr (03/16/17 03:02) Partial Thromboplastin Time (03/16/17 03:02) Chest 1 View, Ap/Pa Only (03/16/17 03:02) Acetaminophen Tablet (Tylenol Tablet) (03/16/17 03:15) Vital Signs Adult Sepsis Patie Q1HR (03/16/17 03:02) Ns Iv 1000 Ml (Sodium Chloride 0.9%) (03/16/17 03:02) Manual Differential (03/16/17 02:46) Ct Chest Wo (03/16/17 04:22) Ct Head Wo (03/16/17 04:22) Piperacillin Sodium/Tazobactam (Zosyn Vi (03/16/17 06:00) Medications Given in ED Current Medications Medications Dose Ordered Sig/Malcom Route Start Time Stop Time Status Last Admin Dose Admin Acetaminophen 1,000 mg ONCE PRN PO 03/16/17 03:15 UNV 03/16/17 03:13 1,000 MG Sodium Chloride 1,000 ml @ 0 mls/hr Q0M ONCE IV 03/16/17 03:02 03/16/17 03:03 UNV 03/16/17 03:12 1,000 MLS/HR Vital Signs/I&O Vital Sign - Last 12Hours 03/16/17 02:40 Temp 102.3 Pulse 84 Resp 16 B/P (MAP) 117/72 Pulse Ox 97 O2 Delivery Room Air Diagnostic Imaging Diagonstic Imaging: CT Plain Films/CT/US/NM/MRI: head Reviewed: Reviewed [place] Study (nothing acute on CT head, or CT chest per [place] radiologist) Departure Communication Time/Spoke to Admitting Phy: 05:40 Impression Impression: Primary Impression: Fever Additional Impressions: Weakness Altered mental state Lung cancer Disposition: ADMITTED INPATIENT Condition: Stable Decision to Admit Reason: Admit from ER (General) Decision to Admit/Date: Mar 16, 2017 Time/Decision to Admit Time: 05:43 Departure-Patient Inst. Referrals: ALLEN ARAUJO MD (PCP/Family) Primary Care Physician HUSSEIN VALERO DO Mar 16, 2017 03:06
[2017-03-16 03:10] LABS: BASOPHILS % (AUTO) 0 % (0-10); EOSINOPHILS # (AUTO) 0.1 10^3/uL (0.0-0.3); EOSINOPHILS % (AUTO) 1 % (0-10); LYMPHOCYTES # (AUTO) 0.5 X 10^3 (1.0-4.0); LYMPHOCYTES % (AUTO) 6 % (12-44); MEAN CORPUSCULAR HEMOGLOBIN 32 PG (25-34); MEAN CORPUSCULAR HGB CONC 35 G/DL (32-36); MEAN CORPUSCULAR VOLUME 93 FL (80-99); MEAN PLATELET VOLUME 10.7 FL (7.4-10.4); MONOCYTES # (AUTO) 0.7 X 10^3 (0.0-1.0); MONOCYTES % (AUTO) 8 % (0-12); NEUTROPHILS # (AUTO) 7.3 X 10^3 (1.8-7.8); NEUTROPHILS % (AUTO) 86 % (42-75); PLATELET COUNT 184 10^3/uL (130-400); RED BLOOD COUNT 4.03 10^6/uL (4.35-5.85); RED CELL DISTRIBUTION WIDTH 12.3 % (10.0-14.5); WHITE BLOOD COUNT 8.6 10^3/uL (4.3-11.0)
[2017-03-16 03:15] LABS: INR 1.1 (0.8-1.4); PROTHROMBIN TIME PATIENT 14.2 SEC (12.2-14.7)
[2017-03-16] MEDS ORDERED: ACETAMINOPHEN 500 MG TAB (TYLENOL) PO PRN ×2 (03:15→07:00)
[2017-03-16 03:22] LABS: ALANINE AMINOTRANSFERASE 9 U/L (0-55); ALBUMIN 3.5 GM/DL (3.2-4.5); ANION GAP 11 MMOL/L (5-14); ASPARTATE AMINO TRANSFERASE 14 U/L (5-34); BILIRUBIN,TOTAL 0.9 MG/DL (0.1-1.0); BLOOD UREA NITROGEN 12 MG/DL (7-18); BUN/CREATININE RATIO 10; CALCIUM 9.2 MG/DL (8.5-10.1); CARBON DIOXIDE 22 MMOL/L (21-32); CHLORIDE 106 MMOL/L (98-107); CREATININE SERUM 1.17 MG/DL (0.60-1.30); GFR ESTIMATED > 60; GLUCOSE 129 MG/DL (70-105); POTASSIUM 3.4 MMOL/L (3.6-5.0); SODIUM 139 MMOL/L (135-145); TOTAL PROTEIN 6.2 GM/DL (6.4-8.2)
[2017-03-16 03:27] LABS: BAND NEUTROPHILS 0 %; BASOPHILS % (MANUAL) 0 %; EOSINOPHILS % (MANUAL) 0 %; LYMPHOCYTES % (MANUAL) 5 %; NEUTROPHILS % (MANUAL) 88 %
[2017-03-16] MEDS ORDERED: PIPERACILLIN/TAZO 4.5 GM VIAL (ZOSYN) IV ONE (05:49)
[2017-03-16] MEDS ORDERED: NS (IVPB) 100 ML ONE (05:50)
[2017-03-16] MEDS ORDERED: PIPERACILLIN SODIUM/TAZOBACTAM 4.5 GM in NS (IVPB) 100 ML IV ONE (06:00)
[2017-03-16] MEDS ORDERED: NS IV 1000 ML 1,000 ML IV SCH (06:30)
[2017-03-16] MEDS ORDERED: ONDANSETRON 4 MG/2 ML (SDV) Z0FRAN IVP ONE (06:30)
[2017-03-16 06:55] VITALS: BP 93/55
[2017-03-16] MEDS ORDERED: VANCOMYCIN 2000 MG/NS 500 ML IVPB IV NR ×2 (07:30)
--- NOTE | 2017-03-16 07:45 | Diagnostic Imaging Report ---
INDICATION: Fever. EXAMINATION: Chest, 03/16/17. COMPARISON: 01/26/2017. FINDINGS: Linear markings in the left midlung likely atelectasis or scar. A chest port is noted on the right stable from previous imaging. The heart is unchanged. There is no pulmonary vascular congestion. There are no effusions or pneumothorax. Vague nodularities in the left midlung are noted fairly similar to previous. IMPRESSION: 1. Changes throughout the left midlung similar to previous imaging. No definite superimposed infiltrates noted. Dictated by: Dictated on workstation # [id number]
--- NOTE | 2017-03-16 07:49 | Diagnostic Imaging Report ---
PROCEDURE: CT head without contrast. TECHNIQUE: Multiple contiguous axial images were obtained through the brain without the use of intravenous contrast. INDICATION: History of carcinoma. Decreasing response. EXAMINATION: CT brain without contrast 03/16/2017. COMPARISON: 04/16/2016. FINDINGS: No acute hemorrhage or infarct is seen with no mass, mass effect, or midline shift appreciated. Fairly marked diffuse chronic ischemic changes are noted in a periventricular distribution. These findings are stable from previous. The ventricles are prominent but unchanged from prior as well. There is diffuse atrophy. Motion artifact somewhat limits evaluation. No calvarial fractures are seen. Very small bilateral air/fluid levels noted in the maxillary sinuses. Likely retention polyp or cyst in the right maxillary sinus also noted. Remaining sinuses demonstrate chronic change. No acute process seen in the mastoid air cells. IMPRESSION: 1. Sinus disease as discussed above. 2. Diffuse chronic change throughout the brain with no superimposed acute process noted, however, given the history of carcinoma, if there is continued clinical question or concern, followup imaging with MRI pre and postcontrast would be recommended. Additionally, not mentioned in the body of the report, there is a hypodensity within the medial aspect of the left occipital lobe. This appears to have been present on previous imaging although it appears more prominent today most likely due to a change in the angle of imaging but again if symptoms persist, MRI could exclude an underlying lesion in this area. Dictated by: Dictated on workstation # [id number]
--- NOTE | 2017-03-16 08:36 | History & Physicial ---
History of Present Illness History of Present Illness Reason for visit/HPI PT IS A 71 Y/O MALE WHO IS KNOWN TO ME FROM CLINIC. HE PRESENTED TO THE HOSPITAL AFTER HAVING A FEW DAYS OF CONFUSION AND WEAKNESS. HE HAD A FEVER, SYNCOPAL EPISODE AND STARTED TO HAVE IMPROVED SYMPTOMS, FAMILY KEPT HIM AT HOME , THEN THE NEXT DAY HE HAD INCREASED WEAKNESS, AND HAD A REPEAT SYNCOPAL EPISODE AND HIS FAMILY WAS UNABLE TO GET HIM UP OFF OF THE FLOOR. HE PRESENTED TO THE HOSPITAL IN A CONFUSED STATUS, FOUND TO HAVE A FEVER AND WAS THUS ADMITTED TO THE HOSPITAL. Date of Admission Mar 16, 2017 at 05:43 Date Seen by Provider: Mar 16, 2017 Time Seen by Provider: 08:25 I consulted on this patient on 03/16/17 08:35 Attending Physician Allen Houston MD Admitting Physician Allen Houston MD Consult Allergies and Home Medications Allergies Coded Allergies: No Known Drug Allergies (Unverified , 04/09/16) Home Medications Clonazepam 0.5 Mg Tablet, 0.5 MG PO Q8H PRN for ANXIETY, (Reported) Cyanocobalamin (Vitamin B-12) 1,000 Mcg Tablet, 1,000 MCG PO DAILY, (Reported) Furosemide 20 Mg Tablet, 10 MG PO DAILY PRN for SWELLING, (Reported) TAKES 1/2 OF A (20 MG) TABLET Lubiprostone 24 Mcg Capsule, 24 MCG PO DAILY, (Reported) Magnesium 250 Mg Tablet, 500 MG PO DAILY, (Reported) TAKES 2 (250 MG) TABLETS Meloxicam 15 Mg Tablet, 15 MG PO DAILY, (Reported) Omeprazole 40 Mg Capsule.dr, 40 MG PO DAILY, (Reported) Ondansetron HCl 8 Mg Tablet, 8 MG PO Q8H PRN for NAUSEA/VOMITING-1ST LINE, ( Reported) Oxycodone HCl 20 Mg Tablet, 20-40 MG PO EVERY 4-6 HOURS PRN for PAIN-SEVERE, ( Reported) Oxycodone HCl 40 Mg Tab.er.12h, 40 MG PO BID PRN for PAIN-SEVERE, (Reported) Potassium Chloride 20 Meq Tab.er.prt, 20 MEQ PO BID, (Reported) Vitamin E Acetate 400 Unit Capsule, 400 UNIT PO DAILY, (Reported) Past Njdplpt-Nheagr-Jqhmwr Hx Patient Social History Marrital Status: Alcohol Use: Denies Use Recreational Drug Use: No Smoking Status: Current Everyday Smoker Former smoker/When Quit: Jun 06, 2015 Type Used: Cigarettes 2nd Hand Smoke Exposure: Yes Physical Abuse Screen: No Sexual Abuse: No Recent Foreign Travel: No Contact w/other who traveled: No Recent Hopitalizations: Yes (CHEMO) Recent Infectious Disease Expo: No Seasonal Allergies Seasonal Allergies: No Surgeries HX Surgeries: Yes (X 3 BACK SURGERY'S. T&A) Surgeries: Neurological, Orthopedic Respiratory Hx Respiratory Disorders: Yes Cardiovascular Hx Cardiovascular Disorders: No Neurological Hx Neurological Disorders: Yes (FAINTING SPELLS) Neurological Disorders: Headaches /Migraines Reproductive System Hx Reproductive Disorders: No Sexually Transmitted Disease: No HIV/AIDS: No Genitourinary Hx Genitourinary Disorders: No Gastrointestinal Hx Gastrointestinal Disorders: No Gastrointestinal Disorders: Chronic Constipation Musculoskeletal Hx Musculoskeletal Disorders: Yes Musculoskeletal Disorders: Arthritis, Chronic Back Pain Endocrine Hx Endocrine Disorders: No HEENT HX ENT Disorders: No Loss of Vision: Denies Hearing Impairment: Denies Cancer Hx Cancer: Yes Cancer: Lung Psychosocial Hx Psychiatric Problems: Yes Behavioral Health Disorders: Anxiety Integumentary HX Skin/Integumentary Disorder: No Blood Transfusions Hx Blood Disorders: No Adverse Reaction to a Blood Tr: No Reviewed Nursing Assessment Reviewed/Agree w Nursing PMH: Yes Family Medical History Significant Family History: Heart Disease Family Hx: Dementia 19 MOTHER, Onset:60 years & older No Family History of: Not obtainable due to adoption Constitutional: No chills, fever, malaise, weakness EENTM: No hoarseness, No mouth pain, No throat pain, No throat swelling Respiratory: cough, dyspnea on exertion, short of breath Cardiovascular: No chest pain, No palpitations Gastrointestinal: No abdominal pain, No constipation, No diarrhea Genitourinary: no symptoms reported Musculoskeletal: back pain, muscle stiffness, muscle weakness Skin: No change in color, No lesions Psychiatric/Neurological: Anxiety All Other Systems Reviewed Negative Unless Noted: Yes Physical Exam Vital Signs Vital Sign - Last 12Hours 03/16/17 02:40 Temp 102.3 Pulse 84 Resp 16 B/P (MAP) 117/72 Pulse Ox 97 O2 Delivery Room Air Capillary Refill : Less Than 3 Seconds General Appearance: No Apparent Distress, WD/WN Eyes: Bilateral Eye EOMI, Bilateral Eye Normal Inspection, Bilateral Eye PERRL HEENT: PERRL/EOMI, Pharynx Normal Neck: Full Range of Motion, Supple Respiratory: Chest Non Tender, Decreased Breath Sounds, Rhonci Cardiovascular: Regular Rate, Rhythm, No Edema Gastrointestinal: Normal Bowel Sounds, Soft Rectal: Deferred Back: Other (SURGICAL SCARING) Neurologic/Psychiatric: Alert, Other (ORIENTED TO PERSON, PLACE) Skin: Normal Color, Warm/Dry Lymphatic: No Adenopathy Assessment/Plan Assessment and Plan FEVER CONFUSION DELIRIUM HX LUNG CANCER CHRONIC PAIN SYNDROME FROM BACK/NECK SURGERY MILD HYPOKALEMIA MILD ANEMIA FEVER - ON IV ANTIBIOTICS, BLOOD CULTURES PENDING, MONITOR SYMPTOMS. CONFUSION/DELIRIUM - DUE TO ACUTE ILLNESS - PUSH IV FLUIDS, IV ANTIBIOTICS, HOLD LONG ACTING NARCOTICS, MONITOR SYMPTOMS, USE PRN SHORT ACTING PAIN MEDICATIONS. HX LUNG CANCER - WAITING ON REPEAT IMAGING TOMORROW. CHRONIC PAIN SYNDROME FROM BACK/NECK SURGERY - HOLD LONG ACTING PAIN MEDICATIONS , USE SHORT ACTING PAIN MEDS AT THIS TIME. MILD HYPOKALEMIA - REPLENISH IV/ORAL. MILD ANEMIA - MONITOR LABS. DVT PROPHYLAXIS, GI PROPHYLAXIS - WILL START SCD'S AND LOVENOX WELL PPI Problems: Admission Diagnosis FEVER CONFUSION DELIRIUM HX LUNG CANCER CHRONIC PAIN SYNDROME FROM BACK/NECK SURGERY MILD HYPOKALEMIA MILD ANEMIA ALLEN HOUSTON MD Mar 16, 2017 08:36
[2017-03-16] MEDS ORDERED: CATHETER FLUSH 10 ML SYR IV PRN (08:45)
[2017-03-16] MEDS ORDERED: OXYC40TA46 PO (08:50)
[2017-03-16] MEDS ORDERED: OXYC20TA3 PO (08:50)
[2017-03-16] MEDS ORDERED: LUBI24CA6 PO (08:50)
--- NOTE | 2017-03-16 08:51 | Diagnostic Imaging Report ---
PROCEDURE: CT chest without contrast. TECHNIQUE: Multiple contiguous axial images were obtained through the chest without the use of intravenous contrast. INDICATION: Fever. FINDINGS: There is minimal atelectasis and scarring seen in the left lower lobe which appears to be minimally increased within the left lower lobe. There is a small left pleural effusion. There is otherwise no significant consolidation or mass or suspicious nodule. Minimal atelectasis in the right lung base is seen. The heart size is normal. No pericardial effusion. The thoracic aorta is normal in caliber. There is no mediastinal mass. No significantly enlarged mediastinal, or from axillary lymph nodes noted. The hilar vessels are not opacified with no hilar mass identified. The sections in the upper abdomen demonstrate suggestion of moderate atrophy in the left kidney. The osseous structures demonstrate prominent degenerative changes and scoliosis in the thoracic spine. IMPRESSION: There is scarring in the left lower lobe similar to the prior exam with minimal increased consolidation or atelectasis adjacent to it. There is minimal left pleural effusion also seen. Dictated by: Dictated on workstation # [id number]
[2017-03-16] MEDS: NS IV 1000 ML 1,000 ML IV SCH ×2 (09:01→18:38)
[2017-03-16] MEDS ORDERED: clonazePAM 0.5 MG (KlonoPIN) TAB PO PRN (09:30)
[2017-03-16] MEDS ORDERED: FUROSEMIDE 20 MG (LASIX) TAB PO PRN (09:30)
[2017-03-16] MEDS ORDERED: ONDANSETRON 8 MG (ZOFRAN) ORAL DISSOLVE TAB PO PRN (09:45)
[2017-03-16] MEDS: LUBIPROSTONE 8 MCG (AMITIZA) CAPSULE NON-FORMULARY PO SCH (10:24)
[2017-03-16] MEDS: MAGNESIUM OXIDE (MAG-OX)400 MG TAB PO SCH (10:24)
[2017-03-16] MEDS: CYANOCOBALAMIN 500 MCG TAB (VITAMIN B-12) PO SCH (10:25)
[2017-03-16] MEDS: MELOXICAM 7.5 MG (MOBIC) TABLET PO SCH (10:25)
[2017-03-16] MEDS: PANTOPRAZOLE 40 MG (PROTONIX) TAB PO SCH (10:25)
[2017-03-16] MEDS: KCL 20 MEQ TAB (K-DUR) PO SCH ×2 (10:26→18:38)
[2017-03-16 12:06] LABS: BILIRUBIN,URINE NEGATIVE (NEGATIVE); KETONES,URINE 1+ (NEGATIVE); LEUKOCYTE ESTERASE ,URINE 1+ (NEGATIVE); NITRITE,URINE NEGATIVE (NEGATIVE); PH,URINE 7 (5-9); PROTEIN,URINE NEGATIVE (NEGATIVE); UROBILINOGEN,URINE NORMAL (NORMAL)
[2017-03-16 12:14] LABS: SQUAMOUS EPITHELIAL CELL,UR 0-2 /HPF; WBC,URINE RARE /HPF
[2017-03-16 12:52] VITALS: BP 90/52
[2017-03-16] MEDS: PIPERACILLIN/TAZOBACTAM 4.5 GM/NS 100 ML IVPB IV SCH ×4 (12:55→20:19)
[2017-03-16 16:28] VITALS: BP 94/52
[2017-03-16] MEDS: VANCOMYCIN 1250 MG/NS 250 ML IVPB IV SCH ×2 (18:42)
[2017-03-16 20:23] VITALS: BP 95/63
[2017-03-17] VITALS: BP 96/60
[2017-03-17 04:00] VITALS: BP 103/70
[2017-03-17] MEDS: PIPERACILLIN/TAZOBACTAM 4.5 GM/NS 100 ML IVPB IV SCH ×6 (04:01→20:01)
[2017-03-17 04:57] LABS: RED BLOOD COUNT 3.43 10^6/uL (4.35-5.85); RED CELL DISTRIBUTION WIDTH 12.4 % (10.0-14.5); WHITE BLOOD COUNT 4.8 10^3/uL (4.3-11.0)
[2017-03-17 05:17] LABS: ALANINE AMINOTRANSFERASE 7 U/L (0-55); ALBUMIN 2.8 GM/DL (3.2-4.5); ANION GAP 7 MMOL/L (5-14); ASPARTATE AMINO TRANSFERASE 15 U/L (5-34); BILIRUBIN,TOTAL 0.9 MG/DL (0.1-1.0); BLOOD UREA NITROGEN 9 MG/DL (7-18); BUN/CREATININE RATIO 9; CALCIUM 8.2 MG/DL (8.5-10.1); CARBON DIOXIDE 21 MMOL/L (21-32); CHLORIDE 111 MMOL/L (98-107); CREATININE SERUM 1.03 MG/DL (0.60-1.30); GFR ESTIMATED > 60; GLUCOSE 90 MG/DL (70-105); MAGNESIUM 1.5 MG/DL (1.8-2.4); POTASSIUM 4.1 MMOL/L (3.6-5.0); SODIUM 139 MMOL/L (135-145); TOTAL PROTEIN 5.1 GM/DL (6.4-8.2)
[2017-03-17] MEDS: KCL 20 MEQ TAB (K-DUR) PO SCH ×2 (06:15→17:45)
[2017-03-17] MEDS: CYANOCOBALAMIN 500 MCG TAB (VITAMIN B-12) PO SCH (06:15)
[2017-03-17] MEDS: PANTOPRAZOLE 40 MG (PROTONIX) TAB PO SCH (06:15)
[2017-03-17] MEDS: NS IV 1000 ML 1,000 ML IV SCH ×2 (07:03→16:38)
[2017-03-17 08:00] VITALS: BP 106/76
[2017-03-17] MEDS: VANCOMYCIN 1250 MG/NS 250 ML IVPB IV SCH ×4 (08:35→19:46)
--- NOTE | 2017-03-17 08:56 | Progress Note (SOAP) ---
Subjective Date Seen by Provider: Mar 17, 2017 Time Seen by Provider: 08:30 Subjective/Events-last exam PT MORE ALERT TODAY - HE REPORTS THAT HE HAS BACK PAIN, BUT HIS WEAKNESS IS IMPROVED. HE REPORTS THAT HE IS HAVING NORMAL BOWEL AND BLADDER MOVEMENTS. HE IS NOT MORE ACUTELY SHORT OF BREATH THAN USUAL. Review of Systems General: No Chills, Fatigue HEENT: No Head Aches Pulmonary: Dyspnea, No Cough Cardiovascular: No: Chest Pain, Palpitations Gastrointestinal: No: Abdominal Pain, Nausea Genitourinary: No Dysuria, Frequency Neurological: Weakness, No: Confusion Objective Exam Vital Signs Date Time Temp Pulse Resp B/P (MAP) Pulse Ox O2 Delivery O2 Flow Rate FiO2 03/17/17 04:00 97.8 59 18 103/70 98 Room Air 03/17/17 00:00 97.3 63 20 96/60 96 Room Air 03/16/17 20:23 96.9 67 18 95/63 96 Room Air 03/16/17 20:00 Room Air 03/16/17 16:28 99.1 62 16 94/52 97 Room Air 03/16/17 12:52 99.0 64 16 90/52 95 Room Air 03/16/17 10:11 99.8 03/16/17 09:30 99.8 I & O 03/17/17 07:00 Intake Total 2350 ml Output Total 2800 ml Balance -450 ml Capillary Refill : Less Than 3 SecondsLess Than 3 Seconds General Appearance: No Apparent Distress, WD/WN HEENT: PERRL/EOMI, Pharynx Normal Neck: Full Range of Motion, Supple Respiratory: Chest Non Tender, Decreased Breath Sounds Cardiovascular: Regular Rate, Rhythm Gastrointestinal: normal bowel sounds, non tender, soft, no organomegaly, no pulsatile mass Extremity: Normal Capillary Refill, No Pedal Edema Neurologic/Psychiatric: Alert, Oriented x3, Normal Mood/Affect Skin: Warm/Dry Lymphatic: No Adenopathy Results Lab Laboratory Tests 03/16/17 11:57: Urine Color YELLOW, Urine Clarity CLEAR, Urine pH 7, Urine Specific [place] 1.005L, Urine Protein NEGATIVE, Urine Glucose (UA) NEGATIVE, Urine Ketones 1+H, Urine Nitrite NEGATIVE, Urine Bilirubin NEGATIVE, Urine Urobilinogen NORMAL, Urine Leukocyte Esterase 1+H, Urine RBC (Auto) 2+H, Urine RBC 2-5H, Urine WBC RARE, Urine Squamous Epithelial Cells 0-2, Urine Crystals NONE, Urine Bacteria TRACE, Urine Casts NONE, Urine Mucus NEGATIVE, Urine Culture Indicated NO 03/17/17 04:15: White Blood Count 4.8, Red Blood Count 3.43L, Hemoglobin 10.9L, Hematocrit 33L, Mean Corpuscular Volume 96, Mean Corpuscular Hemoglobin 32, Mean Corpuscular Hemoglobin Concent 33, Red Cell Distribution Width 12.4, Platelet Count 152, Mean Platelet Volume 11.0H, Sodium Level 139, Potassium Level 4.1, Chloride Level 111H, Carbon Dioxide Level 21, Anion Gap 7, Blood Urea Nitrogen 9, Creatinine 1.03, Estimat Glomerular Filtration Rate > 60, BUN/Creatinine Ratio 9 , Glucose Level 90, Calcium Level 8.2L, Magnesium Level 1.5L, Total Bilirubin 0.9, Aspartate Amino Transf (AST/SGOT) 15, Alanine Aminotransferase (ALT/SGPT) 7 , Alkaline Phosphatase 50, Total Protein 5.1L, Albumin 2.8L Microbiology 03/16/17 Blood Culture - Preliminary, Resulted No growth Assessment/Plan Assessment/Plan Assess & Plan/Chief Complaint FEVER CONFUSION DELIRIUM HX LUNG CANCER CHRONIC PAIN SYNDROME FROM BACK/NECK SURGERY MILD HYPOKALEMIA MILD ANEMIA FEVER - ON IV ANTIBIOTICS, BLOOD CULTURES PENDING, MONITOR SYMPTOMS. CONFUSION/DELIRIUM - DUE TO ACUTE ILLNESS - PUSH IV FLUIDS, IV ANTIBIOTICS, HOLD LONG ACTING NARCOTICS, MONITOR SYMPTOMS, USE PRN SHORT ACTING PAIN MEDICATIONS. HX LUNG CANCER - WAITING ON REPEAT IMAGING TODAY - CT OF CHEST WITH CONTRAST, AND ABDOMEN AND PELVIS WITH AND WITHOUT CONTRAST. CHRONIC PAIN SYNDROME FROM BACK/NECK SURGERY - HOLD LONG ACTING PAIN MEDICATIONS , USE SHORT ACTING PAIN MEDS AT THIS TIME. MILD HYPOKALEMIA - REPLENISH IV/ORAL. MILD ANEMIA - MONITOR LABS. DVT PROPHYLAXIS, GI PROPHYLAXIS - WILL START SCD'S AND LOVENOX WELL PPI Clinical Quality Measures DVT/VTE Risk/Contraindication: Risk Factor Score Per Nursin RFS Level Per Nursing on Admit: 4+=Very High ALLEN ARAUJO MD Mar 17, 2017 08:56
[2017-03-17] MEDS ORDERED: CATHETER FLUSH 10 ML SYR IV PRN (09:15)
[2017-03-17] MEDS ORDERED: IOHEXOL 350 MG/ML 100 ML (OMNIPAQUE 350) VIAL IV ONE (09:15)
[2017-03-17] MEDS ORDERED: NS 100 ML (IVPB) BAG IV ONE (09:15)
[2017-03-17] MEDS: MAGNESIUM OXIDE (MAG-OX)400 MG TAB PO SCH (09:52)
[2017-03-17] MEDS: LUBIPROSTONE 8 MCG (AMITIZA) CAPSULE NON-FORMULARY PO SCH (09:52)
[2017-03-17] MEDS: MELOXICAM 7.5 MG (MOBIC) TABLET PO SCH (09:52)
[2017-03-17] MEDS: ENOXAPARIN 40 MG/0.4 ML (LOVENOX) SYR SC SCH (09:53)
[2017-03-17 11:58] VITALS: BP 98/64
--- NOTE | 2017-03-17 12:12 | Diagnostic Imaging Report ---
PROCEDURE: CT chest with contrast, CT abdomen and pelvis with and without contrast. TECHNIQUE: Pre and post intravenous contrast axial imaging of the abdomen and pelvis and post contrast axial imaging of the chest were performed. INDICATION: Lung cancer. COMPARISON: 12/30/2016. FINDINGS: CT chest: There are areas of linear consolidation seen in the superior segment of the left lower lobe similar to 12/30/2016. This is probably related to post therapeutic changes. There is a tiny left pleural effusion. There is otherwise no significant consolidation, mass, or suspicious nodule identified. Scattered calcified granulomas are seen. The mediastinum demonstrates no significant lymphadenopathy. No lymphadenopathy in the robe seen. The heart size is normal. No pericardial effusion. The osseous structures demonstrate prominent degenerative changes in the thoracic spine and scoliotic curvature. CT abdomen and pelvis: The liver, the spleen, the pancreas, and the adrenals appear unremarkable. Adjacent to the left adrenal gland there is a small gastric diverticulum. Surgical clips near the GE junction area are noted. The kidneys demonstrate symmetric enhancement and contrast excretion. The size of the kidneys however is asymmetric with moderate atrophy of the left kidney. No hydronephrosis on either side. The unenhanced phase demonstrates no stones. The abdominal aorta is normal in caliber. No para-aortic significantly enlarged lymph node is seen. The distal colon and rectum demonstrate thickening and surrounding inflammatory changes suggestive of colitis of likely inflammatory or infectious etiology. This extends from the rectum into the mid sigmoid colon. There is urinary bladder wall thickening of mild degree seen, nonspecific. It may represent cystitis or relate to obstructive changes from BPH. The prostate is 5.2 cm in transverse dimension, mildly enlarged. There is no significant free fluid or fluid collection in the abdomen or pelvis seen. Tissue edema however in the perirectal fat is noted. The osseous structures demonstrate fusion changes and fusion hardware in the mid to lower lumbar spine with no destructive osseous mass. There is a lipoma measuring 6.5 x 2.9 cm in the left gluteal muscles. IMPRESSION: CT chest: 1. Stable curvilinear areas of consolidation in the superior segment of the left lower lobe likely related to post therapeutic changes. No definitive evidence of recurrence. Follow-up exams recommended. 2. Stable tiny left pleural effusion or pleural thickening. CT abdomen and pelvis: 1. No suspicious mass to suggest metastatic disease. 2. Moderate atrophy of the left kidney. 3. Thickening and inflammation in the rectosigmoid suggestive of inflammatory or infectious colitis. 4. Mild enlargement of the prostate and bladder wall thickening could relate to BPH. Element of cystitis could also be present. Dictated by: Dictated on workstation # [id number]
--- NOTE | 2017-03-17 13:07 | Consultation ---
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 CT scan head without contrast shows no acute abnormalities but it is not study of choice to evaluate for brain metastasis. Confusion has improved since antibiotics were given and fever resolved. Allergies and Home Medications Allergies Coded Allergies: No Known Drug Allergies (Unverified , 04/09/16) Home Medications Clonazepam 0.5 Mg Tablet, 0.5 MG PO Q8H PRN for ANXIETY, (Reported) Cyanocobalamin (Vitamin B-12) 1,000 Mcg Tablet, 1,000 MCG PO DAILY, (Reported) Furosemide 20 Mg Tablet, 10 MG PO DAILY PRN for SWELLING, (Reported) TAKES 1/2 OF A (20 MG) TABLET Lubiprostone 24 Mcg Capsule, 24 MCG PO DAILY, (Reported) Magnesium 250 Mg Tablet, 500 MG PO DAILY, (Reported) TAKES 2 (250 MG) TABLETS Meloxicam 15 Mg Tablet, 15 MG PO DAILY, (Reported) Omeprazole 40 Mg Capsule.dr, 40 MG PO DAILY, (Reported) Ondansetron HCl 8 Mg Tablet, 8 MG PO Q8H PRN for NAUSEA/VOMITING-1ST LINE, ( Reported) Oxycodone HCl 20 Mg Tablet, 20-40 MG PO EVERY 4-6 HOURS PRN for PAIN-SEVERE, ( Reported) Oxycodone HCl 40 Mg Tab.er.12h, 40 MG PO BID PRN for PAIN-SEVERE, (Reported) Potassium Chloride 20 Meq Tab.er.prt, 20 MEQ PO BID, (Reported) Vitamin E Acetate 400 Unit Capsule, 400 UNIT PO DAILY, (Reported) Past Fmxjxjp-Thylga-Yssctw Hx Patient Social History Alcohol Use: Denies Use Recreational Drug Use: No Smoking Status: Current Everyday Smoker Type Used: Cigarettes Former Smoker/When Quit: Jun 06, 2015 2nd Hand Smoke Exposure: Yes Recent Foreign Travel: No Contact w/Someone Who Travel: No Recent Infectious Disease Expo: No Recent Hopitalizations: Yes (CHEMO -- [facility] CHEMO [place] 03/11) Physical Abuse Screen: No Sexual Abuse: No Seasonal Allergies Seasonal Allergies: No Surgeries HX Surgeries: Yes (X 3 BACK SURGERY'S. T&A) Surgeries: Neurological, Orthopedic Respiratory Hx Respiratory Disorders: Yes Respiratory Disorders: COPD Cardiovascular Hx Cardiac Disorders: No Neurological Hx Neurological Disorders: Yes (FAINTING SPELLS) Neurological Disorders: Headaches /Migraines Reproductive System Hx Reproductive Disorders: No Sexually Transmitted Disease: No HIV/AIDS: No Genitourinary Hx Genitourinary Disorders: No Gastrointestinal Hx Gastrointestinal Disorders: No Gastrointestinal Disorders: Chronic Constipation Musculoskeletal Hx Musculoskeletal Disorders: Yes Musculoskeletal Disorders: Arthritis, Chronic Back Pain Endocrine Hx Endocrine Disorders: No HEENT HX ENT Disorders: No Loss of Vision: Denies Hearing Impairment: Denies Cancer Hx Cancer: Yes Cancer: Lung Psychosocial Hx Psychiatric Problems: Yes Behavioral Health Disorders: Anxiety Integumentary HX Skin/Integumentary Disorder: No Blood Transfusions Hx Blood Disorders: No Adverse Reaction to a Blood Tr: No Reviewed Nursing Assessment Reviewed/Agree w Nursing PMH: Yes Family Medical History Significant Family History: Heart Disease Family Medial History: Dementia 19 MOTHER, Onset:60 years & older No Family History of: Not obtainable due to adoption Review of Systems-General Constitutional: dizziness, fever, malaise, weakness Respiratory: cough Gastrointestinal: constipation Musculoskeletal: back pain Physical Exam-General Problems Physical Exam Vital Signs Vital Sign - Last 12Hours 03/16/17 02:40 Temp 102.3 Pulse 84 Resp 16 B/P (MAP) 117/72 Pulse Ox 97 O2 Delivery Room Air Capillary Refill : Less Than 3 SecondsLess Than 3 Seconds General Appearance: WD/WN, no apparent distress HEENT: PERRL/EOMI Neck: non-tender Respiratory: decreased breath sounds Cardiovascular: regular rate, rhythm Gastrointestinal: normal bowel sounds, non tender, soft Rectal: deferred Back: normal inspection, no CVA tenderness Extremities: non-tender, no pedal edema, no calf tenderness Neurologic/Psychiatric: wound care specialist II-XII nml as tested, alert, oriented x 3 Comments Laboratory Tests 03/16/17 02:46 03/17/17 04:15 Laboratory Tests 03/16/17 02:46: Red Blood Count 4.03L, Hemoglobin 13.0L, Hematocrit 38L, Mean Platelet Volume 10.7H, Neutrophils (%) (Auto) 86H, Lymphocytes (%) (Auto) 6L, Lymphocytes # ( Auto) 0.5L, Potassium Level 3.4L, Glucose Level 129H, Total Protein 6.2L 03/16/17 02:58: 03/16/17 11:57: Urine Specific [place] 1.005L, Urine Ketones 1+H, Urine Leukocyte Esterase 1+H, Urine RBC (Auto) 2+H, Urine RBC 2-5H 03/17/17 04:15: Red Blood Count 3.43L, Hemoglobin 10.9L, Hematocrit 33L, Mean Platelet Volume 11.0H, Total Protein 5.1L, Chloride Level 111H, Calcium Level 8.2L, Magnesium Level 1.5L, Albumin 2.8L 03/17/17 18:40: CAT scan chest abdomen and pelvis done in 03/17/17: IMPRESSION: CT chest: 1. Stable curvilinear areas of consolidation in the superior segment of the left lower lobe likely related to post therapeuticchanges. No definitive evidence of recurrence. Follow-up exams recommended. 2. Stable tiny left pleural effusion or pleural thickening. CT abdomen and pelvis: 1. No suspicious mass to suggest metastatic disease. 2. Moderate atrophy of the left kidney. 3. Thickening and inflammation in the rectosigmoid suggestive of inflammatory or infectious colitis. 4. Mild enlargement of the prostate and bladder wall thickening could relate to BPH. Element of cystitis could also be present. MRI brain done in 03/17/17:IMPRESSION: 1. No evidence of metastasis. 2. Extensive white matter lesions are likely secondary to chronic microvascular ischemic changes. 3. Prominence of the lateral ventricles are favored to be secondary to age- related atrophy and ex vacuo dilatation from brain volume loss, probably without element of normal pressure hydrocephalus. Correlate clinically Assessment/Plan Assessment/Plan Admission Diagnosis/Plan 1. Fever/altered mental status--confusion probably related to acute illness. MRI has been reviewed and shows no evidence of metastatic lesion. Improved with IV antibiotics. Blood cultures negative. 2. 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 The described prostatic enlargement and rectosigmoid wall thickening is likely related to his previous radiation therapy for his prostate cancer that was diagnosed in 2008. Cannot exclude recurrent disease. a. We will obtain urinalysis and urine culture if indicated to evaluate for bacteria cystitis 3. Drop in hemoglobin from 13-10.9--likely related to hydration. We will check : Stool for occult Blood and monitor CBC 4. History recurrent syncope 5. Chronic back pain/spinal stenosis 6. History of prostate cancer diagnosed 2009 treated with radiation 7. Chronic tobaccoism Clinical Quality Measures DVT/VTE Risk/Contraindication: Risk Factor Score Per Nursin RFS Level Per Nursing on Admit: 4+=Very High RABIA TOUSSAINT MD Mar 17, 2017 13:07
[2017-03-17] MEDS ORDERED: GADOBUTROL 10 MMOL/10 ML (GADAVIST) VIAL IV ONE (14:45)
--- NOTE | 2017-03-17 15:31 | Diagnostic Imaging Report ---
PROCEDURE: MR imaging of the brain with and without contrast. TECHNIQUE: Multiplanar, multisequence MR imaging of the brain was performed with and without contrast. INDICATION: Altered mental status. Lung cancer. 8 mL of Gadavist is administered intravenously. FINDINGS: There is no diffusion restriction to suggest an acute infarct or other diffusion abnormality. There is extensive periventricular and deep white matter T2 hyperintense signal abnormality with some as well involving the subcortical white matter, likely related to chronic microvascular ischemic changes. There is [id number] brain volume loss with prominence of the CSF spaces and lateral ventricles. This favors to be secondary to age-related atrophy and ex vacuo dilatation from the chronic ischemic changes rather than pathologic ventricular dilatation to suggest normal pressure hydrocephalus. There is no enhancing mass. The pituitary gland is normal in size. No hypothalamic or pineal region mass. Central vascular flow-voids appear unremarkable. The internal auditory canals and inner ear structures appear unremarkable. Small amount of secretions are seen in the maxillary sinuses, and a small mucus retention cyst in the right maxillary sinus is also noted. IMPRESSION: 1. No evidence of metastasis. 2. Extensive white matter lesions are likely secondary to chronic microvascular ischemic changes. 3. Prominence of the lateral ventricles are favored to be secondary to age-related atrophy and ex vacuo dilatation from brain volume loss, probably without element of normal pressure hydrocephalus. Correlate clinically. Dictated by: Dictated on workstation # [id number]
[2017-03-17 16:19] VITALS: BP 91/55
--- OUTSIDE RECORDS SUMMARY | 2017-03-17 17:15 | XMS REPORT | Continuity of Care Document ---
Demographics Preferred Language Unknown Marital Status Unknown Sikhism Affiliation Unknown Race Unknown Ethnic Group Unknown Author Author [facility] Address Unknown Phone Unavailable Allergies Active Description Code Type Severity Reaction Onset Reported/Identified Relationship to Patient Clinical Status Yes ENVIRONMENTAL ENVIRONMENTAL Mild N/A 03/02/2012 Yes No Known Drug Allergies [id number] Drug Allergy Unknown N/ A 04/09/2016 Medications [...] NORBERT GIBBS, RABIA Cai Ot Z79.899 OTHER BOX TOE STITCHER (CURRENT) DRUG THERAPY 08/06/1056 NORBERT GIBBS, RABIA [...] ARAUJO MD Ot V45.89 06/15/2015 LUCAS RAHMAN TERMITE EXTERMINATOR Ot 305.1 06/15/2015 LUCAS RAHMAN TERMITE EXTERMINATOR Ot 564.00 06/15/2015 LUCAS RAHMAN TERMITE EXTERMINATOR Ot 786.2 06/15/2015 LUCAS RAHMAN TERMITE EXTERMINATOR Ot 787.02 06/15/2015 SARAVANAN GIBBS, LINDSEY Castrejon [...] K63.5 POLYP OF COLON 07/10/2015 EDILBERTO MOULTON PHOSPHORIC ACID SUPERVISOR Ot J90 07/10/2015 EDILBERTO MOULTON APRN Ot [...] ALLEN Rojas Ot V45.89 07/23/2015 LUCAS RAHMAN [facility] Ot 305.1 07/23/2015 LUCAS RAHMAN TERMITE EXTERMINATOR Ot 564.00 07/23/2015 LUCAS RAHMAN TERMITE EXTERMINATOR Ot 786.2 07/23/2015 LUCAS RAHMAN TERMITE EXTERMINATOR Ot 787.02 07/23/2015 SARAVANAN GIBBS, LINDSEY Castrejon [...] GIBBS, RABIA Cai Ot Z79.899 07/23/2015 NORBERT GIBBS, RABIA Cai Ot Z85.46 07/23/2015 EDILBERTO MOULTON PHOSPHORIC ACID SUPERVISOR Ot J90 07/23/2015 EDILBERTO MOULTON PHOSPHORIC ACID SUPERVISOR Ot K59.00 07/23/2015 MARIELA GIBBS, BRAYAN Heredia [...] ALLEN Rojas Ot V45.89 07/23/2015 LUCAS RAHMAN TERMITE EXTERMINATOR Ot 305.1 07/23/2015 LUCAS RAHMAN TERMITE EXTERMINATOR Ot 564.00 07/23/2015 LUCAS RAHMAN TERMITE EXTERMINATOR Ot 786.2 07/23/2015 LUCAS RAHMAN TERMITE EXTERMINATOR Ot 787.02 07/23/2015 SARAVANAN GIBBS, LINDSEY Castrejon [...] RABIA K Ot Z85.46 07/23/2015 EDILBERTO MOULTON PHOSPHORIC ACID SUPERVISOR Ot J90 07/23/2015 EDILBERTO MOULTON PHOSPHORIC ACID SUPERVISOR Ot K59.00 07/23/2015 MARIELA GIBBS, BRAYAN M [...] RABIA K Ot Z85.46 07/23/2015 EDILBERTO MOULTON PHOSPHORIC ACID SUPERVISOR Ot J90 07/23/2015 EDILBERTO MOULTON PHOSPHORIC ACID SUPERVISOR Ot K59.00 07/23/2015 GAYLE GIBBS, ALLEN A [...] ALLEN Rojas Ot E888.9 07/31/2015 EDILBERTO MOULTON PHOSPHORIC ACID SUPERVISOR Ot J90 07/31/2015 EDILBERTO MOULTON PHOSPHORIC ACID SUPERVISOR Ot K59.00 08/08/2015 NORBERT GIBBS, RABIA Cai [...] ALLEN Rojas Ot V45.89 09/13/2015 LUCAS RAHMAN TERMITE EXTERMINATOR Ot 305.1 09/13/2015 LUCAS RAHMAN TERMITE EXTERMINATOR Ot 564.00 09/13/2015 LUCAS RAHMAN TERMITE EXTERMINATOR Ot 786.2 09/13/2015 LUCAS RAHMAN TERMITE EXTERMINATOR Ot 787.02 09/13/2015 SARAVANAN GIBBS, LINDSEY Castrejon [...] RABIA Cai Ot Z85.46 09/13/2015 EDILBERTO MOULTON PHOSPHORIC ACID SUPERVISOR Ot J90 09/13/2015 EDILBERTO MOULTON APRN Ot [...] NORBERT GIBBS, RABIA Cai Ot Z79.899 OTHER HALF-WAY (CURRENT) DRUG THERAPY 09/19/2015 NORBERT GIBBS, RABIA Cai Ot Z85.46 PERSONAL HISTORY OF MALIGNANT NEOPLASM O 09/19/2015 NORBERT GIBBS, RABIA Cai Ot F17.210 09/19/2015 NORBERT GIBBS, RABIA Cai Ot J91.0 09/19/2015 NORBERT GIBBS, RABIA Cai Ot K59.00 09/19/2015 NORBERT GIBBS, RABIA Cai Ot M19.90 09/19/2015 NORBERT GIBBS, RABIA Cia Ot M48.06 09/19/2015 NORBERT GIBBS, RABIA Cai [...] RABIA Cai Ot Z79.899 10/31/2015 NORBERT GIBBS, RABIA Cai Ot Z85.46 11/02/2015 NOREBRT GIBBS, RABIA Cai Ot F17.210 11/02/2015 NORBERT [...] 12/26/2015 RABIA TOUSSAINT MD Ot Z79.899 OTHER BOX TOE STITCHER (CURRENT) DRUG THERAPY 12/26/2015 RABIA TOUSSAINT MD Ot Z85.46 PERSONAL HISTORY OF MALIGNANT NEOPLASM O 12/27/2015 RABIA TOSUSAINT MD Ot F17.210 NICOTINE DEPENDENCE, CIGARETTES, UNCOMPL [...] 01/01/2016 RABIA TOUSSAINT MD Ot Z79.899 OTHER HALF-WAY (CURRENT) DRUG THERAPY 01/01/2016 RABIA TOUSSAINT MD [...] 01/08/2016 RABIA TOUSSAINT MD Ot Z79.899 OTHER HALF-WAY (CURRENT) DRUG THERAPY 01/08/2016 RABIA TOUSSAINT MD [...] 01/09/2016 RABIA TOUSSAINT MD Ot Z79.899 OTHER HALF-WAY (CURRENT) DRUG THERAPY 01/09/2016 RABIA TOUSSAINT MD [...] 01/30/2016 RABIA TOUSSAINT MD Ot Z79.899 OTHER BOX TOE STITCHER (CURRENT) DRUG THERAPY 01/30/2016 RABIA TOUSSAINT MD [...] OF MALIGNANT NEOPLASM O 03/14/2016 POOJA SHAW TERMITE EXTERMINATOR Ot 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 OF LOWER LOBE, LEFT B 03/14/2016 POOJA SHAW TERMITE EXTERMINATOR Ot F17.210 NICOTINE DEPENDENCE, CIGARETTES, UNCOMPL 03/14/2016 POOJA SHAW TERMITE EXTERMINATOR Ot 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 03/14/2016 POOJA SHAW TERMITE EXTERMINATOR Ot K59.00 CONSTIPATION, UNSPECIFIED 03/14/2016 POOJA SHAW TERMITE EXTERMINATOR Ot M19.90 UNSPECIFIED OSTEOARTHRITIS, UNSPECIFIED 03/14/2016 POOJA SHAW S TERMITE EXTERMINATOR Ot M48.06 SPINAL STENOSIS, LUMBAR REGION 03/14/2016 POOJA SHAW S TERMITE EXTERMINATOR Ot R91.8 OTHER NONSPECIFIC ABNORMAL FINDING OF TAMAR 03/14/2016 POOJA SHAW TERMITE EXTERMINATOR Ot Z79.899 OTHER BOX TOE STITCHER (CURRENT) DRUG THERAPY 03/14/2016 POOJA SHAW TERMITE EXTERMINATOR Ot Z85.46 PERSONAL HISTORY OF MALIGNANT NEOPLASM O 04/06/2016 RABIA TOUSSAINT MD Ot 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 OF LOWER LOBE, LEFT B 04/06/2016 RAIBA TOUSSAINT MD Ot F17.210 NICOTINE DEPENDENCE, CIGARETTES, UNCOMPL 04/06/2016 RABIA TOUSSAINT MD Ot 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 04/06/2016 RABIA TOUSSAINT MD Ot K59.00 CONSTIPATION, UNSPECIFIED 04/06/2016 RABIA TOUSSAINT MD Ot M19.90 UNSPECIFIED OSTEOARTHRITIS, UNSPECIFIED 04/06/2016 RABIA TOUSSAINT MD Ot M48.06 SPINAL STENOSIS, LUMBAR REGION 04/06/2016 RABIA TOUSSAINT MD Ot R91.8 OTHER NONSPECIFIC ABNORMAL FINDING OF TAMAR 04/06/2016 RABIA TOUSSAINT MD Ot Z51.11 ENCOUNTER FOR ANTINEOPLASTIC CHEMOTHERAP 04/06/2016 RABIA TOUSSAINT MD Ot Z79.899 OTHER BOX TOE STITCHER (CURRENT) DRUG THERAPY 04/06/2016 RABIA TOUSSAINT MD [...] 04/07/2016 RABIA TOUSSAINT MD Ot Z79.899 OTHER BOX TOE STITCHER (CURRENT) DRUG THERAPY 04/07/2016 RABIA TOUSSAINT MD [...] 04/08/2016 RABIA TOUSSAINT MD Ot Z79.899 OTHER BOX TOE STITCHER (CURRENT) DRUG THERAPY 04/08/2016 RABIA TOUSSAINT MD [...] 04/10/2016 RABIA TOUSSAINT MD Ot Z79.899 OTHER BOX TOE STITCHER (CURRENT) DRUG THERAPY 04/10/2016 RABIA TOUSSAINT MD [...] V45.89 POSTSURGICAL STATES NEC 04/16/2016 LACEYLUCAS Giovanna TERMITE EXTERMINATOR Ot 305.1 TOBACCO USE DISORDER 04/16/2016 LACEYLUCAS Giovanna TERMITE EXTERMINATOR Ot 564.00 UNSPEC CONSTIPATION 04/16/2016 RAHMANLUCAS Giovanna TERMITE EXTERMINATOR Ot 786.2 COUGH 04/16/2016 RAHMANLUCAS Giovanna TERMITE EXTERMINATOR Ot 787.02 NAUSEA ALONE 04/16/2016 SARAVANAN GIBBS, [...] 04/16/2016 RADHA ALANIZ MD Ot Z79.899 OTHER BOX TOE STITCHER (CURRENT) DRUG THERAPY 04/16/2016 RADHA ALANIZ MD Ot Z85.46 PERSONAL HISTORY OF MALIGNANT NEOPLASM O 04/16/2016 RADHA ALANIZ MD Ot 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 OF LOWER LOBE, LEFT B 04/16/2016 NORBERT GIBBS, RABIA Cai Ot 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 OF LOWER LOBE, LEFT B 04/16/2016 MANUEL ADLER Ot I95.9 HYPOTENSION, UNSPECIFIED 04/16/2016 MANUEL ADLER Ot R42 DIZZINESS AND GIDDINESS 04/16/2016 POOJA SHAW TERMITE EXTERMINATOR Ot 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 OF LOWER LOBE, LEFT B 04/16/2016 POOJA SHAW TERMITE EXTERMINATOR Ot F17.210 NICOTINE DEPENDENCE, CIGARETTES, UNCOMPL 04/16/2016 POOJA SHAW TERMITE EXTERMINATOR Ot 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 04/16/2016 POOJA SHAW TERMITE EXTERMINATOR Ot K59.00 CONSTIPATION, UNSPECIFIED 04/16/2016 POOJA SHAW TERMITE EXTERMINATOR Ot M19.90 UNSPECIFIED OSTEOARTHRITIS, UNSPECIFIED 04/16/2016 POOJA SHAW TERMITE EXTERMINATOR Ot M48.06 SPINAL STENOSIS, LUMBAR REGION 04/16/2016 POOJA SHAW TERMITE EXTERMINATOR Ot R91.8 OTHER NONSPECIFIC ABNORMAL FINDING OF TAMAR 04/16/2016 POOJA SHAW TERMITE EXTERMINATOR Ot Z79.899 OTHER HALF-WAY (CURRENT) DRUG THERAPY 04/16/2016 POOJA SHAW TERMITE EXTERMINATOR Ot Z85.46 PERSONAL HISTORY OF MALIGNANT NEOPLASM O 04/16/2016 POOJA SHAW TERMITE EXTERMINATOR Ot 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 OF LOWER LOBE, [...] 04/16/2016 RABIA TOUSSAINT MD Ot Z79.899 OTHER BOX TOE STITCHER (CURRENT) DRUG THERAPY 04/16/2016 RABIA TOUSSAINT MD Ot Z85.46 PERSONAL HISTORY OF MALIGNANT NEOPLASM O 04/17/2016 POOJA SHAW TERMITE EXTERMINATOR Ot 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 OF LOWER LOBE, LEFT B 04/17/2016 POOJA SHAW TERMITE EXTERMINATOR Ot F17.210 NICOTINE DEPENDENCE, CIGARETTES, UNCOMPL 04/17/2016 COLIN POOJA Arteaga TERMITE EXTERMINATOR Ot 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06 SPINAL STENOSIS, LUMBAR REGION 04/29/2016 RAIBA TOUSSAINT MD Ot R26.2 DIFFICULTY IN WALKING, NOT ELSEWHERE CLA 04/29/2016 RABIA TOUSSAINT MD Ot R41.82 ALTERED MENTAL STATUS, UNSPECIFIED 04/29/2016 RABIA TOUSSAINT MD Ot R53.1 WEAKNESS 05/23/2016 RABIA TOUSSAINT MD, Ot 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 OF LOWER LOBE, LEFT B 05/23/2016 RABIA TOUSSAINT MD, Ot F17.210 NICOTINE DEPENDENCE, [...] 05/23/2016 RABIA TOUSSAINT MD Ot Z79.899 OTHER BOX TOE STITCHER (CURRENT) DRUG THERAPY 05/23/2016 RABIA TOUSSAINT MD [...] 05/25/2016 RABIA TOUSSAINT MD Ot Z79.899 OTHER BOX TOE STITCHER (CURRENT) DRUG THERAPY 05/25/2016 RABIA TOUSSAINT MD Ot Z85.46 PERSONAL HISTORY OF MALIGNANT NEOPLASM O 05/30/2016 GAYLE GIBBS, ALLEN A Ot E83.42 HYPOMAGNESEMIA 05/30/2016 GAYLE GIBBS, LALEN A Ot E87.6 HYPOKALEMIA 06/04/2016 GAYLE GIBBS, [...] 06/05/2016 RABIA TOUSSAINT MD Ot Z79.899 OTHER BOX TOE STITCHER (CURRENT) DRUG THERAPY 06/05/2016 RABIA TOUSSAINT MD Ot Z85.46 PERSONAL HISTORY OF MALIGNANT NEOPLASM O 06/09/2016 RABIA TOUSSAINT MD Ot 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 OF LOWER LOBE, LEFT B 06/09/2016 RABIA TOUSSAINT MD Ot F17.210 NICOTINE DEPENDENCE, CIGARETTES, UNCOMPL 06/09/2016 RABIA TOUSSAINT MD Ot G89.4 CHRONIC PAIN SYNDROME 06/09/2016 RABAI TOUSSAINT MD Ot 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 [...] 06/09/2016 RABIA TOUSSAINT MD Ot Z79.899 OTHER BOX TOE STITCHER (CURRENT) DRUG THERAPY 06/09/2016 RABIA TOUSSAINT MD [...] 06/16/2016 RABIA TOUSSAINT MD Ot Z79.899 OTHER BOX TOE STITCHER (CURRENT) DRUG THERAPY 06/16/2016 RABIA TOUSSAINT MD Ot Z85.46 PERSONAL HISTORY OF MALIGNANT NEOPLASM O 06/19/2016 ALLEN ARAUJO MD Ot E83.42 HYPOMAGNESEMIA 06/19/2016 ALLEN ARAUJO MD Ot E87.6 HYPOKALEMIA 07/03/2016 RABIA TOUSSAINT [...] NORBERT GIBBS RABIA Trell Ot Z79.899 OTHER HALF-WAY (CURRENT) DRUG THERAPY 07/03/2016 NORBERT GIBBS RABIA [...] V45.89 POSTSURGICAL STATES NEC 07/09/2016 LUCAS RAHMAN TERMITE EXTERMINATOR Ot 305.1 TOBACCO USE DISORDER 07/09/2016 LUCAS RAHMAN TERMITE EXTERMINATOR Ot 564.00 UNSPEC CONSTIPATION 07/09/2016 LUCAS RAHMAN TERMITE EXTERMINATOR Ot 786.2 COUGH 07/09/2016 LUCAS RAHMAN TERMITE EXTERMINATOR Ot 787.02 NAUSEA ALONE 07/09/2016 SARAVANAN GIBBS, [...] 07/09/2016 RADHA ALANIZ MD Ot Z79.899 OTHER HALF-WAY (CURRENT) DRUG THERAPY 07/09/2016 RADHA ALANIZ MD [...] NICOTINE DEPENDENCE, CIGARETTES, UNCOMPL 07/09/2016 POOJA SHAW TERMITE EXTERMINATOR Ot 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 07/09/2016 POOJA SHAWP Ot K59.00 CONSTIPATION, UNSPECIFIED 07/09/2016 POOJA SHAWP Ot M19.90 UNSPECIFIED OSTEOARTHRITIS, UNSPECIFIED 07/09/2016 POOJA SHAW TERMITE EXTERMINATOR Ot M48.06 SPINAL STENOSIS, LUMBAR REGION 07/09/2016 POOJA SHAW TERMITE EXTERMINATOR Ot R91.8 OTHER NONSPECIFIC ABNORMAL FINDING OF TAMAR 07/09/2016 POOJA SHAW TERMITE EXTERMINATOR Ot Z79.899 OTHER BOX TOE STITCHER (CURRENT) DRUG THERAPY 07/09/2016 POOJA SHAW TERMITE EXTERMINATOR Ot Z85.46 PERSONAL HISTORY OF MALIGNANT NEOPLASM O 07/09/2016 POOJA SHAW TERMITE EXTERMINATOR Ot 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 OF LOWER LOBE, [...] 08/06/2016 RABIA TOUSSAINT MD Ot Z79.899 OTHER BOX TOE STITCHER (CURRENT) DRUG THERAPY 08/06/2016 RABIA TOUSSAINT MD [...] V45.89 POSTSURGICAL STATES NEC 09/04/2016 LUCAS RAHMAN TERMITE EXTERMINATOR Ot 305.1 TOBACCO USE DISORDER 09/04/2016 LUCAS RAHMAN TERMITE EXTERMINATOR Ot 564.00 UNSPEC CONSTIPATION 09/04/2016 LUCAS RAHMAN TERMITE EXTERMINATOR Ot 786.2 COUGH 09/04/2016 LUCAS RAHMAN TERMITE EXTERMINATOR Ot 787.02 NAUSEA ALONE 09/04/2016 SARAVANAN GIBBS, LINDSEY Castrejon Ot 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-LUMBAR 09/04/2016 SARAVANAN GIBBS, LINDSEY Castrejon Ot 724.02 SPINAL STENOSIS, LUMBAR REG, W/OUT NEURO 09/04/2016 ALLEN ARAUJO MD Ot 959.01 HEAD INJURY, NOS 09/04/2016 ALLEN ARAUJO MD Ot E000.8 OTHER EXTERNAL CAUSE STATUS 09/04/2016 ALLEN ARAUJO MD Ot E888.9 FALL NOS 09/04/2016 EDILBERTO MOULTON PHOSPHORIC ACID SUPERVISOR Ot J90 PLEURAL EFFUSION, NOT ELSEWHERE CLASSIFI 09/04/2016 EDILBERTO MOULTON PHOSPHORIC ACID SUPERVISOR Ot K59.00 CONSTIPATION, UNSPECIFIED 09/04/2016 BRAYAN SIERRA [...] 09/04/2016 RADHA ALANIZ MD Ot Z79.899 OTHER BOX TOE STITCHER (CURRENT) DRUG THERAPY 09/04/2016 RADHA ALANIZ MD Ot Z85.46 PERSONAL HISTORY OF MALIGNANT NEOPLASM O 09/04/2016 RADHA AALNIZ MD Ot 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 OF LOWER LOBE, LEFT B 09/04/2016 RABIA TOUSSAINT MD Ot 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 OF LOWER LOBE, LEFT B 09/04/2016 MANUEL ADLER Ot I95.9 HYPOTENSION, UNSPECIFIED 09/04/2016 MANUEL ADLER Ot R42 DIZZINESS AND GIDDINESS 09/04/2016 POOJA SHAWP Ot 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 OF LOWER LOBE, LEFT B 09/04/2016 POOJA SHAW Ot F17.210 NICOTINE DEPENDENCE, CIGARETTES, UNCOMPL 09/04/2016 POOJA SHAW TERMITE EXTERMINATOR Ot 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 09/04/2016 POOJA SHAW TERMITE EXTERMINATOR Ot K59.00 CONSTIPATION, UNSPECIFIED 09/04/2016 POOJA SHAWP Ot M19.90 UNSPECIFIED OSTEOARTHRITIS, UNSPECIFIED 09/04/2016 POOJA SHAW TERMITE EXTERMINATOR Ot M48.06 SPINAL STENOSIS, LUMBAR REGION 09/04/2016 POOJA SHAW TERMITE EXTERMINATOR Ot R91.8 OTHER NONSPECIFIC ABNORMAL FINDING OF TAMAR 09/04/2016 POOJA SHAW TERMITE EXTERMINATOR Ot Z79.899 OTHER HALF-WAY (CURRENT) DRUG THERAPY 09/04/2016 POOJA SHAW TERMITE EXTERMINATOR Ot Z85.46 PERSONAL HISTORY OF MALIGNANT NEOPLASM O 09/04/2016 POOJA SHAW TERMITE EXTERMINATOR Ot 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 OF LOWER LOBE, LEFT B 09/04/2016 GAYLE GIBBS, ALLEN Rojas Ot E83.42 HYPOMAGNESEMIA 09/04/2016 GAYLE GIBBS, ALLEN Rojas Ot E87.6 HYPOKALEMIA 09/04/2016 RABIA TOUSSAINT MD Ot F17.210 NICOTINE DEPENDENCE, CIGARETTES, UNCOMPL 09/04/2016 RABIA TOUSSAINT MD Ot 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 09/04/2016 RABIA TOUSSAINT MD Ot K59.00 CONSTIPATION, UNSPECIFIED 09/04/2016 RABIA TOUSSAINT MD Ot M19.90 UNSPECIFIED OSTEOARTHRITIS, UNSPECIFIED 09/04/2016 RABIA TOUSSAINT MD Ot M48.06 SPINAL STENOSIS, LUMBAR REGION 09/04/2016 RABIA TOUSSAINT MD Ot R91.8 OTHER NONSPECIFIC ABNORMAL FINDING OF TAMAR 09/04/2016 RABIA TOUSSAINT MD Ot Z79.899 OTHER BOX TOE STITCHER (CURRENT) DRUG THERAPY 09/04/2016 RABIA TOUSSAINT MD [...] OF COORDINATION 09/11/2016 RABIA TOUSSAINT MD Ot 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 OF LOWER LOBE, LEFT B 09/11/2016 RABIA TOUSSAINT MD Ot E83.42 HYPOMAGNESEMIA 09/11/2016 RABIA TOUSSAINT MD Ot F17.210 NICOTINE [...] 09/12/2016 RABIA TOUSSAINT MD Ot Z79.899 OTHER HALF-WAY (CURRENT) DRUG THERAPY 09/12/2016 RABIA TOUSSAINT MD [...] 09/19/2016 RABIA TOUSSAINT MD Ot Z79.899 OTHER BOX TOE STITCHER (CURRENT) DRUG THERAPY 09/19/2016 RABIA TOUSSAINT MD [...] 10/02/2016 RABIA TOUSSAINT MD Ot Z79.899 OTHER BOX TOE STITCHER (CURRENT) DRUG THERAPY 10/02/2016 RABIA TOUSSAINT MD Ot Z85.46 PERSONAL HISTORY OF MALIGNANT NEOPLASM O 10/24/2016 RABIA TOUSSAINT MD Ot 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 OF LOWER LOBE, LEFT B 10/24/2016 RABIA TOUSSAINT MD Ot J98.4 OTHER DISORDERS OF LUNG 10/24/2016 RABIA TOUSSAINT MD Ot Z72.0 TOBACCO USE 10/30/2016 RABIA TOUSSAINT MD Ot F17.210 NICOTINE DEPENDENCE, CIGARETTES, UNCOMPL 10/30/2016 RABIA TOUSSAINT MD Ot 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 10/30/2016 RABIA TOUSSAINT MD Ot K59.00 CONSTIPATION, UNSPECIFIED 10/30/2016 RABIA TOUSSAINT MD Ot M19.90 UNSPECIFIED OSTEOARTHRITIS, UNSPECIFIED 10/30/2016 RABIA TOUSSAINT MD Ot M48.06 SPINAL STENOSIS, LUMBAR REGION 10/30/2016 RABIA TOUSSAINT MD Ot R91.8 OTHER NONSPECIFIC ABNORMAL FINDING OF TAMAR 10/30/2016 RABIA TOUSSAINT MD Ot Z79.899 OTHER BOX TOE STITCHER (CURRENT) DRUG THERAPY 10/30/2016 RABIA TOUSSAINT MD Ot Z85.46 PERSONAL HISTORY OF MALIGNANT NEOPLASM O 11/27/2016 RABIA TOUSSAINT MD Ot F17.210 NICOTINE DEPENDENCE, CIGARETTES, UNCOMPL 11/27/2016 RABIA TOUSSAINT MD Ot 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 11/27/2016 RABIA TOUSSAINT MD Ot K59.00 CONSTIPATION, UNSPECIFIED 11/27/2016 RABIA TOUSSAINT MD Ot M19.90 UNSPECIFIED OSTEOARTHRITIS, UNSPECIFIED 11/27/2016 RABIA TOUSSAINT MD Ot M48.06 SPINAL STENOSIS, LUMBAR REGION 11/27/2016 RABIA TOUSSAINT MD Ot R91.8 OTHER NONSPECIFIC ABNORMAL FINDING OF TAMAR 11/27/2016 RABIA TOUSSAINT MD Ot Z79.899 OTHER BOX TOE STITCHER (CURRENT) DRUG THERAPY 11/27/2016 RABIA TOUSSAINT MD Ot Z85.46 PERSONAL HISTORY OF MALIGNANT NEOPLASM O 11/27/2016 RABIA TOUSSAINT MD Ot 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 OF LOWER LOBE, LEFT B 11/27/2016 RABIA TOUSSAINT MD Ot E83.42 HYPOMAGNESEMIA 11/27/2016 RABIA TOUSSAINT MD Ot F17.210 NICOTINE DEPENDENCE, CIGARETTES, UNCOMPL 11/27/2016 RABIA TOUSSAINT MD Ot 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 11/27/2016 RABIA TOUSSAINT MD Ot K59.00 CONSTIPATION, UNSPECIFIED 11/27/2016 RABIA TOUSSAINT MD Ot M19.90 UNSPECIFIED OSTEOARTHRITIS, UNSPECIFIED 11/27/2016 RABIA TOUSSAINT MD Ot M48.06 SPINAL STENOSIS, LUMBAR REGION 11/27/2016 RABIA TOUSSAINT MD Ot Z51.11 ENCOUNTER FOR ANTINEOPLASTIC CHEMOTHERAP 11/27/2016 RABIA TOUSSAINT MD Ot Z79.899 OTHER BOX TOE STITCHER (CURRENT) DRUG THERAPY 11/27/2016 RABIA TOUSSAINT MD Ot Z85.46 PERSONAL HISTORY OF MALIGNANT NEOPLASM O 12/01/2016 RABIA TOUSSAINT MD Ot 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 OF LOWER LOBE, LEFT B 12/01/2016 RABIA TOUSSAINT MD Ot J98.4 OTHER DISORDERS OF LUNG 12/01/2016 RABIA TOUSSAINT MD Ot Z72.0 TOBACCO USE 12/17/2016 RABIA TOUSSAINT MD Ot 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 OF LOWER LOBE, LEFT B 12/17/2016 RABIA TOUSSAINT MD Ot E83.42 HYPOMAGNESEMIA 12/17/2016 RABIA TOUSSAINT MD Ot F17.210 NICOTINE DEPENDENCE, CIGARETTES, UNCOMPL 12/17/2016 RABIA TOUSSAINT MD Ot 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 12/17/2016 RABIA TOUSSAINT MD Ot K59.00 CONSTIPATION, UNSPECIFIED 12/17/2016 RABIA TOUSSAINT MD Ot M19.90 UNSPECIFIED OSTEOARTHRITIS, UNSPECIFIED 12/17/2016 RABIA TOUSSAINT MD Ot M48.06 SPINAL STENOSIS, LUMBAR REGION 12/17/2016 RABIA TOUSSAINT MD Ot R91.8 OTHER NONSPECIFIC ABNORMAL FINDING OF TAMAR 12/17/2016 RABIA TOUSSAINT MD Ot Z51.11 ENCOUNTER FOR ANTINEOPLASTIC CHEMOTHERAP 12/17/2016 RABIA TOUSSAINT MD Ot Z79.899 OTHER BOX TOE STITCHER (CURRENT) DRUG THERAPY 12/17/2016 RABIA TOUSSAINT MD Ot Z85.46 PERSONAL HISTORY OF MALIGNANT NEOPLASM O 12/18/2016 RABIA TOUSSAINT MD Ot F17.210 NICOTINE DEPENDENCE, CIGARETTES, UNCOMPL 12/18/2016 RABIA TOUSSAINT MD Ot 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 12/18/2016 RABIA TOUSSAINT MD Ot K59.00 CONSTIPATION, UNSPECIFIED 12/18/2016 RABIA TOUSSAINT MD Ot M19.90 UNSPECIFIED OSTEOARTHRITIS, UNSPECIFIED 12/18/2016 RABIA TOUSSAINT MD Ot M48.06 SPINAL STENOSIS, LUMBAR REGION 12/18/2016 RABIA TOUSSAINT MD Ot R91.8 OTHER NONSPECIFIC ABNORMAL FINDING OF TAMAR 12/18/2016 RABIA TOUSSAINT MD Ot Z51.11 ENCOUNTER FOR ANTINEOPLASTIC CHEMOTHERAP 12/18/2016 RABIA TOUSSAINT MD Ot Z79.899 OTHER HALF-WAY (CURRENT) DRUG THERAPY 12/18/2016 RABIA TOUSSAINT MD Ot Z85.46 PERSONAL HISTORY OF MALIGNANT NEOPLASM O 12/19/2016 RABIA TOUSSAINT MD Ot F17.210 NICOTINE DEPENDENCE, CIGARETTES, UNCOMPL 12/19/2016 RABIA TOUSSAINT MD Ot 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 12/19/2016 RABIA TOUSSAINT MD Ot K59.00 CONSTIPATION, UNSPECIFIED 12/19/2016 RABIA TOUSSAINT MD Ot M19.90 UNSPECIFIED OSTEOARTHRITIS, UNSPECIFIED 12/19/2016 RABIA TOUSSAINT MD Ot M48.06 SPINAL STENOSIS, LUMBAR REGION 12/19/2016 RABIA TOUSSAINT MD Ot R91.8 OTHER NONSPECIFIC ABNORMAL FINDING OF TAMAR 12/19/2016 RABIA TOUSSAINT MD Ot Z79.899 OTHER HALF-WAY (CURRENT) DRUG THERAPY 12/19/2016 RABIA TOUSSAINT MD Ot Z85.46 PERSONAL HISTORY OF MALIGNANT NEOPLASM O 12/24/2016 RABIA TOUSSAINT MD Ot F17.210 NICOTINE DEPENDENCE, CIGARETTES, UNCOMPL 12/24/2016 RABIA TOUSSAINT MD Ot 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 12/24/2016 RABIA TOUSSAINT MD Ot K59.00 CONSTIPATION, UNSPECIFIED 12/24/2016 RABIA TOUSSAINT MD Ot M19.90 UNSPECIFIED OSTEOARTHRITIS, UNSPECIFIED 12/24/2016 RAIBA TOUSSAINT MD Ot M48.06 SPINAL STENOSIS, LUMBAR REGION 12/24/2016 RABIA TOUSSAINT MD Ot R91.8 OTHER NONSPECIFIC ABNORMAL FINDING OF TAMAR 12/24/2016 RABIA TOUSSAINT MD Ot Z79.899 OTHER BOX TOE STITCHER (CURRENT) DRUG THERAPY 12/24/2016 RABIA TOUSSAINT MD Ot Z85.46 PERSONAL HISTORY OF MALIGNANT NEOPLASM O 01/21/2017 RABIA TOUSSAINT MD Ot F17.210 NICOTINE DEPENDENCE, CIGARETTES, UNCOMPL 01/21/2017 RABIA TOUSSAINT MD Ot 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 01/21/2017 RABIA TOUSSAINT MD Ot K59.00 CONSTIPATION, UNSPECIFIED 01/21/2017 RABIA TOUSSAINT MD Ot M19.90 UNSPECIFIED OSTEOARTHRITIS, UNSPECIFIED 01/21/2017 RABIA TOUSSAINT MD Ot M48.06 SPINAL STENOSIS, LUMBAR REGION 01/21/2017 RABIA TOUSSAINT MD Ot R91.8 OTHER NONSPECIFIC ABNORMAL FINDING OF TAMAR 01/21/2017 RABIA TOUSSAINT MD Ot Z79.899 OTHER HALF-WAY (CURRENT) DRUG THERAPY 01/21/2017 RABIA TOUSSAINT MD Ot Z85.46 PERSONAL HISTORY OF MALIGNANT NEOPLASM O 01/21/2017 POOJA SHAW TERMITE EXTERMINATOR Ot 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 OF LOWER LOBE, LEFT B 01/26/2017 ALLEN ARAUJO MD Ot C34.90 MALIGNANT NEOPLASM OF UNSP PART OF UNSP 01/26/2017 ALLEN ARAUJO MD Ot F17.210 NICOTINE DEPENDENCE, CIGARETTES, UNCOMPL 01/26/2017 ALLEN ARAUJO MD Ot F41.9 ANXIETY DISORDER, UNSPECIFIED 01/26/2017 ALLEN ARAUJO MD Ot G89.3 NEOPLASM RELATED PAIN (ACUTE) (CHRONIC) 01/26/2017 ALLEN ARAUJO MD, Ot J18.9 PNEUMONIA, UNSPECIFIED ORGANISM 01/26/2017 ALLEN ARAUJO MD, Ot J44.0 CHRONIC OBSTRUCTIVE PULMON DISEASE W ACU 01/26/2017 ALLEN ARAUJO MD, Ot J44.9 CHRONIC OBSTRUCTIVE PULMONARY DISEASE, U 01/26/2017 ALLEN ARAUJO MD Ot M19.91 PRIMARY OSTEOARTHRITIS, UNSPECIFIED SITE 01/26/2017 ALLEN ARAUJO MD Ot M54.9 DORSALGIA, UNSPECIFIED 01/26/2017 ALLEN ARAUJO MD Ot R50.9 FEVER, UNSPECIFIED 01/26/2017 ALLEN ARAUJO MD Ot Z79.899 OTHER HALF-WAY (CURRENT) DRUG THERAPY 02/24/2017 RABIA TOUSSAINT MD Ot F17.210 NICOTINE DEPENDENCE, CIGARETTES, UNCOMPL 02/24/2017 RABIA TOUSSAINT MD Ot 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 02/24/2017 RABIA TOUSSAINT MD Ot K59.00 CONSTIPATION, UNSPECIFIED 02/24/2017 RABIA TOUSSAINT MD Ot M19.90 UNSPECIFIED OSTEOARTHRITIS, UNSPECIFIED 02/24/2017 RABIA TOUSSAINT MD Ot M48.06 SPINAL STENOSIS, LUMBAR REGION 02/24/2017 NROBERT GIBBS, RABIA Cai Ot R91.8 OTHER NONSPECIFIC ABNORMAL FINDING OF TAMAR 02/24/2017 NORBERT GIBBS, RABIA Cai Ot Z79.899 OTHER HALF-WAY (CURRENT) DRUG THERAPY 02/24/2017 NORBERT GIBBS, RABIA Cai Ot Z85.46 PERSONAL HISTORY OF MALIGNANT NEOPLASM O Procedures Code [place] [address] INDIV PSYTX 45/50 MIN 08/26/2012 84474 PSYTX PT&/FAMILY 45 MINUTES 10/08/2012 [id number] DRAINAGE OF LEFT PLEURAL CAVITY, PERC AP [...] GROWTH Scant Growth NRG Bacterial sputum culture [id number] NR Complete urinalysis with reflex to culture [...] OF GROWTH Isolated NRG Bacterial blood culture [id number] [facility] Bacterial susceptibility panel - 04/16/16 09:31 Oxacillin [...] - 05/29/16 13:27 Magnesium 1.9 mg/dL 1.8-2.4 Complete blood count (CBC) with automated white blood cell (WBC) differential - 01/02/17 11:33 Blood leukocytes automated count (number/volume) 8.7 10*3/ uL 4.3-11.0 Blood erythrocytes automated count (number/volume) 4.49 10*6 /uL 4.35-5.85 Venous blood hemoglobin measurement (mass/volume) 14.7 g/dL 13.3-17.7 Blood hematocrit (volume fraction) 43 % 40-54 Automated erythrocyte mean corpuscular volume 97 [foz_us] 80-99 Automated erythrocyte mean corpuscular hemoglobin (mass per erythrocyte) 33 pg 25-34 Automated erythrocyte mean corpuscular hemoglobin concentration measurement ( mass/volume) 34 g/dL 32-36 Automated erythrocyte distribution width ratio 13.1 % 10.0-14.5 Automated blood platelet count (count/volume) 237 10*3/uL 130-400 Automated blood platelet mean volume measurement 10.5 [foz_ us] 7.4-10.4 Automated blood neutrophils/100 leukocytes 64 % 42-75 Automated blood lymphocytes/100 leukocytes 20 % 12-44 Blood monocytes/100 leukocytes 6 % 0-12 Automated blood eosinophils/100 leukocytes 10 % 0-10 Automated blood basophils/100 leukocytes 1 % 0-10 Blood neutrophils automated count (number/volume) 5.6 10*3 1.8-7.8 Blood lymphocytes automated count (number/volume) 1.7 10*3 1.0-4.0 Blood monocytes automated count (number/volume) 0.5 10*3 0.0-1.0 Automated eosinophil count 0.9 10*3/uL 0.0-0.3 Automated blood basophil count (count/volume) 0.1 10*3/uL 0.0-0.1 Whole blood basic metabolic panel - 01/02/17 11:33 Serum or plasma sodium measurement (moles/volume) 141 mmol/ L 135-145 Serum or plasma potassium measurement (moles/volume) 4.2 mmol/L 3.6-5.0 Serum or plasma chloride measurement (moles/volume) 103 mmol /L 98-107 Carbon dioxide 27 mmol/L 21-32 Serum or plasma anion gap determination (moles/volume) 11 mmol/L 5-14 Serum or plasma urea nitrogen measurement (mass/volume) 10 mg/dL 7-18 Serum or plasma creatinine measurement (mass/volume) 1.20 mg /dL 0.60-1.30 Serum or plasma urea nitrogen/creatinine mass ratio 8 NRG Serum or plasma creatinine measurement with calculation of estimated glomerular filtration rate 60 NRG Serum or plasma glucose measurement (mass/volume) 80 mg/dL 70-105 Serum or plasma calcium measurement (mass/volume) 9.6 mg/dL 8.5-10.1 Complete blood count (CBC) with automated white blood cell (WBC) differential - 01/23/17 14:30 Blood leukocytes automated count (number/volume) 11.0 10*3/ uL 4.3-11.0 Blood erythrocytes automated count (number/volume) 4.28 10*6 /uL 4.35-5.85 Venous blood hemoglobin measurement (mass/volume) 13.9 g/dL 13.3-17.7 Blood hematocrit (volume fraction) 42 % 40-54 Automated erythrocyte mean corpuscular volume 97 [foz_us] 80-99 Automated erythrocyte mean corpuscular hemoglobin (mass per erythrocyte) 33 pg 25-34 Automated erythrocyte mean corpuscular hemoglobin concentration measurement ( mass/volume) 34 g/dL 32-36 Automated erythrocyte distribution width ratio 13.0 % 10.0-14.5 Automated blood platelet count (count/volume) 202 10*3/uL 130-400 Automated blood platelet mean volume measurement 10.2 [foz_ us] 7.4-10.4 Automated blood neutrophils/100 leukocytes 82 % 42-75 Automated blood lymphocytes/100 leukocytes 7 % 12-44 Blood monocytes/100 leukocytes 5 % 0-12 Automated blood eosinophils/100 leukocytes 6 % 0-10 Automated blood basophils/100 leukocytes 0 % 0-10 Blood neutrophils automated count (number/volume) 9.1 10*3 1.8-7.8 Blood lymphocytes automated count (number/volume) 0.8 10*3 1.0-4.0 Blood monocytes automated count (number/volume) 0.6 10*3 0.0-1.0 Automated eosinophil count 0.6 10*3/uL 0.0-0.3 Automated blood basophil count (count/volume) 0.0 10*3/uL 0.0-0.1 PT panel in platelet poor plasma by coagulation assay - 01/23/17 14:30 Prothrombin time (PT) in platelet poor plasma by coagulation assay 13.1 s 12.2-14.7 INR in platelet poor plasma or blood by coagulation assay 1.0 0.8-1.4 Activated partial thromboplastin time (aPTT) in platelet poor plasma bycoagulation assay - 01/23/17 14:30 Activated partial thromboplastin time (aPTT) in platelet poor plasma bycoagulation assay 30 s 24-35 Blood lactic acid measurement (moles/volume) - 01/23/17 14:30 Blood lactic acid measurement (moles/volume) 1.46 mmol/L 0.50-2.00 Blood manual differential performed detection - 01/23/17 14:30 Blood monocytes/100 leukocytes 0 % NRG Manual blood segmented neutrophils/100 leukocytes 82 % NRG Blood band neutrophils/100 leukocytes 0 % NRG Manual blood lymphocytes/100 leukocytes 11 % NRG Manual eosinophils/100 leukocytes in nose 7 % NRG Manual blood basophils/100 leukocytes 0 % [facility] Blood erythrocyte morphology finding identification NORMAL [facility] Comprehensive metabolic panel - 01/23/17 14:30 Serum or plasma sodium measurement (moles/volume) 140 mmol/ L 135-145 Serum or plasma potassium measurement (moles/volume) 3.7 mmol/L 3.6-5.0 Serum or plasma chloride measurement (moles/volume) 104 mmol /L 98-107 Carbon dioxide 27 mmol/L 21-32 Serum or plasma anion gap determination (moles/volume) 9 mmol/L 5-14 Serum or plasma urea nitrogen measurement (mass/volume) 8 mg /dL 7-18 Serum or plasma creatinine measurement (mass/volume) 1.17 mg /dL 0.60-1.30 Serum or plasma urea nitrogen/creatinine mass ratio 7 NRG Serum or plasma creatinine measurement with calculation of estimated glomerular filtration rate > NRG Serum or plasma glucose measurement (mass/volume) 108 mg/dL 70-105 Serum or plasma calcium measurement (mass/volume) 8.8 mg/dL 8.5-10.1 Serum or plasma total bilirubin measurement (mass/volume) 0.4 mg/dL 0.1-1.0 Serum or plasma alkaline phosphatase measurement (enzymatic activity/volume) 64 U/L 40-136 Serum or plasma aspartate aminotransferase measurement (enzymatic activity/ volume) 12 U/L 5-34 Serum or plasma alanine aminotransferase measurement (enzymatic activity/volume ) 9 U/L 0-55 Serum or plasma protein measurement (mass/volume) 6.0 g/dL 6.4-8.2 Serum or plasma albumin measurement (mass/volume) 3.6 g/dL 3.2-4.5 Serum or plasma amylase measurement (enzymatic activity/volume) - 01/23/17 14: 30 Serum or plasma amylase measurement (enzymatic activity/volume) 47 U/L 25-125 Lipase - 01/23/17 14:30 Lipase 12 U/L 8-78 Bacterial blood culture - 01/23/17 14:30 Bacterial blood culture NG [facility] Bacterial blood culture - 01/23/17 15:21 Bacterial blood culture NG [facility] Complete urinalysis with reflex to culture - 01/23/17 17:05 Urine color determination YELLOW NR Urine clarity determination SLIGHTLY CLOUDY [facility] Urine pH measurement by test strip 7 5- 9 Specific gravity of urine by test strip 1.010 1.016-1.022 Urine protein assay by test strip, semi-quantitative NEGATIVE NEGATIVE Urine glucose detection by automated test strip NEGATIVE NEGATIVE Erythrocytes detection in urine sediment by light microscopy 3+ NEGATIVE Urine ketones detection by automated test [...] count by microscopy (number/high power field ) RARE NRG Bacteria detection in urine sediment by light microscopy NEGATIVE NRG Crystals detection in urine sediment by light microscopy NONE NRG Casts detection in urine sediment by light microscopy NONE NRG Mucus detection in urine sediment by light microscopy NEGATIVE NRG Complete urinalysis with reflex to culture NO NRG Influenza virus A and B antigen detection - 01/23/17 17:42 FLU RESULT NEGATIVE FOR INFLUENZA A AND B ANTIGENS BY IA NRG Complete blood count (CBC) with automated white blood cell (WBC) differential - 01/24/17 05:55 Blood leukocytes automated count (number/volume) 9.8 10*3/ uL 4.3-11.0 Blood erythrocytes automated count (number/volume) 3.57 10*6 /uL 4.35-5.85 Venous blood hemoglobin measurement (mass/volume) 11.6 g/dL 13.3-17.7 Blood hematocrit (volume fraction) 35 % 40-54 Automated erythrocyte mean corpuscular volume 99 [foz_us] 80-99 Automated erythrocyte mean corpuscular hemoglobin (mass per erythrocyte) 33 pg 25-34 Automated erythrocyte mean corpuscular hemoglobin concentration measurement ( mass/volume) 33 g/dL 32-36 Automated erythrocyte distribution width ratio 13.0 % 10.0-14.5 Automated blood platelet count (count/volume) 172 10*3/uL 130-400 Automated blood platelet mean volume measurement 9.9 [foz_us ] 7.4-10.4 Automated blood neutrophils/100 leukocytes 76 % 42-75 Automated blood lymphocytes/100 leukocytes 12 % 12-44 Blood monocytes/100 leukocytes 6 % 0-12 Automated blood eosinophils/100 leukocytes 6 % 0-10 Automated blood basophils/100 leukocytes 0 % 0-10 Blood neutrophils automated count (number/volume) 7.5 10*3 1.8-7.8 Blood lymphocytes automated count (number/volume) 1.2 10*3 1.0-4.0 Blood monocytes automated count (number/volume) 0.6 10*3 0.0-1.0 Automated eosinophil count 0.6 10*3/uL 0.0-0.3 Automated blood basophil count (count/volume) 0.0 10*3/uL 0.0-0.1 Comprehensive metabolic panel - 01/24/17 05:55 Serum or plasma sodium measurement (moles/volume) 140 mmol/ L 135-145 Serum or plasma potassium measurement (moles/volume) 3.7 mmol/L 3.6-5.0 Serum or plasma chloride measurement (moles/volume) 108 mmol /L 98-107 Carbon dioxide 24 mmol/L 21-32 Serum or plasma anion gap determination (moles/volume) 8 mmol/L 5-14 Serum or plasma urea nitrogen measurement (mass/volume) 10 mg/dL 7-18 Serum or plasma creatinine measurement (mass/volume) 1.03 mg /dL 0.60-1.30 Serum or plasma urea nitrogen/creatinine mass ratio 10 NRG Serum or plasma creatinine measurement with calculation of estimated glomerular filtration rate > NRG Serum or plasma glucose measurement (mass/volume) 102 mg/dL 70-105 Serum or plasma calcium measurement (mass/volume) 8.3 mg/dL 8.5-10.1 Serum or plasma total bilirubin measurement (mass/volume) 0.6 mg/dL 0.1-1.0 Serum or plasma alkaline phosphatase measurement (enzymatic activity/volume) 53 U/L 40-136 Serum or plasma aspartate aminotransferase measurement (enzymatic activity/ volume) 9 U/L 5-34 Serum or plasma alanine aminotransferase measurement (enzymatic activity/volume ) 8 U/L 0-55 Serum or plasma protein measurement (mass/volume) 5.0 g/dL 6.4-8.2 Serum or plasma albumin measurement (mass/volume) 3.0 g/dL 3.2-4.5 Serum or plasma amylase measurement (enzymatic activity/volume) - 01/24/17 05: 55 Serum or plasma amylase measurement (enzymatic activity/volume) 43 U/L 25-125 Lipase - 01/24/17 05:55 Lipase 9 U/L 8-78 Complete blood count (CBC) with automated white blood cell (WBC) differential - 01/25/17 05:40 Blood leukocytes automated count (number/volume) 5.1 10*3/ uL 4.3-11.0 Blood erythrocytes automated count (number/volume) 3.40 10*6 /uL 4.35-5.85 Venous blood hemoglobin measurement (mass/volume) 11.1 g/dL 13.3-17.7 Blood hematocrit (volume fraction) 33 % 40-54 Automated erythrocyte mean corpuscular volume 98 [foz_us] 80-99 Automated erythrocyte mean corpuscular hemoglobin (mass per erythrocyte) 33 pg 25-34 Automated erythrocyte mean corpuscular hemoglobin concentration measurement ( mass/volume) 33 g/dL 32-36 Automated erythrocyte distribution width ratio 12.7 % 10.0-14.5 Automated blood platelet count (count/volume) 166 10*3/uL 130-400 Automated blood platelet mean volume measurement 10.2 [foz_ us] 7.4-10.4 Automated blood neutrophils/100 leukocytes 51 % 42-75 Automated blood lymphocytes/100 leukocytes 22 % 12-44 Blood monocytes/100 leukocytes 9 % 0-12 Automated blood eosinophils/100 leukocytes 18 % 0-10 Automated blood basophils/100 leukocytes 1 % 0-10 Blood neutrophils automated count (number/volume) 2.6 10*3 1.8-7.8 Blood lymphocytes automated count (number/volume) 1.1 10*3 1.0-4.0 Blood monocytes automated count (number/volume) 0.5 10*3 0.0-1.0 Automated eosinophil count 0.9 10*3/uL 0.0-0.3 Automated blood basophil count (count/volume) 0.0 10*3/uL 0.0-0.1 Whole blood basic metabolic panel - 01/25/17 05:40 Serum or plasma sodium measurement (moles/volume) 142 mmol/ L 135-145 Serum or plasma potassium measurement (moles/volume) 3.9 mmol/L 3.6-5.0 Serum or plasma chloride measurement (moles/volume) 111 mmol /L 98-107 Carbon dioxide 23 mmol/L 21-32 Serum or plasma anion gap determination (moles/volume) 8 mmol/L 5-14 Serum or plasma urea nitrogen measurement (mass/volume) 8 mg /dL 7-18 Serum or plasma creatinine measurement (mass/volume) 0.98 mg /dL 0.60-1.30 Serum or plasma urea nitrogen/creatinine mass ratio 8 NRG Serum or plasma creatinine measurement with calculation of estimated glomerular filtration rate > NRG Serum or plasma glucose measurement (mass/volume) 91 mg/dL 70-105 Serum or plasma calcium measurement (mass/volume) 8.5 mg/dL 8.5-10.1 Vancomycin trough - 01/25/17 05:40 Vancomycin trough 14.3 ug/mL 10.0-20.0 Complete blood count (CBC) with automated white blood cell (WBC) differential - 01/26/17 05:25 Blood leukocytes automated count (number/volume) 4.6 10*3/ uL 4.3-11.0 Blood erythrocytes automated count (number/volume) 3.59 10*6 /uL 4.35-5.85 Venous blood hemoglobin measurement (mass/volume) 11.7 g/dL 13.3-17.7 Blood hematocrit (volume fraction) 35 % 40-54 Automated erythrocyte mean corpuscular volume 98 [foz_us] 80-99 Automated erythrocyte mean corpuscular hemoglobin (mass per erythrocyte) 33 pg 25-34 Automated erythrocyte mean corpuscular hemoglobin concentration measurement ( mass/volume) 33 g/dL 32-36 Automated erythrocyte distribution width ratio 12.7 % 10.0-14.5 Automated blood platelet count (count/volume) 178 10*3/uL 130-400 Automated blood platelet mean volume measurement 10.1 [foz_ us] 7.4-10.4 Automated blood neutrophils/100 leukocytes 46 % 42-75 Automated blood lymphocytes/100 leukocytes 25 % 12-44 Blood monocytes/100 leukocytes 7 % 0-12 Automated blood eosinophils/100 leukocytes 22 % 0-10 Automated blood basophils/100 leukocytes 1 % 0-10 Blood neutrophils automated count (number/volume) 2.1 10*3 1.8-7.8 Blood lymphocytes automated count (number/volume) 1.1 10*3 1.0-4.0 Blood monocytes automated count (number/volume) 0.3 10*3 0.0-1.0 Automated eosinophil count 1.0 10*3/uL 0.0-0.3 Automated blood basophil count (count/volume) 0.0 10*3/uL 0.0-0.1 Blood manual differential performed detection - 01/26/17 05:25 Blood monocytes/100 leukocytes 8 % NRG Manual blood segmented neutrophils/100 leukocytes 42 % NRG Blood band neutrophils/100 leukocytes 0 % NR Manual blood lymphocytes/100 leukocytes 28 % NR Manual eosinophils/100 leukocytes in nose 22 % NR Manual blood basophils/100 leukocytes 0 % NR Blood erythrocyte morphology finding identification NORMAL [facility] Whole blood basic metabolic panel - 01/26/17 05:25 Serum or plasma sodium measurement (moles/volume) 142 mmol/ L 135-145 Serum or plasma potassium measurement (moles/volume) 4.1 mmol/L 3.6-5.0 Serum or plasma chloride measurement (moles/volume) 110 mmol /L 98-107 Carbon dioxide 25 mmol/L 21-32 Serum or plasma anion gap determination (moles/volume) 7 mmol/L 5-14 Serum or plasma urea nitrogen measurement (mass/volume) 7 mg /dL 7-18 Serum or plasma creatinine measurement (mass/volume) 0.95 mg /dL 0.60-1.30 Serum or plasma urea nitrogen/creatinine mass ratio 7 NRG Serum or plasma creatinine measurement with calculation of estimated glomerular filtration rate > NRG Serum or plasma glucose measurement (mass/volume) 96 mg/dL 70-105 Serum or plasma calcium measurement (mass/volume) 8.9 mg/dL 8.5-10.1 Complete blood count (CBC) with automated white blood cell (WBC) differential - 02/19/17 13:55 Blood leukocytes automated count (number/volume) 6.9 10*3/ uL 4.3-11.0 Blood erythrocytes automated count (number/volume) 4.15 10*6 /uL 4.35-5.85 Venous blood hemoglobin measurement (mass/volume) 13.5 g/dL 13.3-17.7 Blood hematocrit (volume fraction) 40 % 40-54 Automated erythrocyte mean corpuscular volume 96 [foz_us] 80-99 Automated erythrocyte mean corpuscular hemoglobin (mass per erythrocyte) 33 pg 25-34 Automated erythrocyte mean corpuscular hemoglobin concentration measurement ( mass/volume) 34 g/dL 32-36 Automated erythrocyte distribution width ratio 12.5 % 10.0-14.5 Automated blood platelet count (count/volume) 172 10*3/uL 130-400 Automated blood platelet mean volume measurement 10.8 [foz_ us] 7.4-10.4 Automated blood neutrophils/100 leukocytes 48 % 42-75 Automated blood lymphocytes/100 leukocytes 23 % 12-44 Blood monocytes/100 leukocytes 7 % 0-12 Automated blood eosinophils/100 leukocytes 21 % 0-10 Automated blood basophils/100 leukocytes 2 % 0-10 Blood neutrophils automated count (number/volume) 3.3 10*3 1.8-7.8 Blood lymphocytes automated count (number/volume) 1.6 10*3 1.0-4.0 Blood monocytes automated count (number/volume) 0.5 10*3 0.0-1.0 Automated eosinophil count 1.5 10*3/uL 0.0-0.3 Automated blood basophil count (count/volume) 0.1 10*3/uL 0.0-0.1 Whole blood basic metabolic panel - 02/19/17 13:55 Serum or plasma sodium measurement (moles/volume) 139 mmol/ L 135-145 Serum or plasma potassium measurement (moles/volume) 4.4 mmol/L 3.6-5.0 Serum or plasma chloride measurement (moles/volume) 107 mmol /L 98-107 Carbon dioxide 23 mmol/L 21-32 Serum or plasma anion gap determination (moles/volume) 9 mmol/L 5-14 Serum or plasma urea nitrogen measurement (mass/volume) 12 mg/dL 7-18 Serum or plasma creatinine measurement (mass/volume) 1.40 mg /dL 0.60-1.30 Serum or plasma urea nitrogen/creatinine mass ratio 9 0-20 Serum or plasma creatinine measurement with calculation of estimated glomerular filtration rate 50 NRG Serum or plasma glucose measurement (mass/volume) 105 mg/dL 70-105 Serum or plasma calcium measurement (mass/volume) 9.3 mg/dL 8.5-10.1 Encounters ACCT No. Visit Date/Time Discharge Status Pt. Type Provider Facility Loc./Unit Complaint [id number] 10/05/2012 15:52:00 10/05/2012 23: 59:59 CLS Outpatient [id number] 08/26/2012 10:00:00 08/26/2012 23: 59:59 CLS Outpatient
--- OUTSIDE RECORDS SUMMARY | 2017-03-17 17:22 | XMS REPORT | Continuity of Care Document ---
Demographics Preferred Language Unknown Marital Status Unknown Uatsdin Affiliation Unknown Race Unknown Ethnic Group Unknown Author Author [facility] Address Unknown Phone Unavailable Allergies Active Description Code Type Severity Reaction Onset Reported/Identified Relationship to Patient Clinical Status Yes ENVIRONMENTAL ENVIRONMENTAL Mild N/A 03/02/2012 Yes No Known Drug Allergies [id number] Drug Allergy Unknown N/ A 04/09/2016 Medications [...] NORBERT GIBBS, RABIA Cai Ot Z79.899 OTHER SPECIALTY PLANT SUPERVISOR (CURRENT) DRUG THERAPY 08/06/1056 NORBERT GIBBS, RABIA [...] ARAUJO MD Ot V45.89 06/15/2015 LUCAS RAHMAN GAS WELL DRILLING MANAGER Ot 305.1 06/15/2015 LUCAS RAHMAN GAS WELL DRILLING MANAGER Ot 564.00 06/15/2015 LUCAS RAHMAN GAS WELL DRILLING MANAGER Ot 786.2 06/15/2015 LUCAS RAHMAN GAS WELL DRILLING MANAGER Ot 787.02 06/15/2015 SARAVANAN GIBBS, LINDSEY Castrejon [...] K63.5 POLYP OF COLON 07/10/2015 EDILBERTO MOULTON DOG SITTER Ot J90 07/10/2015 EDILBERTO MOULTON APRN Ot [...] ALLEN Rojas Ot V45.89 07/23/2015 LUCAS RAHMAN [facility] Ot 305.1 07/23/2015 LUCAS RAHMAN GAS WELL DRILLING MANAGER Ot 564.00 07/23/2015 LUCAS RAHMAN GAS WELL DRILLING MANAGER Ot 786.2 07/23/2015 LUCAS RAHMAN GAS WELL DRILLING MANAGER Ot 787.02 07/23/2015 SARAVANAN GIBBS, LINDSEY Castrejon [...] RABIA Cai Ot Z85.46 07/23/2015 EDILBERTO MOULTON DOG SITTER Ot J90 07/23/2015 EDILBERTO MOULTON DOG SITTER Ot K59.00 07/23/2015 MARIELA GIBBS, BRAYAN Heredia [...] Rojas Ot 723.1 07/23/2015 GAYLE GIBBS, ALLEN Roajs Ot V45.89 07/23/2015 LUCAS RAHMAN GAS WELL DRILLING MANAGER Ot 305.1 07/23/2015 LUCAS RAHMAN GAS WELL DRILLING MANAGER Ot 564.00 07/23/2015 LUCAS RAHMAN GAS WELL DRILLING MANAGER Ot 786.2 07/23/2015 LUCAS RAHMAN GAS WELL DRILLING MANAGER Ot 787.02 07/23/2015 SARAVANAN GIBBS, LINDSEY Castrejon Ot 722.83 07/23/2015 LINDSEY COE MD Ot 724.02 07/23/2015 GAYLE GIBBS, ALLEN Rojas Ot 959.01 07/23/2015 GAYLE GIBBS, ALLEN Rojas Ot E000.8 07/23/2015 ALLEN ARAUJO MD Ot E888.9 07/23/2015 NORBERT GIBBS, RABIA K Ot F17.210 07/23/2015 NORBERT GIBBS, RABIA K Ot J91.0 07/23/2015 NORBERT GIBSB, RABIA K Ot K59.00 07/23/2015 NORBERT GIBBS, RABIA K Ot M19.90 07/23/2015 NORBERT GIBBS, RABIA K Ot M48.06 07/23/2015 NORBERT GIBBS, RABIA K Ot R91.8 07/23/2015 NORBERT GIBBS, RABIA K Ot Z79.899 07/23/2015 NORBERT GIBBS, RABIA K Ot Z85.46 07/23/2015 EDILBERTO MOULTON DOG SITTER Ot J90 07/23/2015 EDILBERTO MOULTON DOG SITTER Ot K59.00 07/23/2015 MARIELA GIBBS, BRAYAN M [...] RABIA K Ot Z85.46 07/23/2015 EDILBERTO MOULTON DOG SITTER Ot J90 07/23/2015 EDILBERTO MOULTON DOG SITTER Ot K59.00 07/23/2015 GAYLE GIBBS, ALLEN A [...] ALLEN Rojas Ot E888.9 07/31/2015 EDILBERTO MOULTON DOG SITTER Ot J90 07/31/2015 EDILBERTO MOULTON DOG SITTER Ot K59.00 08/08/2015 NORBERT GIBBS, RABIA Cai [...] Cai Ot Z79.899 08/17/2015 NORBERT GIBBS, RABIA aCi Ot Z85.46 09/13/2015 Ot 185 09/13/2015 Ot [...] ALLEN Rojas Ot V45.89 09/13/2015 LUCAS RAHMAN G[employer] WELL DRILLING MANAGER Ot 305.1 09/13/2015 LUCAS RAHMAN GAS WELL DRILLING MANAGER Ot 564.00 09/13/2015 LUCAS RAHMAN GAS WELL DRILLING MANAGER Ot 786.2 09/13/2015 LUCAS RAHMAN GAS WELL DRILLING MANAGER Ot 787.02 09/13/2015 SARAVANAN GIBBS, LINDSEY Castrejon [...] RABIA Cai Ot Z85.46 09/13/2015 EDILBERTO MOULTON DOG SITTER Ot J90 09/13/2015 EDILBERTO MOULTON APRN Ot [...] RABIA Cai Ot M19.90 09/19/2015 NORBERT GIBBS, ARBIA Cai Ot M48.06 09/19/2015 NORBERT GIBBS, RABIA [...] NORBERT GIBBS, RABIA Cai Ot Z85.46 11/02/2015 NORBERT GIBBS, RABIA [...] 12/26/2015 RABIA TOUSSAINT MD Ot Z79.899 OTHER SPECIALTY PLANT SUPERVISOR (CURRENT) DRUG THERAPY 12/26/2015 RABIA TOUSSAINT MD [...] 01/30/2016 RABIA TOUSSAINT MD Ot Z79.899 OTHER SPECIALTY PLANT SUPERVISOR (CURRENT) DRUG THERAPY 01/30/2016 RABIA TOUSSAINT MD [...] OF MALIGNANT NEOPLASM O 03/14/2016 POOJA SHAW GAS WELL DRILLING MANAGER Ot 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 OF LOWER LOBE, LEFT B 03/14/2016 POOJA SHAW GAS WELL DRILLING MANAGER Ot F17.210 NICOTINE DEPENDENCE, CIGARETTES, UNCOMPL 03/14/2016 POOJA SHAW GAS WELL DRILLING MANAGER Ot 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 03/14/2016 POOJA SHAW GAS WELL DRILLING MANAGER Ot K59.00 CONSTIPATION, UNSPECIFIED 03/14/2016 POOJA SHAW GAS WELL DRILLING MANAGER Ot M19.90 UNSPECIFIED OSTEOARTHRITIS, UNSPECIFIED 03/14/2016 POOJA SHAW S GAS WELL DRILLING MANAGER Ot M48.06 SPINAL STENOSIS, LUMBAR REGION 03/14/2016 POOJA SHAW S GAS WELL DRILLING MANAGER Ot R91.8 OTHER NONSPECIFIC ABNORMAL FINDING OF TAMAR 03/14/2016 POOJA SHAW GAS WELL DRILLING MANAGER Ot Z79.899 OTHER SPECIALTY PLANT SUPERVISOR (CURRENT) DRUG THERAPY 03/14/2016 POOJA SHAW GAS WELL DRILLING MANAGER Ot Z85.46 PERSONAL HISTORY OF MALIGNANT NEOPLASM [...] 04/06/2016 RABIA TOUSSAINT MD Ot Z79.899 OTHER SPECIALTY PLANT SUPERVISOR (CURRENT) DRUG THERAPY 04/06/2016 RABIA TOUSSAINT MD [...] 04/07/2016 RABIA TOUSSAINT MD Ot Z79.899 OTHER SPECIALTY PLANT SUPERVISOR (CURRENT) DRUG THERAPY 04/07/2016 RABIA TOUSSAINT MD [...] 04/08/2016 RABIA TOUSSAINT MD Ot Z79.899 OTHER SPECIALTY PLANT SUPERVISOR (CURRENT) DRUG THERAPY 04/08/2016 RABIA TOUSSAINT MD [...] 04/10/2016 RABIA TOUSSAINT MD Ot Z79.899 OTHER SPECIALTY PLANT SUPERVISOR (CURRENT) DRUG THERAPY 04/10/2016 RABIA TOUSSAINT MD [...] V45.89 POSTSURGICAL STATES NEC 04/16/2016 LACEYLUCAS Giovanna GAS WELL DRILLING MANAGER Ot 305.1 TOBACCO USE DISORDER 04/16/2016 LACEYLUCAS Giovanna GAS WELL DRILLING MANAGER Ot 564.00 UNSPEC CONSTIPATION 04/16/2016 RAHMANLUCAS Giovanna GAS WELL DRILLING MANAGER Ot 786.2 COUGH 04/16/2016 RAHMANLUCAS Giovanna GAS WELL DRILLING MANAGER Ot 787.02 NAUSEA ALONE 04/16/2016 SARAVANAN GIBBS, [...] 04/16/2016 RADHA ALANIZ MD Ot Z79.899 OTHER SPECIALTY PLANT SUPERVISOR (CURRENT) DRUG THERAPY 04/16/2016 RADHA ALANIZ MD Ot Z85.46 PERSONAL HISTORY OF MALIGNANT NEOPLASM O 04/16/2016 RADHA ALANIZ MD Ot 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 OF LOWER LOBE, LEFT B 04/16/2016 NORBERT GIBBS, RABIA Cai Ot 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 OF LOWER LOBE, LEFT B 04/16/2016 MANUEL ADLER Ot I95.9 HYPOTENSION, UNSPECIFIED 04/16/2016 MANUEL ADLER Ot R42 DIZZINESS AND GIDDINESS 04/16/2016 POOJA SHAW GAS WELL DRILLING MANAGER Ot 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 OF LOWER LOBE, LEFT B 04/16/2016 POOJA SHAW GAS WELL DRILLING MANAGER Ot F17.210 NICOTINE DEPENDENCE, CIGARETTES, UNCOMPL 04/16/2016 POOJA SHAW GAS WELL DRILLING MANAGER Ot 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 04/16/2016 POOJA SHAW GAS WELL DRILLING MANAGER Ot K59.00 CONSTIPATION, UNSPECIFIED 04/16/2016 POOJA SHAW GAS WELL DRILLING MANAGER Ot M19.90 UNSPECIFIED OSTEOARTHRITIS, UNSPECIFIED 04/16/2016 POOJA SHAW GAS WELL DRILLING MANAGER Ot M48.06 SPINAL STENOSIS, LUMBAR REGION 04/16/2016 POOJA SHAW GAS WELL DRILLING MANAGER Ot R91.8 OTHER NONSPECIFIC ABNORMAL FINDING OF TAMAR 04/16/2016 POOJA SHAW GAS WELL DRILLING MANAGER Ot Z79.899 OTHER HALF-WAY (CURRENT) DRUG THERAPY 04/16/2016 POOJA SHAW GAS WELL DRILLING MANAGER Ot Z85.46 PERSONAL HISTORY OF MALIGNANT NEOPLASM O 04/16/2016 POOJA SHAW GAS WELL DRILLING MANAGER Ot 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 OF LOWER LOBE, [...] 04/16/2016 RABIA TOUSSAINT MD Ot Z79.899 OTHER SPECIALTY PLANT SUPERVISOR (CURRENT) DRUG THERAPY 04/16/2016 RABIA TOUSSAINT MD Ot Z85.46 PERSONAL HISTORY OF MALIGNANT NEOPLASM O 04/17/2016 POOJA SHAW GAS WELL DRILLING MANAGER Ot 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 OF LOWER LOBE, LEFT B 04/17/2016 POOJA SHAW GAS WELL DRILLING MANAGER Ot F17.210 NICOTINE DEPENDENCE, CIGARETTES, UNCOMPL 04/17/2016 COLIN POOJA Arteaga GAS WELL DRILLING MANAGER Ot 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 04/17/2016 SHAW POOJA Arteaga GAS WELL DRILLING MANAGER Ot K59.00 CONSTIPATION, UNSPECIFIED 04/17/2016 SHAW POOJA Arteaga GAS WELL DRILLING MANAGER Ot M19.90 UNSPECIFIED OSTEOARTHRITIS, UNSPECIFIED 04/17/2016 COLIN POOJA Arteaga GAS WELL DRILLING MANAGER Ot M48.06 SPINAL STENOSIS, LUMBAR REGION 04/17/2016 SHAW POOJA Arteaga GAS WELL DRILLING MANAGER Ot R91.8 OTHER NONSPECIFIC ABNORMAL FINDING OF TAMAR 04/17/2016 SHAW POOJA Arteaga GAS WELL DRILLING MANAGER Ot Z79.899 OTHER HALF-WAY (CURRENT) DRUG THERAPY 04/17/2016 COLIN POOJA Arteaga GAS WELL DRILLING MANAGER Ot Z85.46 PERSONAL HISTORY OF MALIGNANT NEOPLASM [...] 05/23/2016 RABIA TOUSSAINT MD Ot Z79.899 OTHER SPECIALTY PLANT SUPERVISOR (CURRENT) DRUG THERAPY 05/23/2016 RABIA TOUSSAINT MD [...] 05/25/2016 RABIA TOUSSAINT MD Ot Z79.899 OTHER SPECIALTY PLANT SUPERVISOR (CURRENT) DRUG THERAPY 05/25/2016 RABIA TOUSSAINT MD [...] 06/05/2016 RABIA TOUSSAINT MD Ot Z79.899 OTHER SPECIALTY PLANT SUPERVISOR (CURRENT) DRUG THERAPY 06/05/2016 RABIA TOUSSAINT MD [...] 06/09/2016 RABIA TOUSSAINT MD Ot Z79.899 OTHER SPECIALTY PLANT SUPERVISOR (CURRENT) DRUG THERAPY 06/09/2016 RABIA TOUSSAINT MD [...] 06/16/2016 RABIA TOUSSAINT MD Ot Z79.899 OTHER SPECIALTY PLANT SUPERVISOR (CURRENT) DRUG THERAPY 06/16/2016 RABIA TOUSSAINT MD [...] V45.89 POSTSURGICAL STATES NEC 07/09/2016 LUCAS RAHMAN GAS WELL DRILLING MANAGER Ot 305.1 TOBACCO USE DISORDER 07/09/2016 LUCAS RAHMAN GAS WELL DRILLING MANAGER Ot 564.00 UNSPEC CONSTIPATION 07/09/2016 LUCAS RAHMAN GAS WELL DRILLING MANAGER Ot 786.2 COUGH 07/09/2016 LUCAS RAHMAN GAS WELL DRILLING MANAGER Ot 787.02 NAUSEA ALONE 07/09/2016 SARAVANAN GIBBS, [...] NICOTINE DEPENDENCE, CIGARETTES, UNCOMPL 07/09/2016 POOJA SHAW GAS WELL DRILLING MANAGER Ot 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 07/09/2016 POOJA SHAWP Ot K59.00 CONSTIPATION, UNSPECIFIED 07/09/2016 POOJA SHAWP Ot M19.90 UNSPECIFIED OSTEOARTHRITIS, UNSPECIFIED 07/09/2016 POOJA SHAW GAS WELL DRILLING MANAGER Ot M48.06 SPINAL STENOSIS, LUMBAR REGION 07/09/2016 POOJA SHAW GAS WELL DRILLING MANAGER Ot R91.8 OTHER NONSPECIFIC ABNORMAL FINDING OF TAMAR 07/09/2016 POOJA SHAW GAS WELL DRILLING MANAGER Ot Z79.899 OTHER SPECIALTY PLANT SUPERVISOR (CURRENT) DRUG THERAPY 07/09/2016 POOJA SHAW GAS WELL DRILLING MANAGER Ot Z85.46 PERSONAL HISTORY OF MALIGNANT NEOPLASM O 07/09/2016 POOJA SHAW GAS WELL DRILLING MANAGER Ot 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 OF LOWER LOBE, LEFT B 07/09/2016 GAYLE GIBBS, ALLEN Rojas Ot E83.42 HYPOMAGNESEMIA 07/09/2016 GAYEL GIBBS, ALLEN Rojas Ot E87.6 HYPOKALEMIA 07/09/2016 [...] PERSONAL HISTORY OF MALIGNANT NEOPLASM O 07/10/2016 RBAIA TOUSSAINT MD Ot 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 OF [...] 08/06/2016 RABIA TOUSSAINT MD Ot Z79.899 OTHER SPECIALTY PLANT SUPERVISOR (CURRENT) DRUG THERAPY 08/06/2016 RABIA TOUSSAINT MD [...] V45.89 POSTSURGICAL STATES NEC 09/04/2016 LUCAS RAHMAN GAS WELL DRILLING MANAGER Ot 305.1 TOBACCO USE DISORDER 09/04/2016 LUCAS RAHMAN GAS WELL DRILLING MANAGER Ot 564.00 UNSPEC CONSTIPATION 09/04/2016 LUCAS RAHMAN GAS WELL DRILLING MANAGER Ot 786.2 COUGH 09/04/2016 LUCAS RAHMAN GAS WELL DRILLING MANAGER Ot 787.02 NAUSEA ALONE 09/04/2016 SARAVANAN GIBBS, LINDSEY Castrejon Ot 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-LUMBAR 09/04/2016 SARAVANAN GIBBS, LINDSEY Castrejon Ot 724.02 SPINAL STENOSIS, LUMBAR REG, W/OUT NEURO 09/04/2016 ALLEN ARAUJO MD Ot 959.01 HEAD INJURY, NOS 09/04/2016 ALLEN ARAUJO MD Ot E000.8 OTHER EXTERNAL CAUSE STATUS 09/04/2016 ALLEN ARAUJO MD Ot E888.9 FALL NOS 09/04/2016 EDILBERTO MOULTON DOG SITTER Ot J90 PLEURAL EFFUSION, NOT ELSEWHERE CLASSIFI 09/04/2016 EDILBERTO MOULTON DOG SITTER Ot K59.00 CONSTIPATION, UNSPECIFIED 09/04/2016 BRAYAN SIERRA [...] 09/04/2016 RADHA ALANIZ MD Ot Z79.899 OTHER SPECIALTY PLANT SUPERVISOR (CURRENT) DRUG THERAPY 09/04/2016 RADHA ALANIZ MD [...] NICOTINE DEPENDENCE, CIGARETTES, UNCOMPL 09/04/2016 POOJA SHAW GAS WELL DRILLING MANAGER Ot 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 09/04/2016 POOJA SHAW GAS WELL DRILLING MANAGER Ot K59.00 CONSTIPATION, UNSPECIFIED 09/04/2016 POOJA SHAWP Ot M19.90 UNSPECIFIED OSTEOARTHRITIS, UNSPECIFIED 09/04/2016 POOJA SHAW GAS WELL DRILLING MANAGER Ot M48.06 SPINAL STENOSIS, LUMBAR REGION 09/04/2016 POOJA SHAW GAS WELL DRILLING MANAGER Ot R91.8 OTHER NONSPECIFIC ABNORMAL FINDING OF TAMAR 09/04/2016 POOJA SHAW GAS WELL DRILLING MANAGER Ot Z79.899 OTHER HALF-WAY (CURRENT) DRUG THERAPY 09/04/2016 POOJA SHAW GAS WELL DRILLING MANAGER Ot Z85.46 PERSONAL HISTORY OF MALIGNANT NEOPLASM O 09/04/2016 POOJA SHAW GAS WELL DRILLING MANAGER Ot 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 OF LOWER LOBE, [...] 09/04/2016 RABIA TOUSSAINT MD Ot Z79.899 OTHER SPECIALTY PLANT SUPERVISOR (CURRENT) DRUG THERAPY 09/04/2016 RABIA TOUSSAINT MD [...] 09/19/2016 RABIA TOUSSAINT MD Ot Z79.899 OTHER SPECIALTY PLANT SUPERVISOR (CURRENT) DRUG THERAPY 09/19/2016 RABIA TOUSSAINT MD [...] 10/02/2016 RABIA TOUSSAINT MD Ot Z79.899 OTHER SPECIALTY PLANT SUPERVISOR (CURRENT) DRUG THERAPY 10/02/2016 RABIA TOUSSAINT MD [...] 10/30/2016 RABIA TOUSSAINT MD Ot Z79.899 OTHER SPECIALTY PLANT SUPERVISOR (CURRENT) DRUG THERAPY 10/30/2016 RABIA TOUSSAINT MD [...] 11/27/2016 RABIA TOUSSAINT MD Ot Z79.899 OTHER SPECIALTY PLANT SUPERVISOR (CURRENT) DRUG THERAPY 11/27/2016 RABIA TOUSSAINT MD [...] 11/27/2016 RABIA TOUSSAINT MD Ot Z79.899 OTHER SPECIALTY PLANT SUPERVISOR (CURRENT) DRUG THERAPY 11/27/2016 RABIA TOUSSAINT MD [...] 12/17/2016 RABIA TOUSSAINT MD Ot Z79.899 OTHER SPECIALTY PLANT SUPERVISOR (CURRENT) DRUG THERAPY 12/17/2016 RABIA TOUSSAINT MD [...] OTHER NONSPECIFIC ABNORMAL FINDING OF TAMAR 12/18/2016 ARBIA TOUSSAINT MD Ot Z51.11 ENCOUNTER FOR ANTINEOPLASTIC [...] MD Ot M19.90 UNSPECIFIED OSTEOARTHRITIS, UNSPECIFIED 12/24/2016 RABIA TOUSSAINT MD Ot M48.06 SPINAL STENOSIS, LUMBAR REGION 12/24/2016 RABIA TOUSSAINT MD Ot R91.8 OTHER NONSPECIFIC ABNORMAL FINDING OF TAMAR 12/24/2016 RABIA TOUSSAINT MD Ot Z79.899 OTHER SPECIALTY PLANT SUPERVISOR (CURRENT) DRUG THERAPY 12/24/2016 RABIA TOUSSAINT MD [...] OF MALIGNANT NEOPLASM O 01/21/2017 POOJA SHAW GAS WELL DRILLING MANAGER Ot 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 OF LOWER LOBE, [...] Ot M48.06 SPINAL STENOSIS, LUMBAR REGION 02/24/2017 NORBERT GIBBS, RABIA Cai Ot R91.8 OTHER NONSPECIFIC ABNORMAL FINDING OF TAMAR 02/24/2017 NORBERT GIBBS, RABIA Cai Ot Z79.899 OTHER HALF-WAY (CURRENT) DRUG THERAPY 02/24/2017 NORBERT GIBBS, RABIA Cai Ot Z85.46 PERSONAL HISTORY OF MALIGNANT NEOPLASM O Procedures Code [place] [address] INDIV PSYTX 45/50 MIN 08/26/2012 47981 PSYTX PT&/FAMILY 45 MINUTES 10/08/2012 [id number] DRAINAGE OF LEFT PLEURAL CAVITY, PERC AP [...] GROWTH Scant Growth NRG Bacterial sputum culture [id number] NR Complete urinalysis with reflex to culture [...] OF GROWTH Isolated NRG Bacterial blood culture [id number] [facility] Bacterial susceptibility panel - 04/16/16 [...] NRG Manual blood basophils/100 leukocytes 0 % [facility] Blood erythrocyte morphology finding identification NORMAL [facility] Comprehensive metabolic panel - 01/23/17 14:30 Serum [...] - 01/23/17 14:30 Bacterial blood culture NG [facility] Bacterial blood culture - 01/23/17 15:21 Bacterial blood culture NG [facility] Complete urinalysis with reflex to culture - 01/23/17 17:05 Urine color determination YELLOW NR Urine clarity determination SLIGHTLY CLOUDY [facility] Urine pH measurement by test strip 7 [...] NR Blood erythrocyte morphology finding identification NORMAL [facility] Whole blood basic metabolic panel - 01/26/17 [...] Status Pt. Type Provider Facility Loc./Unit Complaint [id number] 10/05/2012 15:52:00 10/05/2012 23: 59:59 CLS Outpatient [id number] 08/26/2012 10:00:00 08/26/2012 23: 59:59 CLS Outpatient
[2017-03-17 20:05] VITALS: BP 92/51
[2017-03-17 21:37] LABS: BILIRUBIN,URINE NEGATIVE (NEGATIVE); KETONES,URINE 1+ (NEGATIVE); LEUKOCYTE ESTERASE ,URINE NEGATIVE (NEGATIVE); NITRITE,URINE NEGATIVE (NEGATIVE); PH,URINE 5 (5-9); PROTEIN,URINE NEGATIVE (NEGATIVE); UROBILINOGEN,URINE NORMAL (NORMAL)
[2017-03-18 00:26] VITALS: BP 95/60
[2017-03-18] MEDS: NS IV 1000 ML 1,000 ML IV SCH ×3 (02:58→17:39)
[2017-03-18 03:50] VITALS: BP 107/65
[2017-03-18] MEDS: PIPERACILLIN/TAZOBACTAM 4.5 GM/NS 100 ML IVPB IV SCH ×2 (04:25)
[2017-03-18 05:19] LABS: BASOPHILS % (AUTO) 1 % (0-10); EOSINOPHILS # (AUTO) 0.8 10^3/uL (0.0-0.3); EOSINOPHILS % (AUTO) 20 % (0-10); LYMPHOCYTES # (AUTO) 0.9 X 10^3 (1.0-4.0); LYMPHOCYTES % (AUTO) 23 % (12-44); MEAN CORPUSCULAR HEMOGLOBIN 32 PG (25-34); MEAN CORPUSCULAR HGB CONC 34 G/DL (32-36); MEAN CORPUSCULAR VOLUME 95 FL (80-99); MEAN PLATELET VOLUME 10.5 FL (7.4-10.4); MONOCYTES # (AUTO) 0.3 X 10^3 (0.0-1.0); MONOCYTES % (AUTO) 8 % (0-12); NEUTROPHILS # (AUTO) 1.8 X 10^3 (1.8-7.8); NEUTROPHILS % (AUTO) 48 % (42-75); PLATELET COUNT 144 10^3/uL (130-400); RED BLOOD COUNT 3.29 10^6/uL (4.35-5.85); RED CELL DISTRIBUTION WIDTH 12.3 % (10.0-14.5); WHITE BLOOD COUNT 3.8 10^3/uL (4.3-11.0)
[2017-03-18] MEDS: CYANOCOBALAMIN 500 MCG TAB (VITAMIN B-12) PO SCH (06:03)
[2017-03-18] MEDS: KCL 20 MEQ TAB (K-DUR) PO SCH ×2 (06:03→17:39)
[2017-03-18] MEDS: PANTOPRAZOLE 40 MG (PROTONIX) TAB PO SCH (06:03)
[2017-03-18 08:00] VITALS: BP 103/66
[2017-03-18] MEDS: MAGNESIUM OXIDE (MAG-OX)400 MG TAB PO SCH (08:21)
[2017-03-18] MEDS: ENOXAPARIN 40 MG/0.4 ML (LOVENOX) SYR SC SCH (08:22)
[2017-03-18] MEDS: MELOXICAM 7.5 MG (MOBIC) TABLET PO SCH (08:22)
[2017-03-18] MEDS: LUBIPROSTONE 8 MCG (AMITIZA) CAPSULE NON-FORMULARY PO SCH (08:22)
[2017-03-18] MEDS ORDERED: VANCOMYCIN 1 GM/NS 250 ML IVPB IV SCH ×2 (09:00)
--- NOTE | 2017-03-18 09:31 | Progress Note (SOAP) ---
Subjective Date Seen by Provider: Mar 18, 2017 Time Seen by Provider: 09:05 Subjective/Events-last exam No new complaints; Cough is not increased; Hasn't been out of bed yet; Objective Exam Vital Signs Date Time Temp Pulse Resp B/P (MAP) Pulse Ox O2 Delivery O2 Flow Rate FiO2 03/18/17 03:50 98.0 58 20 107/65 96 Room Air 03/18/17 00:26 97.3 60 20 95/60 96 Room Air 03/17/17 20:49 Room Air 03/17/17 20:05 99.1 62 18 92/51 96 Room Air 03/17/17 16:19 98.0 60 18 91/55 98 Room Air 03/17/17 11:58 97.6 67 18 98/64 98 Room Air I & O 03/18/17 07:00 Intake Total 3282.5 ml Output Total 1475 ml Balance 1807.5 ml Capillary Refill : Less Than 3 SecondsLess Than 3 Seconds General Appearance: No Apparent Distress HEENT: PERRL/EOMI Neck: Full Range of Motion Respiratory: Lungs Clear Cardiovascular: Regular Rate, Rhythm Gastrointestinal: normal bowel sounds, soft Neurologic/Psychiatric: Alert, Oriented x3 Results Lab Laboratory Tests 03/17/17 18:40: Vancomycin Level Trough 20.0 03/17/17 21:30: Urine Color YELLOW, Urine Clarity CLEAR, Urine pH 5, Urine Specific [place] 1.015L, Urine Protein NEGATIVE, Urine Glucose (UA) NEGATIVE, Urine Ketones 1+H, Urine Nitrite NEGATIVE, Urine Bilirubin NEGATIVE, Urine Urobilinogen NORMAL, Urine Leukocyte Esterase NEGATIVE, Urine RBC (Auto) 3+H, Urine RBC 0-2, Urine WBC NONE, Urine Crystals NONE, Urine Bacteria NONE, Urine Casts NONE, Urine Mucus NEGATIVE, Urine Culture Indicated NO 03/18/17 05:15: White Blood Count 3.8L, Red Blood Count 3.29L, Hemoglobin 10.6L, Hematocrit 31L , Mean Corpuscular Volume 95, Mean Corpuscular Hemoglobin 32, Mean Corpuscular Hemoglobin Concent 34, Red Cell Distribution Width 12.3, Platelet Count 144, Mean Platelet Volume 10.5H, Neutrophils (%) (Auto) 48, Lymphocytes (%) (Auto) 23 , Monocytes (%) (Auto) 8, Eosinophils (%) (Auto) 20H, Basophils (%) (Auto) 1, Neutrophils # (Auto) 1.8, Lymphocytes # (Auto) 0.9L, Monocytes # (Auto) 0.3, Eosinophils # (Auto) 0.8H, Basophils # (Auto) 0.0 Microbiology 03/16/17 Blood Culture - Preliminary, Resulted No growth Assessment/Plan Assessment/Plan Assess & Plan/Chief Complaint 1. Fever/altered mental status--confusion probably related to acute illness. MRI has been reviewed and shows no evidence of metastatic lesion. Improved with IV antibiotics. Blood cultures negative. 2. 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 The described prostatic enlargement and rectosigmoid wall thickening is likely related to his previous radiation therapy for his prostate cancer that was diagnosed in 2008. Cannot exclude recurrent disease. a. Urinalysis reviewed. 3. Drop in hemoglobin from 13-10.9--likely related to hydration. a. Hemoglobin 10.5 today, stable from yesterday's 10.9; 4. History recurrent syncope 5. Chronic back pain/spinal stenosis 6. History of prostate cancer diagnosed 2008 treated with radiation 7. Chronic tobaccoism Clinical Quality Measures DVT/VTE Risk/Contraindication: Risk Factor Score Per Nursin RFS Level Per Nursing on Admit: 4+=Very High RABIA TOUSSAINT MD Mar 18, 2017 09:31
--- NOTE | 2017-03-18 09:32 | Progress Note (SOAP) ---
Subjective Date Seen by Provider: Mar 18, 2017 Time Seen by Provider: 09:25 Subjective/Events-last exam PT REPORTS FEELING BETTER TODAY - HE DENIES CHEST PAIN, HE HAS CHRONIC SHORTNESS OF BREATH. HE HAS A CHRONIC COUGH. HE DENIES ABDOMINAL PAIN, NAUSEA HE DOES REPORT INCREASE IN HIS BACK PAIN. Review of Systems General: Fatigue Pulmonary: Dyspnea, Cough Cardiovascular: No: Chest Pain Gastrointestinal: No: Abdominal Pain, Nausea Musculoskeletal: back pain Neurological: Weakness, No: Confusion Objective Exam Vital Signs Date Time Temp Pulse Resp B/P (MAP) Pulse Ox O2 Delivery O2 Flow Rate FiO2 03/18/17 03:50 98.0 58 20 107/65 96 Room Air 03/18/17 00:26 97.3 60 20 95/60 96 Room Air 03/17/17 20:49 Room Air 03/17/17 20:05 99.1 62 18 92/51 96 Room Air 03/17/17 16:19 98.0 60 18 91/55 98 Room Air 03/17/17 11:58 97.6 67 18 98/64 98 Room Air I & O 03/18/17 06:59 Intake Total 3282.5 ml Output Total 1475 ml Balance 1807.5 ml Capillary Refill : Less Than 3 SecondsLess Than 3 Seconds General Appearance: No Apparent Distress, WD/WN HEENT: PERRL/EOMI Respiratory: Chest Non Tender, Decreased Breath Sounds Cardiovascular: Regular Rate, Rhythm Gastrointestinal: normal bowel sounds, non tender, soft, no organomegaly, no pulsatile mass Extremity: Pedal Edema Neurologic/Psychiatric: Alert, Oriented x3, No Motor/Sensory Deficits, Normal Mood/Affect Skin: Warm/Dry Results Lab Laboratory Tests 03/17/17 18:40: Vancomycin Level Trough 20.0 03/17/17 21:30: Urine Color YELLOW, Urine Clarity CLEAR, Urine pH 5, Urine Specific [place] 1.015L, Urine Protein NEGATIVE, Urine Glucose (UA) NEGATIVE, Urine Ketones 1+H, Urine Nitrite NEGATIVE, Urine Bilirubin NEGATIVE, Urine Urobilinogen NORMAL, Urine Leukocyte Esterase NEGATIVE, Urine RBC (Auto) 3+H, Urine RBC 0-2, Urine WBC NONE, Urine Crystals NONE, Urine Bacteria NONE, Urine Casts NONE, Urine Mucus NEGATIVE, Urine Culture Indicated NO 03/18/17 05:15: White Blood Count 3.8L, Red Blood Count 3.29L, Hemoglobin 10.6L, Hematocrit 31L , Mean Corpuscular Volume 95, Mean Corpuscular Hemoglobin 32, Mean Corpuscular Hemoglobin Concent 34, Red Cell Distribution Width 12.3, Platelet Count 144, Mean Platelet Volume 10.5H, Neutrophils (%) (Auto) 48, Lymphocytes (%) (Auto) 23 , Monocytes (%) (Auto) 8, Eosinophils (%) (Auto) 20H, Basophils (%) (Auto) 1, Neutrophils # (Auto) 1.8, Lymphocytes # (Auto) 0.9L, Monocytes # (Auto) 0.3, Eosinophils # (Auto) 0.8H, Basophils # (Auto) 0.0 Microbiology 03/16/17 Blood Culture - Preliminary, Resulted No growth Assessment/Plan Assessment/Plan Assess & Plan/Chief Complaint FEVER CONFUSION DELIRIUM HX LUNG CANCER CHRONIC PAIN SYNDROME FROM BACK/NECK SURGERY MILD HYPOKALEMIA MILD ANEMIA FEVER - ON IV ANTIBIOTICS, BLOOD CULTURES NEGATIVE THUS FAR, MONITOR SYMPTOMS. CONFUSION/DELIRIUM - RESOLVED - IT WAS DUE TO ACUTE ILLNESS HX LUNG CANCER - CONSULT TO DR. TOUSSAINT - SEE HER NOTE FOR FULL DETAILS CHRONIC PAIN SYNDROME FROM BACK/NECK SURGERY - CONTINUE PAIN MEDICATIONS. MILD HYPOKALEMIA - REPLENISH IV/ORAL. MILD ANEMIA - MONITOR LABS. DVT PROPHYLAXIS, GI PROPHYLAXIS - WILL START SCD'S AND LOVENOX WELL PPI Clinical Quality Measures DVT/VTE Risk/Contraindication: Risk Factor Score Per Nursin RFS Level Per Nursing on Admit: 4+=Very High ALLEN ARAUJO MD Mar 18, 2017 09:32
[2017-03-18] MEDS: metroNIDAZOLE 500MG/100ML IVPB 100 ML IV SCH ×3 (09:39→21:42)
[2017-03-18 12:55] VITALS: BP 105/63
[2017-03-18 16:35] VITALS: BP 92/56
[2017-03-18 19:10] VITALS: BP 106/69
[2017-03-19] VITALS: BP 114/72
[2017-03-19] MEDS: NS IV 1000 ML 1,000 ML IV SCH (03:37)
[2017-03-19 05:59] LABS: BASOPHILS % (AUTO) 1 % (0-10); EOSINOPHILS # (AUTO) 0.6 10^3/uL (0.0-0.3); EOSINOPHILS % (AUTO) 21 % (0-10); LYMPHOCYTES # (AUTO) 0.8 X 10^3 (1.0-4.0); LYMPHOCYTES % (AUTO) 25 % (12-44); MEAN CORPUSCULAR HEMOGLOBIN 32 PG (25-34); MEAN CORPUSCULAR HGB CONC 34 G/DL (32-36); MEAN CORPUSCULAR VOLUME 94 FL (80-99); MEAN PLATELET VOLUME 10.9 FL (7.4-10.4); MONOCYTES # (AUTO) 0.2 X 10^3 (0.0-1.0); MONOCYTES % (AUTO) 8 % (0-12); NEUTROPHILS # (AUTO) 1.3 X 10^3 (1.8-7.8); NEUTROPHILS % (AUTO) 45 % (42-75); PLATELET COUNT 155 10^3/uL (130-400); RED BLOOD COUNT 3.23 10^6/uL (4.35-5.85)
[2017-03-19] MEDS: CYANOCOBALAMIN 500 MCG TAB (VITAMIN B-12) PO SCH (06:05)
[2017-03-19] MEDS: PANTOPRAZOLE 40 MG (PROTONIX) TAB PO SCH (06:05)
[2017-03-19] MEDS: metroNIDAZOLE 500MG/100ML IVPB 100 ML IV SCH (06:05)
[2017-03-19] MEDS: KCL 20 MEQ TAB (K-DUR) PO SCH (06:05)
[2017-03-19] MEDS ORDERED: TROUGH ORDER-PHARMACY XX NR (08:00)
[2017-03-19 08:01] VITALS: BP 133/75
[2017-03-19] MEDS: LUBIPROSTONE 8 MCG (AMITIZA) CAPSULE NON-FORMULARY PO SCH (08:09)
[2017-03-19] MEDS: MAGNESIUM OXIDE (MAG-OX)400 MG TAB PO SCH (08:09)
[2017-03-19] MEDS: ENOXAPARIN 40 MG/0.4 ML (LOVENOX) SYR SC SCH (08:10)
[2017-03-19] MEDS: MELOXICAM 7.5 MG (MOBIC) TABLET PO SCH (08:10)
[2017-03-19] MEDS ORDERED: oxyCODONE ER 40 MG (oxyCONTIN CR) TAB PO SCH (09:00)
[2017-03-19] MEDS ORDERED: METR500T21 PO (09:06)
--- NOTE | 2017-03-19 09:08 | Discharge Inst-Complex ---
PDI Med Rec & Follow Up Appt. New Medications: Metronidazole (Metronidazole) 500 Mg Tablet 500 MG PO TID for 7 Days, #21 TAB Continued Medications: Clonazepam (Clonazepam) 0.5 Mg Tablet 0.5 MG PO Q8H PRN for ANXIETY, TAB Cyanocobalamin (Vitamin B-12) (Vitamin B-12) 1,000 Mcg Tablet 1000 MCG PO DAILY, TAB Furosemide (Furosemide) 20 Mg Tablet 10 MG PO DAILY PRN for SWELLING, TAB TAKES 1/2 OF A (20 MG) TABLET Lubiprostone (Amitiza) 24 Mcg Capsule 24 MCG PO DAILY, CAP Magnesium (Magnesium) 250 Mg Tablet 500 MG PO DAILY, TAB TAKES 2 (250 MG) TABLETS Meloxicam (Meloxicam) 15 Mg Tablet 15 MG PO DAILY, TAB Omeprazole (Omeprazole) 40 Mg Capsule.dr 40 MG PO DAILY, CAP Ondansetron HCl (Ondansetron HCl) 8 Mg Tablet 8 MG PO Q8H PRN for NAUSEA/VOMITING-1ST LINE, TAB Oxycodone HCl (Oxycodone HCl) 20 Mg Tablet 20-40 MG PO EVERY 4-6 HOURS PRN for PAIN-SEVERE, TAB Oxycodone HCl (Oxycontin) 40 Mg Tab.er.12h 40 MG PO BID PRN for PAIN-SEVERE, TAB Potassium Chloride (Klor-Con M20) 20 Meq Tab.er.prt 20 MEQ PO BID, TAB Vitamin E Acetate (Vitamin E) 400 Unit Capsule 400 UNIT PO DAILY, CAP Prescription: Transmitted to Pharmacy Activity, Diet and PDI Resume Normal Activity: Yes Discharge Diet: Regular Diet Diet for 24 Hours: No Alcohol (NO ALCOHOL X 7 DAYS WHILE TAKING THE METRONIDAZOLE ANTIBIOTIC) Drink 6-8 Glasses of Fluid/Day: Yes Driving Instructions: No Driving/Refer to Symptoms to Reoprt to : Appetite Changes, Fever Over 101 Degrees F, Pain/ Pressure in Chest, Diarrhea(Persistant), Shortness of Breath For Problems or Questions: Contact Your Physician ALLEN ARAUJO MD Mar 19, 2017 09:08
--- NOTE | 2017-03-19 09:09 | Discharge Summary ---
Diagnosis/Chief Complaint Date of Admission Mar 16, 2017 at 05:43 Date of Discharge Discharge Date: Mar 19, 2017 Discharge Time: 929 Admission Diagnosis Admission Diagnosis FEVER CONFUSION DELIRIUM HX LUNG CANCER CHRONIC PAIN SYNDROME FROM BACK/NECK SURGERY MILD HYPOKALEMIA MILD ANEMIA Discharge Diagnosis GASTROENTERITIS FEVER CONFUSION DELIRIUM HX LUNG CANCER CHRONIC PAIN SYNDROME FROM BACK/NECK SURGERY MILD HYPOKALEMIA MILD ANEMIA Reason Hospital Visit PT IS A 71 Y/O MALE WHO IS KNOWN TO ME FROM CLINIC. HE PRESENTED TO THE HOSPITAL AFTER HAVING A FEW DAYS OF CONFUSION AND WEAKNESS. HE HAD A FEVER, SYNCOPAL EPISODE AND STARTED TO HAVE IMPROVED SYMPTOMS, FAMILY KEPT HIM AT HOME , THEN THE NEXT DAY HE HAD INCREASED WEAKNESS, AND HAD A REPEAT SYNCOPAL EPISODE AND HIS FAMILY WAS UNABLE TO GET HIM UP OFF OF THE FLOOR. HE PRESENTED TO THE HOSPITAL IN A CONFUSED STATUS, FOUND TO HAVE A FEVER AND WAS THUS ADMITTED TO THE HOSPITAL. Discharge Summary Discharge Physical Examination Allergies: Coded Allergies: No Known Drug Allergies (Unverified , 04/09/16) Vitals & I&Os General Appearance: Alert, Oriented X3, Cooperative HEENT: Atraumatic, PERRLA Respiratory: Clear to Auscultation, Other (DECREASED BREATH SOUNDS THROUGHOUT) Cardiovascular: Regular Rate Abdominal: Normal Bowel Sounds, Soft Neuro: Cranial Nerves 3-12 NL Psych/Mental Status: Mental Status NL, Mood NL Hospital Course GASTROENTERITIS FEVER CONFUSION DELIRIUM HX LUNG CANCER CHRONIC PAIN SYNDROME FROM BACK/NECK SURGERY MILD HYPOKALEMIA MILD ANEMIA FEVER DUE TO GASTROENTERITIS - ON IV ANTIBIOTICS, BLOOD CULTURES NEGATIVE. CONFUSION/DELIRIUM - DUE TO ACUTE ILLNESS - PUSHED IV FLUIDS, IV ANTIBIOTICS, HELD LONG ACTING NARCOTICS, MONITORED SYMPTOMS, - IMPROVED AND PT BACK TO NORMAL FUNCTIONING. HX LUNG CANCER - WAITING ON REPEAT IMAGING TOMORROW. CHRONIC PAIN SYNDROME FROM BACK/NECK SURGERY -RESUMED HOME REGIMEN ON DISCHARGE. MILD HYPOKALEMIA - REPLENISHED WITH IV/ORAL. MILD ANEMIA - MONITORED LABS. - HGB STABLE DC TO HOME WITH FOLLOW UP IN 1-2 WKS Pending Labs Discharge Condition at discharge IMPROVED Instructions to patient/family Please see electonic discharge instructions given to patient. Discharge Medications Reviewed and agree with Discharge Medication list on patient's Discharge Instruction sheet Clinical Quality Measures DVT/VTE Risk/Contraindication: Risk Factor Score Per Nursin RFS Level Per Nursing on Admit: 4+=Very High ALLEN ARAUJO MD Mar 19, 2017 09:09
--- NOTE | 2017-03-20 09:37 | Physician Query Clarification ---
PQ-Further Specificity Admission/Discharge Admission Date: Mar 16, 2017 at 05:43 Discharge Date: Mar 19, 2017 at 10:15 The medical record reflects the following clinical scenario: History/Risk Factors: Lt. Lung CA Clinical Findings: fever, weakness Treatment: IV ABX, IV fluids Question: Can you further specify the etiology of the fever and weakness, AMS, syncope and N/V per the clinical indicators above? Please document below. 1.Please list the etiologic condition of the above symptoms under explanation 2. fever, weakness, AMS, syncope and N/V etiolgy undetermined 3. Other, with explanation of the clinical findings. 4. Clinically undetermined, no explanation for the clinical findings. PHYSICIAN RESPONSE Can you specify per above: Other, explanation/clinical finding (GASTROENTERITIS ) In responding to this query, please exercise your independent professional judgment. The purpose of this communication is to more accurately reflect the complexity of your patients condition. The fact that a question is asked does not imply that any particular answer is desired or expected. Thank you for your timely response to this clarification. Requestors name: Wilver THIS PHYSICIAN QUERY FORM IS A PERMANENT PART OF THE MEDICAL RECORD WILVER WARNER Mar 20, 2017 09:37 ALLEN ARAUJO MD Apr 08, 2017 12:48
== END 2017-03-19 10:15 | disposition home or self-care (01) | DRG 392 ==
LOC: EDUNIT# 02:43 → ER 02:45 → 4TH 05:43 → ENPENDDIS 03-19 09:30
PROVIDERS: ADMIT Family Medicine; ATTEND Family Medicine
DX: K52.9 Noninfective gastroenteritis and colitis, unspecified (principal); C34.92 Malignant neoplasm of unspecified part of left bronchus or lung; Z87.891 Personal history of nicotine dependence; G89.4 Chronic pain syndrome; M54.9 Dorsalgia, unspecified; M54.2 Cervicalgia; E87.6 Hypokalemia; D64.9 Anemia, unspecified; J44.9 Chronic obstructive pulmonary disease, unspecified; G43.909 Migraine, unspecified, not intractable, without status migrainosus; K59.09 Other constipation; M19.91 Primary osteoarthritis, unspecified site; F41.9 Anxiety disorder, unspecified; Z92.21 Personal history of antineoplastic chemotherapy
CPT/HCPCS: 36415; 70450; 70553; 71010; 71250; 71260; 74178; 80053; 80202; 81000; 83605; 83735; 85007; 85025; 85027; 85610; 85730; 87040; 96361; 96365

== ENCOUNTER 2017-04-01 13:47 | Outpatient (RCR) | payer MEDICARE, OTHER ==
[2017-03-24 11:09] LABS: BASOPHILS % (AUTO) 1 % (0-10); EOSINOPHILS # (AUTO) 0.7 10^3/uL (0.0-0.3); EOSINOPHILS % (AUTO) 15 % (0-10); LYMPHOCYTES # (AUTO) 1.1 X 10^3 (1.0-4.0); LYMPHOCYTES % (AUTO) 24 % (12-44); MEAN CORPUSCULAR HGB CONC 33 G/DL (32-36); MEAN CORPUSCULAR VOLUME 97 FL (80-99); MEAN PLATELET VOLUME 10.1 FL (7.4-10.4); MONOCYTES # (AUTO) 0.3 X 10^3 (0.0-1.0); MONOCYTES % (AUTO) 7 % (0-12); NEUTROPHILS # (AUTO) 2.5 X 10^3 (1.8-7.8); NEUTROPHILS % (AUTO) 53 % (42-75); PLATELET COUNT 226 10^3/uL (130-400); RED BLOOD COUNT 3.82 10^6/uL (4.35-5.85); WHITE BLOOD COUNT 4.8 10^3/uL (4.3-11.0)
[2017-03-24 11:34] LABS: ALANINE AMINOTRANSFERASE 24 U/L (0-55); ALBUMIN 3.2 GM/DL (3.2-4.5); ANION GAP 7 MMOL/L (5-14); ASPARTATE AMINO TRANSFERASE 46 U/L (5-34); BILIRUBIN,TOTAL 0.3 MG/DL (0.1-1.0); BLOOD UREA NITROGEN 8 MG/DL (7-18); BUN/CREATININE RATIO 7; CALCIUM 8.8 MG/DL (8.5-10.1); CARBON DIOXIDE 26 MMOL/L (21-32); CHLORIDE 106 MMOL/L (98-107); CREATININE SERUM 1.12 MG/DL (0.60-1.30); GFR ESTIMATED > 60; GLUCOSE 111 MG/DL (70-105); MAGNESIUM 1.4 MG/DL (1.8-2.4); POTASSIUM 3.8 MMOL/L (3.6-5.0); SODIUM 139 MMOL/L (135-145); TOTAL PROTEIN 5.8 GM/DL (6.4-8.2)
[2017-03-24 12:00] LABS: THYROID STIMULATING HORMONE 10.06 UIU/ML (0.35-4.94)
[2017-03-24 12:39] LABS: MEAN CORPUSCULAR HEMOGLOBIN 32 PG (25-34)
[~2017-04-01] VITALS: Ht 177.8 cm; Wt 88.9 kg
[~2017-04-01 13:47] MED LIST changes: +ACETAMINOPHEN 500 MG TAB (TYLENOL) CANCER CTR PO PRN; +AZIT250T12 PO; -AZIT250T5 PO; +FAMOTIDINE 20MG/2ML IV (CANCER CTR) IV SCH; +LUBI24CA6 PO; +METR500T21 PO; -NCT14P TD; +NICO-587 TD; +NIVOLUMAB 200 MG, NIVOLUMAB 40 MG in NS (IVPB) CANCER CENTER 50 ML IV SCH; +NS IV 500 ML (CANCER CENTER) IV SCH; +OXYC20TA3 PO; +OXYC40TA46 PO; +diphenhydrAMINE 25 MG TAB (BENADRYL) CANCER CENTER PO SCH
[2017-04-01 14:23] LABS: BASOPHILS # (AUTO) 0.1 10^3/uL (0.0-0.1); BASOPHILS % (AUTO) 2 % (0-10); EOSINOPHILS # (AUTO) 0.6 10^3/uL (0.0-0.3); EOSINOPHILS % (AUTO) 15 % (0-10); LYMPHOCYTES # (AUTO) 1.1 X 10^3 (1.0-4.0); LYMPHOCYTES % (AUTO) 28 % (12-44); MEAN CORPUSCULAR HEMOGLOBIN 32 PG (25-34); MEAN CORPUSCULAR HGB CONC 33 G/DL (32-36); MEAN CORPUSCULAR VOLUME 96 FL (80-99); MEAN PLATELET VOLUME 9.8 FL (7.4-10.4); MONOCYTES # (AUTO) 0.3 X 10^3 (0.0-1.0); MONOCYTES % (AUTO) 7 % (0-12); NEUTROPHILS # (AUTO) 1.9 X 10^3 (1.8-7.8); NEUTROPHILS % (AUTO) 49 % (42-75); PLATELET COUNT 232 10^3/uL (130-400); RED BLOOD COUNT 4.21 10^6/uL (4.35-5.85); RED CELL DISTRIBUTION WIDTH 13.3 % (10.0-14.5); WHITE BLOOD COUNT 3.9 10^3/uL (4.3-11.0)
[2017-04-01 14:53] LABS: CALCIUM 9.4 MG/DL (8.5-10.1); CREATININE SERUM 1.22 MG/DL (0.60-1.30); POTASSIUM 3.8 MMOL/L (3.6-5.0)
[2017-04-01 15:19] LABS: THYROID STIMULATING HORMONE 6.79 UIU/ML (0.35-4.94)
== END 2017-04-07 11:18 | disposition home or self-care (01) ==
LOC: ONC 13:47
PROVIDERS: ATTEND Internal Medicine Hematology & Oncology
DX: Z51.11 Encounter for antineoplastic chemotherapy (principal); J91.0 Malignant pleural effusion; Z85.46 Personal history of malignant neoplasm of prostate; K59.00 Constipation, unspecified; R91.8 Other nonspecific abnormal finding of lung field; F17.210 Nicotine dependence, cigarettes, uncomplicated; M48.06 Spinal stenosis, lumbar region; M19.90 Unspecified osteoarthritis, unspecified site; Z79.899 Other long term (current) drug therapy
CPT/HCPCS: 36415; 36591; 80048; 80053; 83735; 84443; 85025; 96413

== ENCOUNTER 2017-05-07 11:06 | Outpatient (RCR) | payer MEDICARE, OTHER ==
[~2017-05-07 11:06] MED LIST changes: -ACETAMINOPHEN 500 MG TAB (TYLENOL) CANCER CTR PO PRN; -AZIT250T12 PO; +AZIT250T5 PO; -FAMOTIDINE 20MG/2ML IV (CANCER CTR) IV SCH; +NCT14P TD; -NICO-587 TD; -NIVOLUMAB 200 MG, NIVOLUMAB 40 MG in NS (IVPB) CANCER CENTER 50 ML IV SCH; -NS IV 500 ML (CANCER CENTER) IV SCH; -diphenhydrAMINE 25 MG TAB (BENADRYL) CANCER CENTER PO SCH
== END 2017-06-05 16:40 | disposition home or self-care (01) ==
PROVIDERS: ATTEND Nurse Practitioner Family
DX: M62.81 Muscle weakness (generalized) (principal); G89.29 Other chronic pain; R29.6 Repeated falls; Z98.1 Arthrodesis status; Z85.118 Personal history of other malignant neoplasm of bronchus and lung

== ENCOUNTER → 2017-05-21 | Outpatient (CLI) | payer MEDICARE, OTHER ==
--- NOTE | 2017-05-21 14:09 | Diagnostic Imaging Report ---
3 views of the right shoulder. INDICATION: Fall. FINDINGS: No fracture, dislocation, or radiopaque foreign body seen. The glenohumeral and acromioclavicular joints appear unremarkable. Right internal jugular infusion port is seen. IMPRESSION: Unremarkable exam. Dictated by: Dictated on workstation # [id number]
== END ==
LOC: RAD 13:27
PROVIDERS: ATTEND Family Medicine
DX: M25.511 Pain in right shoulder (principal)
CPT/HCPCS: 73030

== ENCOUNTER 2017-06-05 10:20 | Outpatient (RCR) | payer MEDICARE, OTHER ==
[2017-04-08 11:13] LABS: BASOPHILS # (AUTO) 0.1 10^3/uL (0.0-0.1); BASOPHILS % (AUTO) 2 % (0-10); EOSINOPHILS # (AUTO) 0.7 10^3/uL (0.0-0.3); EOSINOPHILS % (AUTO) 21 % (0-10); LYMPHOCYTES # (AUTO) 0.8 X 10^3 (1.0-4.0); LYMPHOCYTES % (AUTO) 24 % (12-44); MEAN CORPUSCULAR HEMOGLOBIN 33 PG (25-34); MEAN CORPUSCULAR HGB CONC 34 G/DL (32-36); MEAN CORPUSCULAR VOLUME 96 FL (80-99); MEAN PLATELET VOLUME 10.8 FL (7.4-10.4); MONOCYTES # (AUTO) 0.4 X 10^3 (0.0-1.0); MONOCYTES % (AUTO) 11 % (0-12); NEUTROPHILS # (AUTO) 1.5 X 10^3 (1.8-7.8); NEUTROPHILS % (AUTO) 42 % (42-75); PLATELET COUNT 155 10^3/uL (130-400); RED BLOOD COUNT 3.64 10^6/uL (4.35-5.85); RED CELL DISTRIBUTION WIDTH 13.1 % (10.0-14.5); WHITE BLOOD COUNT 3.5 10^3/uL (4.3-11.0)
[2017-04-08 11:35] LABS: CALCIUM 8.8 MG/DL (8.5-10.1); CREATININE SERUM 1.24 MG/DL (0.60-1.30); POTASSIUM 3.5 MMOL/L (3.6-5.0)
[2017-04-14 09:57] LABS: BASOPHILS # (AUTO) 0.1 10^3/uL (0.0-0.1); BASOPHILS % (AUTO) 2 % (0-10); EOSINOPHILS # (AUTO) 0.7 10^3/uL (0.0-0.3); EOSINOPHILS % (AUTO) 19 % (0-10); LYMPHOCYTES % (AUTO) 29 % (12-44); MEAN CORPUSCULAR HEMOGLOBIN 32 PG (25-34); MEAN CORPUSCULAR HGB CONC 34 G/DL (32-36); MEAN CORPUSCULAR VOLUME 96 FL (80-99); MEAN PLATELET VOLUME 10.4 FL (7.4-10.4); MONOCYTES # (AUTO) 0.3 X 10^3 (0.0-1.0); MONOCYTES % (AUTO) 9 % (0-12); NEUTROPHILS # (AUTO) 1.4 X 10^3 (1.8-7.8); NEUTROPHILS % (AUTO) 41 % (42-75); PLATELET COUNT 177 10^3/uL (130-400); RED CELL DISTRIBUTION WIDTH 12.7 % (10.0-14.5); WHITE BLOOD COUNT 3.5 10^3/uL (4.3-11.0)
[2017-04-14 10:12] LABS: CALCIUM 9.4 MG/DL (8.5-10.1); CREATININE SERUM 1.21 MG/DL (0.60-1.30); POTASSIUM 4.2 MMOL/L (3.6-5.0)
[2017-04-14 10:34] LABS: THYROID STIMULATING HORMONE 10.34 UIU/ML (0.35-4.94)
[2017-04-21 11:31] LABS: BASOPHILS # (AUTO) 0.1 10^3/uL (0.0-0.1); BASOPHILS % (AUTO) 2 % (0-10); EOSINOPHILS # (AUTO) 0.7 10^3/uL (0.0-0.3); EOSINOPHILS % (AUTO) 20 % (0-10); LYMPHOCYTES # (AUTO) 1.1 X 10^3 (1.0-4.0); LYMPHOCYTES % (AUTO) 32 % (12-44); MEAN CORPUSCULAR HEMOGLOBIN 32 PG (25-34); MEAN CORPUSCULAR HGB CONC 33 G/DL (32-36); MEAN CORPUSCULAR VOLUME 95 FL (80-99); MEAN PLATELET VOLUME 10.5 FL (7.4-10.4); MONOCYTES # (AUTO) 0.2 X 10^3 (0.0-1.0); MONOCYTES % (AUTO) 7 % (0-12); NEUTROPHILS # (AUTO) 1.4 X 10^3 (1.8-7.8); NEUTROPHILS % (AUTO) 40 % (42-75); PLATELET COUNT 164 10^3/uL (130-400); RED BLOOD COUNT 3.83 10^6/uL (4.35-5.85); RED CELL DISTRIBUTION WIDTH 12.9 % (10.0-14.5); WHITE BLOOD COUNT 3.5 10^3/uL (4.3-11.0)
[2017-04-21 12:02] LABS: ALBUMIN 3.4 GM/DL (3.2-4.5); BILIRUBIN,TOTAL 0.5 MG/DL (0.1-1.0); CALCIUM 8.9 MG/DL (8.5-10.1); CREATININE SERUM 1.21 MG/DL (0.60-1.30); MAGNESIUM 1.7 MG/DL (1.8-2.4); POTASSIUM 3.9 MMOL/L (3.6-5.0); TOTAL PROTEIN 5.9 GM/DL (6.4-8.2)
[2017-04-21 12:21] LABS: THYROID STIMULATING HORMONE 7.96 UIU/ML (0.35-4.94)
[2017-05-08 11:20] LABS: BASOPHILS # (AUTO) 0.1 10^3/uL (0.0-0.1); BASOPHILS % (AUTO) 2 % (0-10); EOSINOPHILS # (AUTO) 0.8 10^3/uL (0.0-0.3); EOSINOPHILS % (AUTO) 24 % (0-10); LYMPHOCYTES # (AUTO) 1.1 X 10^3 (1.0-4.0); LYMPHOCYTES % (AUTO) 34 % (12-44); MEAN CORPUSCULAR HEMOGLOBIN 32 PG (25-34); MEAN CORPUSCULAR HGB CONC 34 G/DL (32-36); MEAN CORPUSCULAR VOLUME 95 FL (80-99); MEAN PLATELET VOLUME 10.3 FL (7.4-10.4); MONOCYTES # (AUTO) 0.3 X 10^3 (0.0-1.0); MONOCYTES % (AUTO) 9 % (0-12); NEUTROPHILS % (AUTO) 31 % (42-75); PLATELET COUNT 169 10^3/uL (130-400); RED BLOOD COUNT 3.62 10^6/uL (4.35-5.85); RED CELL DISTRIBUTION WIDTH 12.4 % (10.0-14.5); WHITE BLOOD COUNT 3.3 10^3/uL (4.3-11.0)
[2017-05-08 11:41] LABS: ALANINE AMINOTRANSFERASE 12 U/L (0-55); ALBUMIN 3.4 GM/DL (3.2-4.5); ANION GAP 7 MMOL/L (5-14); ASPARTATE AMINO TRANSFERASE 22 U/L (5-34); BILIRUBIN,TOTAL 0.8 MG/DL (0.1-1.0); BLOOD UREA NITROGEN 9 MG/DL (7-18); BUN/CREATININE RATIO 8; CALCIUM 9.2 MG/DL (8.5-10.1); CARBON DIOXIDE 26 MMOL/L (21-32); CHLORIDE 104 MMOL/L (98-107); GFR ESTIMATED > 60; GLUCOSE 94 MG/DL (70-105); POTASSIUM 3.9 MMOL/L (3.6-5.0); SODIUM 137 MMOL/L (135-145); TOTAL PROTEIN 6.1 GM/DL (6.4-8.2)
[2017-05-08 12:03] LABS: THYROID STIMULATING HORMONE 2.31 UIU/ML (0.35-4.94)
[2017-05-21 11:40] LABS: BASOPHILS % (AUTO) 1 % (0-10); EOSINOPHILS # (AUTO) 0.8 10^3/uL (0.0-0.3); EOSINOPHILS % (AUTO) 15 % (0-10); LYMPHOCYTES % (AUTO) 20 % (12-44); MEAN CORPUSCULAR HEMOGLOBIN 32 PG (25-34); MEAN CORPUSCULAR HGB CONC 34 G/DL (32-36); MEAN CORPUSCULAR VOLUME 93 FL (80-99); MEAN PLATELET VOLUME 11.2 FL (7.4-10.4); MONOCYTES # (AUTO) 0.3 X 10^3 (0.0-1.0); MONOCYTES % (AUTO) 6 % (0-12); NEUTROPHILS # (AUTO) 3.1 X 10^3 (1.8-7.8); NEUTROPHILS % (AUTO) 59 % (42-75); PLATELET COUNT 195 10^3/uL (130-400); RED BLOOD COUNT 3.61 10^6/uL (4.35-5.85); RED CELL DISTRIBUTION WIDTH 12.5 % (10.0-14.5); WHITE BLOOD COUNT 5.2 10^3/uL (4.3-11.0)
[2017-05-21 12:03] LABS: CALCIUM 8.5 MG/DL (8.5-10.1); CREATININE SERUM 1.43 MG/DL (0.60-1.30); POTASSIUM 3.8 MMOL/L (3.6-5.0)
[~2017-06-05 10:20] MED LIST changes: +ACETAMINOPHEN 500 MG TAB (TYLENOL) CANCER CTR PO PRN; +FAMOTIDINE 20MG/2ML IV (CANCER CTR) IV SCH; +NIVOLUMAB 200 MG, NIVOLUMAB 40 MG in NS (IVPB) CANCER CENTER 50 ML IV SCH; +NS IV 1000 ML (CANCER CTR) 1,000 ML ONE; +NS IV 500 ML (CANCER CENTER) IV SCH; +diphenhydrAMINE 25 MG TAB (BENADRYL) CANCER CENTER PO SCH
[2017-06-05 10:43] LABS: BASOPHILS # (AUTO) 0.1 10^3/uL (0.0-0.1); BASOPHILS % (AUTO) 1 % (0-10); EOSINOPHILS # (AUTO) 0.8 10^3/uL (0.0-0.3); EOSINOPHILS % (AUTO) 20 % (0-10); LYMPHOCYTES # (AUTO) 1.2 X 10^3 (1.0-4.0); LYMPHOCYTES % (AUTO) 32 % (12-44); MEAN CORPUSCULAR HEMOGLOBIN 31 PG (25-34); MEAN CORPUSCULAR HGB CONC 34 G/DL (32-36); MEAN CORPUSCULAR VOLUME 93 FL (80-99); MEAN PLATELET VOLUME 10.7 FL (7.4-10.4); MONOCYTES # (AUTO) 0.2 X 10^3 (0.0-1.0); MONOCYTES % (AUTO) 6 % (0-12); NEUTROPHILS # (AUTO) 1.5 X 10^3 (1.8-7.8); NEUTROPHILS % (AUTO) 40 % (42-75); PLATELET COUNT 180 10^3/uL (130-400); RED BLOOD COUNT 3.85 10^6/uL (4.35-5.85); RED CELL DISTRIBUTION WIDTH 12.8 % (10.0-14.5); WHITE BLOOD COUNT 3.8 10^3/uL (4.3-11.0)
[2017-06-05 11:03] LABS: ALANINE AMINOTRANSFERASE 7 U/L (0-55); ALBUMIN 3.3 GM/DL (3.2-4.5); ANION GAP 8 MMOL/L (5-14); ASPARTATE AMINO TRANSFERASE 14 U/L (5-34); BILIRUBIN,TOTAL 0.5 MG/DL (0.1-1.0); BLOOD UREA NITROGEN 8 MG/DL (7-18); BUN/CREATININE RATIO 8; CALCIUM 8.6 MG/DL (8.5-10.1); CARBON DIOXIDE 23 MMOL/L (21-32); CHLORIDE 107 MMOL/L (98-107); CREATININE SERUM 1.02 MG/DL (0.60-1.30); GFR ESTIMATED > 60; GLUCOSE 92 MG/DL (70-105); POTASSIUM 3.6 MMOL/L (3.6-5.0); SODIUM 138 MMOL/L (135-145); TOTAL PROTEIN 5.9 GM/DL (6.4-8.2)
[2017-06-05 11:22] LABS: THYROID STIMULATING HORMONE 3.09 UIU/ML (0.35-4.94)
== END 2017-06-06 | disposition home or self-care (01) ==
LOC: ONC 10:20
PROVIDERS: ATTEND Internal Medicine Hematology & Oncology
DX: Z51.11 Encounter for antineoplastic chemotherapy (principal); J91.0 Malignant pleural effusion; Z85.46 Personal history of malignant neoplasm of prostate; K59.00 Constipation, unspecified; R91.8 Other nonspecific abnormal finding of lung field; F17.210 Nicotine dependence, cigarettes, uncomplicated; M48.06 Spinal stenosis, lumbar region; M19.90 Unspecified osteoarthritis, unspecified site; Z79.899 Other long term (current) drug therapy
CPT/HCPCS: 36415; 36591; 80048; 80053; 83735; 84443; 85025; 96360; 96413

== ENCOUNTER 2017-06-18 12:56 | Outpatient (RCR) | payer MEDICARE, OTHER ==
[~2017-06-18 12:56] MED LIST changes: -ACETAMINOPHEN 500 MG TAB (TYLENOL) CANCER CTR PO PRN; -NS IV 1000 ML (CANCER CTR) 1,000 ML ONE; -diphenhydrAMINE 25 MG TAB (BENADRYL) CANCER CENTER PO SCH
[2017-06-18 13:21] LABS: BASOPHILS # (AUTO) 0.1 10^3/uL (0.0-0.1); BASOPHILS % (AUTO) 1 % (0-10); EOSINOPHILS # (AUTO) 0.8 10^3/uL (0.0-0.3); EOSINOPHILS % (AUTO) 18 % (0-10); LYMPHOCYTES # (AUTO) 1.3 X 10^3 (1.0-4.0); LYMPHOCYTES % (AUTO) 31 % (12-44); MEAN CORPUSCULAR HEMOGLOBIN 32 PG (25-34); MEAN CORPUSCULAR HGB CONC 35 G/DL (32-36); MEAN CORPUSCULAR VOLUME 93 FL (80-99); MEAN PLATELET VOLUME 10.9 FL (7.4-10.4); MONOCYTES # (AUTO) 0.3 X 10^3 (0.0-1.0); MONOCYTES % (AUTO) 7 % (0-12); NEUTROPHILS # (AUTO) 1.8 X 10^3 (1.8-7.8); NEUTROPHILS % (AUTO) 43 % (42-75); PLATELET COUNT 164 10^3/uL (130-400); RED BLOOD COUNT 3.78 10^6/uL (4.35-5.85); RED CELL DISTRIBUTION WIDTH 12.9 % (10.0-14.5); WHITE BLOOD COUNT 4.3 10^3/uL (4.3-11.0)
[2017-06-18 13:35] LABS: ANION GAP 7 MMOL/L (5-14); BLOOD UREA NITROGEN 8 MG/DL (7-18); BUN/CREATININE RATIO 8; CARBON DIOXIDE 24 MMOL/L (21-32); CHLORIDE 106 MMOL/L (98-107); CREATININE SERUM 1.06 MG/DL (0.60-1.30); POTASSIUM 3.8 MMOL/L (3.6-5.0); SODIUM 137 MMOL/L (135-145)
[2017-06-18 13:36] LABS: CALCIUM 9.2 MG/DL (8.5-10.1); GFR ESTIMATED > 60; GLUCOSE 96 MG/DL (70-105)
[2017-07-03 14:52] LABS: BASOPHILS % (AUTO) 1 % (0-10); EOSINOPHILS # (AUTO) 0.6 10^3/uL (0.0-0.3); EOSINOPHILS % (AUTO) 17 % (0-10); LYMPHOCYTES # (AUTO) 1.3 X 10^3 (1.0-4.0); LYMPHOCYTES % (AUTO) 34 % (12-44); MEAN CORPUSCULAR HEMOGLOBIN 32 PG (25-34); MEAN CORPUSCULAR HGB CONC 35 G/DL (32-36); MEAN CORPUSCULAR VOLUME 92 FL (80-99); MEAN PLATELET VOLUME 11.5 FL (7.4-10.4); MONOCYTES # (AUTO) 0.3 X 10^3 (0.0-1.0); MONOCYTES % (AUTO) 8 % (0-12); NEUTROPHILS # (AUTO) 1.5 X 10^3 (1.8-7.8); NEUTROPHILS % (AUTO) 40 % (42-75); PLATELET COUNT 145 10^3/uL (130-400); RED BLOOD COUNT 3.89 10^6/uL (4.35-5.85); RED CELL DISTRIBUTION WIDTH 12.7 % (10.0-14.5); WHITE BLOOD COUNT 3.7 10^3/uL (4.3-11.0)
[2017-07-03 15:15] LABS: ALANINE AMINOTRANSFERASE 11 U/L (0-55); ALBUMIN 3.5 GM/DL (3.2-4.5); ANION GAP 11 MMOL/L (5-14); ASPARTATE AMINO TRANSFERASE 23 U/L (5-34); BLOOD UREA NITROGEN 10 MG/DL (7-18); BUN/CREATININE RATIO 10; CALCIUM 8.6 MG/DL (8.5-10.1); CARBON DIOXIDE 21 MMOL/L (21-32); CHLORIDE 105 MMOL/L (98-107); CREATININE SERUM 0.97 MG/DL (0.60-1.30); GFR ESTIMATED > 60; GLUCOSE 112 MG/DL (70-105); POTASSIUM 3.4 MMOL/L (3.6-5.0); SODIUM 137 MMOL/L (135-145); TOTAL PROTEIN 6.1 GM/DL (6.4-8.2)
[2017-07-03 16:09] LABS: THYROID STIMULATING HORMONE 0.16 UIU/ML (0.35-4.94)
== END 2017-07-03 14:40 | disposition home or self-care (01) ==
LOC: ONC 12:56
PROVIDERS: ATTEND Internal Medicine Hematology & Oncology
DX: Z51.11 Encounter for antineoplastic chemotherapy (principal); C34.32 Malignant neoplasm of lower lobe, left bronchus or lung; J91.0 Malignant pleural effusion; Z85.46 Personal history of malignant neoplasm of prostate; E03.9 Hypothyroidism, unspecified; K59.00 Constipation, unspecified; F17.210 Nicotine dependence, cigarettes, uncomplicated; M48.061 Spinal stenosis, lumbar region without neurogenic claudication; Z79.899 Other long term (current) drug therapy
CPT/HCPCS: 36591; 80048; 80053; 84443; 85025; 96413

== ENCOUNTER → 2017-07-09 | Outpatient (CLI) | payer MEDICARE, OTHER ==
[~2017-07-09] MED LIST changes: +BARIUM SUSPENSION 2.1% (VANILLA SILQ) 450 ML PO ONE; -FAMOTIDINE 20MG/2ML IV (CANCER CTR) IV SCH; +IOHEXOL 350 MG/ML 100 ML (OMNIPAQUE 350) VIAL IV ONE; -NIVOLUMAB 200 MG, NIVOLUMAB 40 MG in NS (IVPB) CANCER CENTER 50 ML IV SCH; +NS 100 ML (IVPB) BAG IV ONE; -NS IV 500 ML (CANCER CENTER) IV SCH
--- NOTE | 2017-07-09 15:41 | Diagnostic Imaging Report ---
PROCEDURE: CT chest with contrast, CT abdomen and pelvis with and without contrast. TECHNIQUE: Pre and post intravenous contrast axial imaging of the abdomen and pelvis and post contrast axial imaging of the chest were performed. INDICATION: Stage IV adenocarcinoma of the lung. 100 mL of Omnipaque 350 is administered intravenously. COMPARISON: 03/17/2017. FINDINGS: CT chest: There is an area of irregular consolidation seen in the superior segment of the left lower lobe, similar to 03/17/2017. There is associated pleural thickening seen in the left hemithorax. This might relate to scarring. There is no new development, mass, or suspicious nodule seen. Stable minimal scarring is also noted in the lateral aspect of the right upper lobe at the level of the hilum. No significant effusion. The heart size is normal. The thoracic aorta is normal in caliber. No mediastinal mass. There is a borderline-sized subaortic lymph node measuring 1 cm in short axis seen. This appears to be minimally larger compared to the prior exam. No hilar or axillary lymphadenopathy. The osseous structures demonstrate prominent degenerative changes and left convexity scoliosis. There are subacute rib fractures involving the anterolateral aspect of the eighth through the tenth ribs on the right side. CT abdomen and pelvis: The liver, the gallbladder, the spleen, and the adrenal glands appear unremarkable. The pancreas is largely replaced with fat density. Surgical clips deep to the left hepatic lobe are seen. The kidneys have symmetric contrast enhancement with moderate atrophy, however, of the right kidney. Simple cyst in the left kidney is again noted measuring 1.6 cm in size. No hydronephrosis. The unenhanced phase demonstrates no urinary tract stones. The prostate is at the upper limits of normal in size. No significant free fluid or fluid collection in the abdomen or pelvis is seen. The osseous structures demonstrate degenerative changes and posterior fusion hardware involving L3 through L5 levels. IMPRESSION: CT chest: Stable irregular consolidation in the superior segment of the left lower lobe, with no adverse development likely related to postoperative scarring. Continued followup recommended. CT abdomen and pelvis: No evidence of metastasis. Dictated by: Dictated on workstation # [id number]
== END ==
LOC: RAD 10:08
PROVIDERS: ATTEND Internal Medicine Hematology & Oncology
DX: C34.32 Malignant neoplasm of lower lobe, left bronchus or lung (principal)
CPT/HCPCS: 71260; 74178

== ENCOUNTER 2017-08-01 13:50 | Emergency (ER) | payer MEDICARE, OTHER ==
[~2017-08-01] VITALS: Ht 177.8 cm; Wt 72.6 kg
[~2017-08-01 13:50] MED LIST changes: +AZIT250T12 PO; -AZIT250T5 PO; -BARIUM SUSPENSION 2.1% (VANILLA SILQ) 450 ML PO ONE; -IOHEXOL 350 MG/ML 100 ML (OMNIPAQUE 350) VIAL IV ONE; -NCT14P TD; +NICO-587 TD; -NS 100 ML (IVPB) BAG IV ONE
[2017-08-01] MEDS ORDERED: NS IV 1000 ML 1,000 ML IV SCH (14:15)
[2017-08-01 15:02] LABS: BASOPHILS % (AUTO) 0 % (0-10); EOSINOPHILS # (AUTO) 0.5 10^3/uL (0.0-0.3); EOSINOPHILS % (AUTO) 9 % (0-10); LYMPHOCYTES # (AUTO) 1.2 X 10^3 (1.0-4.0); LYMPHOCYTES % (AUTO) 24 % (12-44); MEAN CORPUSCULAR HEMOGLOBIN 32 PG (25-34); MEAN CORPUSCULAR HGB CONC 34 G/DL (32-36); MEAN CORPUSCULAR VOLUME 92 FL (80-99); MEAN PLATELET VOLUME 10.6 FL (7.4-10.4); MONOCYTES # (AUTO) 0.4 X 10^3 (0.0-1.0); MONOCYTES % (AUTO) 8 % (0-12); NEUTROPHILS # (AUTO) 2.9 X 10^3 (1.8-7.8); NEUTROPHILS % (AUTO) 58 % (42-75); PLATELET COUNT 169 10^3/uL (130-400); RED BLOOD COUNT 3.43 10^6/uL (4.35-5.85); RED CELL DISTRIBUTION WIDTH 14.4 % (10.0-14.5)
[2017-08-01 15:22] LABS: ALANINE AMINOTRANSFERASE 9 U/L (0-55); ALBUMIN 3.2 GM/DL (3.2-4.5); ANION GAP 8 MMOL/L (5-14); ASPARTATE AMINO TRANSFERASE 12 U/L (5-34); BILIRUBIN,TOTAL 0.6 MG/DL (0.1-1.0); BLOOD UREA NITROGEN 9 MG/DL (7-18); BUN/CREATININE RATIO 11; CALCIUM 8.3 MG/DL (8.5-10.1); CARBON DIOXIDE 22 MMOL/L (21-32); CHLORIDE 105 MMOL/L (98-107); CREATININE SERUM 0.83 MG/DL (0.60-1.30); GFR ESTIMATED > 60; GLUCOSE 93 MG/DL (70-105); POTASSIUM 4.1 MMOL/L (3.6-5.0); SODIUM 135 MMOL/L (135-145); TOTAL PROTEIN 5.6 GM/DL (6.4-8.2)
--- NOTE | 2017-08-01 15:24 | ED GI ---
General Chief Complaint: Abdominal/GI Problems Stated Complaint: DIARRHEA Nursing Triage Note: c/o diarrhea and increasing weakness x 4 days. Hx of stage 4 lung CA with mets Sepsis Screen: No Definite Risk Source of Information: Patient, Other Exam Limitations: No Limitations History of Present Illness Time Seen By Provider: 15:23 Initial Comments Patient presents to ER by private conveyance with significant other and a chief complaint that he has had 4 days of watery diarrhea without blood or chunks in it. They have tried Imodium several times with the patient also uses oxycodone 20 mg every 4 hours and Imodium has been ineffective to do more than just slow down. He is still having watery diarrhea. Caregiver is concerned he is getting dehydrated. He is at his baseline level of pain. He has no shortness of breath abdominal pain history of abdominal surgeries or bleeding. He has no problems urinating. He is typically incontinent of bowel or bladder but now it is had diarrhea is becoming incontinent of bowel as well small amount of leakage between bowel movements. They deny skin breakdown. No altered mental status. Allergies and Home Medications Allergies Coded Allergies: No Known Drug Allergies (Unverified , 04/09/16) Home Medications Clonazepam 0.5 Mg Tablet, 0.5 MG PO Q8H PRN for ANXIETY, (Reported) Cyanocobalamin (Vitamin B-12) 1,000 Mcg Tablet, 1,000 MCG PO DAILY, (Reported) Furosemide 20 Mg Tablet, 10 MG PO DAILY PRN for SWELLING, (Reported) TAKES 1/2 OF A (20 MG) TABLET Lubiprostone 24 Mcg Capsule, 24 MCG PO DAILY, (Reported) Magnesium 250 Mg Tablet, 500 MG PO DAILY, (Reported) TAKES 2 (250 MG) TABLETS Meloxicam 15 Mg Tablet, 15 MG PO DAILY, (Reported) Metronidazole 500 Mg Tablet, 500 MG PO TID for 7 Days, #21 Prescribed by: ALLEN ARAUJO on 03/19/17 0906 Omeprazole 40 Mg Capsule.dr, 40 MG PO DAILY, (Reported) Ondansetron HCl 8 Mg Tablet, 8 MG PO Q8H PRN for NAUSEA/VOMITING-1ST LINE, ( Reported) Oxycodone HCl 20 Mg Tablet, 20-40 MG PO EVERY 4-6 HOURS PRN for PAIN-SEVERE, ( Reported) Oxycodone HCl 40 Mg Tab.er.12h, 40 MG PO BID PRN for PAIN-SEVERE, (Reported) Potassium Chloride 20 Meq Tab.er.prt, 20 MEQ PO BID, (Reported) Vitamin E Acetate 400 Unit Capsule, 400 UNIT PO DAILY, (Reported) Review of Systems Constitutional: No chills, No diaphoresis, No fever, No malaise EENTM: No Symptoms Reported Respiratory: Denies Cough Cardiovascular: Denies Chest Pain, Denies Lightheadedness Gastrointestinal: Denies Abdomen Distended, Denies Abdominal Pain, Diarrhea, Denies Nausea Genitourinary: Denies Burning, Denies Discharge Musculoskeletal: back pain (chronic), No joint pain Skin: No pruritus, No rash Past [id number]-[id number] Hx Patient Social History Alcohol Use: Denies Use Recreational Drug Use: No Smoking Status: Current Everyday Smoker Type Used: Cigarettes 2nd Hand Smoke Exposure: Yes Recent Foreign Travel: No Contact w/Someone Who Travel: No Recent Infectious Disease Expo: No Recent Hopitalizations: Yes (CHEMO -- LSST CHEMO [place] 03/11) Seasonal Allergies Seasonal Allergies: No Surgeries History of Surgeries: Yes (X 3 BACK SURGERY'S. T&A) Surgeries: Neurological, Orthopedic Respiratory History of Respiratory Disorde: Yes Respiratory Disorders: COPD Currently Using CPAP: No Currently Using BIPAP: No Cardiovascular History of Cardiac Disorders: No Neurological History of Neurological Disord: Yes (FAINTING SPELLS) Neurological Disorders: Headaches /Migraines Reproductive System Hx Reproductive Disorders: No Sexually Transmitted Disease: No HIV/AIDS: No Genitourinary History of Genitourinary Disor: No Gastrointestinal History of Gastrointestinal Di: Yes Gastrointestinal Disorders: Chronic Constipation Musculoskeletal History of Musculoskeletal Dis: Yes Musculoskeletal Disorders: Arthritis, Chronic Back Pain Endocrine History of Endocrine Disorders: No HEENT Loss of Vision: Denies Hearing Impairment: Denies Cancer History of Cancer: Yes Cancer: Lung Did You Recieve Any Treatments: Yes Type of Tx Receive: Chemotherapy Psychosocial History of Psychiatric Problem: Yes Behavioral Health Disorders: Anxiety Integumentary History of Skin or Integumenta: No Blood Transfusions History of Blood Disorders: No Adverse Reaction to a Blood Tr: No Family Medical History Significant Family History: Heart Disease Family Medial History: Dementia 19 MOTHER, Onset:60 years & older No Family History of: Not obtainable due to adoption Physical Exam Vital Signs VS - Last 72 Hours, by Label 08/01/17 14:24 Temp 99.1 Pulse 90 Resp 14 B/P (MAP) 92/68 Pulse Ox 100 O2 Delivery Room Air Capillary Refill : Less Than 3 Seconds General Appearance: no apparent distress, thin HEENT: PERRL/EOMI, pharynx normal Neck: non-tender, normal inspection Respiratory: chest non-tender, lungs clear, normal breath sounds Cardiovascular: normal peripheral pulses, regular rate, rhythm Peripheral Pulses: 2+ Radial Pulses (R), 2+ Radial Pulses (L) Gastrointestinal: normal bowel sounds, non tender, soft, no organomegaly Extremities: non-tender, normal inspection, no pedal edema, normal capillary refill Neurologic/Psychiatric: alert, oriented x 3 Skin: normal color, warm/dry Progress/Results/Core Measures Results/Orders Lab Results Laboratory Tests Test 08/01/17 14:55 Range/Units White Blood Count 5.0 4.3-11.0 10^3/uL Red Blood Count 3.43 L 4.35-5.85 10^6/uL Hemoglobin 10.8 L 13.3-17.7 G/DL Hematocrit 32 L 40-54 % Mean Corpuscular Volume 92 80-99 FL Mean Corpuscular Hemoglobin 32 25-34 PG Mean Corpuscular Hemoglobin Concent 34 32-36 G/DL Red Cell Distribution Width 14.4 10.0-14.5 % Platelet Count 169 130-400 10^3/uL Mean Platelet Volume 10.6 H 7.4-10.4 FL Neutrophils (%) (Auto) 58 42-75 % Lymphocytes (%) (Auto) 24 12-44 % Monocytes (%) (Auto) 8 0-12 % Eosinophils (%) (Auto) 9 0-10 % Basophils (%) (Auto) 0 0-10 % Neutrophils # (Auto) 2.9 1.8-7.8 X 10^3 Lymphocytes # (Auto) 1.2 1.0-4.0 X 10^3 Monocytes # (Auto) 0.4 0.0-1.0 X 10^3 Eosinophils # (Auto) 0.5 H 0.0-0.3 10^3/uL Basophils # (Auto) 0.0 0.0-0.1 10^3/uL Sodium Level 135 135-145 MMOL/L Potassium Level 4.1 3.6-5.0 MMOL/L Chloride Level 105 98-107 MMOL/L Carbon Dioxide Level 22 21-32 MMOL/L Anion Gap 8 5-14 MMOL/L Blood Urea Nitrogen 9 7-18 MG/DL Creatinine 0.83 0.60-1.30 MG/DL Estimat Glomerular Filtration Rate > 60 BUN/Creatinine Ratio 11 Glucose Level 93 70-105 MG/DL Calcium Level 8.3 L 8.5-10.1 MG/DL Total Bilirubin 0.6 0.1-1.0 MG/DL Aspartate Amino Transf (AST/SGOT) 12 5-34 U/L Alanine Aminotransferase (ALT/SGPT) 9 0-55 U/L Alkaline Phosphatase 67 40-136 U/L Total Protein 5.6 L 6.4-8.2 GM/DL Albumin 3.2 3.2-4.5 GM/DL My Orders Orders - CONOR SWANN Lucía Ns Iv 1000 Ml (Sodium Chloride 0.9%) (08/01/17 14:15) Cbc With Automated Diff (08/01/17 14:10) Comprehensive Metabolic Panel (08/01/17 14:10) Cbc With Automated Diff (08/01/17 15:21) Vital Signs/I&O Vital Sign - Last 12Hours 08/01/17 14:24 Temp 99.1 Pulse 90 Resp 14 B/P (MAP) 92/68 Pulse Ox 100 O2 Delivery Room Air Blood Pressure Mean: 76 Progress Note : Time: 16:02 Progress Note Hemoglobin is 10.8 which is 1.2 g/dL less than 5 days prior. No clinical or historical evidence of bleeding however the patient does have terminal cancer. This is within his recent range of blood hemoglobin levels. No evidence of a larger infection we'll go ahead and get him treated with some anticholinergics in addition to his opiates. Departure Impression Impression: Primary Impression: Colitis Disposition: 01 HOME, SELF-CARE Condition: Stable Departure-Patient Inst. Decision time for Depature: 16:04 Referrals: ALLEN ARAUJO MD (PCP/Family) Primary Care Physician Patient Instructions: Viral Gastroenteritis, Adult (DC) Add. Discharge Instructions: Encourage plenty fluids. Take the Lomotil 5 mg 4 times a day until you get control of his bowels. Then quickly begin to wean down by first cutting the tablet in half and then reducing how many times a day to give it all while maintaining control of his bowel movements. Usually within 2-4 days you get off of the medication. If you're on the maximum dose for more than 10 days that it is probably not going to be effective. Follow-up the primary care physician as needed. Return to the ER if you are having fever, shortness of breath, chest pain. All discharge instructions reviewed with patient and/or family. Voiced understanding. Scripts Diphenoxylate HCl/Atropine (Lomotil 2.5-0.025 mg Tablet) 1 Each Tablet 1-2 EACH PO QID Y for DIARRHEA, #45 TAB 0 Refills Prov: CONOR SWANN 08/01/17 Copy Copies To 1: ALLEN ARAUJO MD, TITUS J Aug 01, 2017 15:24
[2017-08-01] MEDS ORDERED: DIPH1TAB PO (16:07)
[2017-08-01 17:35] VITALS: BP 108/70
== END 2017-08-01 17:35 | disposition home or self-care (01) ==
LOC: EDUNIT# 13:50 → ER 13:52
DX: J44.9 Chronic obstructive pulmonary disease, unspecified (principal); C34.90 Malignant neoplasm of unspecified part of unspecified bronchus or lung; K52.9 Noninfective gastroenteritis and colitis, unspecified; G43.909 Migraine, unspecified, not intractable, without status migrainosus; F41.9 Anxiety disorder, unspecified; M19.90 Unspecified osteoarthritis, unspecified site; F17.210 Nicotine dependence, cigarettes, uncomplicated; Z87.19 Personal history of other diseases of the digestive system; Z82.49 Family history of ischemic heart disease and other diseases of the circulatory system
CPT/HCPCS: 36415; 80053; 85025

== ENCOUNTER 2017-08-03 13:10 | Outpatient (RCR) | payer MEDICARE, OTHER ==
[2017-07-09 11:16] LABS: BASOPHILS % (AUTO) 1 % (0-10); EOSINOPHILS # (AUTO) 0.6 10^3/uL (0.0-0.3); EOSINOPHILS % (AUTO) 18 % (0-10); LYMPHOCYTES # (AUTO) 1.2 X 10^3 (1.0-4.0); LYMPHOCYTES % (AUTO) 34 % (12-44); MEAN CORPUSCULAR HEMOGLOBIN 32 PG (25-34); MEAN CORPUSCULAR HGB CONC 34 G/DL (32-36); MEAN CORPUSCULAR VOLUME 92 FL (80-99); MEAN PLATELET VOLUME 11.1 FL (7.4-10.4); MONOCYTES # (AUTO) 0.2 X 10^3 (0.0-1.0); MONOCYTES % (AUTO) 5 % (0-12); NEUTROPHILS # (AUTO) 1.4 X 10^3 (1.8-7.8); NEUTROPHILS % (AUTO) 42 % (42-75); PLATELET COUNT 169 10^3/uL (130-400); RED BLOOD COUNT 3.94 10^6/uL (4.35-5.85); RED CELL DISTRIBUTION WIDTH 13.2 % (10.0-14.5); WHITE BLOOD COUNT 3.4 10^3/uL (4.3-11.0)
[2017-07-09 11:52] LABS: ANION GAP 9 MMOL/L (5-14); BLOOD UREA NITROGEN 10 MG/DL (7-18); BUN/CREATININE RATIO 9; CALCIUM 9.2 MG/DL (8.5-10.1); CARBON DIOXIDE 24 MMOL/L (21-32); CHLORIDE 103 MMOL/L (98-107); GFR ESTIMATED > 60; GLUCOSE 96 MG/DL (70-105); POTASSIUM 3.9 MMOL/L (3.6-5.0); SODIUM 136 MMOL/L (135-145)
[2017-07-16 14:13] LABS: BASOPHILS % (AUTO) 1 % (0-10); EOSINOPHILS # (AUTO) 0.6 10^3/uL (0.0-0.3); EOSINOPHILS % (AUTO) 18 % (0-10); LYMPHOCYTES # (AUTO) 1.2 X 10^3 (1.0-4.0); LYMPHOCYTES % (AUTO) 34 % (12-44); MEAN CORPUSCULAR HEMOGLOBIN 32 PG (25-34); MEAN CORPUSCULAR HGB CONC 34 G/DL (32-36); MEAN CORPUSCULAR VOLUME 92 FL (80-99); MEAN PLATELET VOLUME 11.4 FL (7.4-10.4); MONOCYTES # (AUTO) 0.3 X 10^3 (0.0-1.0); MONOCYTES % (AUTO) 8 % (0-12); NEUTROPHILS # (AUTO) 1.5 X 10^3 (1.8-7.8); NEUTROPHILS % (AUTO) 40 % (42-75); PLATELET COUNT 162 10^3/uL (130-400); RED BLOOD COUNT 3.91 10^6/uL (4.35-5.85); WHITE BLOOD COUNT 3.6 10^3/uL (4.3-11.0)
[2017-07-16 14:31] LABS: ANION GAP 9 MMOL/L (5-14); BLOOD UREA NITROGEN 10 MG/DL (7-18); BUN/CREATININE RATIO 9; CALCIUM 9.3 MG/DL (8.5-10.1); CARBON DIOXIDE 24 MMOL/L (21-32); CHLORIDE 104 MMOL/L (98-107); CREATININE SERUM 1.07 MG/DL (0.60-1.30); GFR ESTIMATED > 60; GLUCOSE 102 MG/DL (70-105); POTASSIUM 3.6 MMOL/L (3.6-5.0); SODIUM 137 MMOL/L (135-145)
[2017-07-27 14:30] LABS: BASOPHILS % (AUTO) 1 % (0-10); EOSINOPHILS # (AUTO) 0.2 10^3/uL (0.0-0.3); EOSINOPHILS % (AUTO) 6 % (0-10); LYMPHOCYTES # (AUTO) 1.1 X 10^3 (1.0-4.0); LYMPHOCYTES % (AUTO) 28 % (12-44); MEAN CORPUSCULAR HEMOGLOBIN 32 PG (25-34); MEAN CORPUSCULAR HGB CONC 35 G/DL (32-36); MEAN CORPUSCULAR VOLUME 93 FL (80-99); MONOCYTES # (AUTO) 0.3 X 10^3 (0.0-1.0); MONOCYTES % (AUTO) 6 % (0-12); NEUTROPHILS # (AUTO) 2.3 X 10^3 (1.8-7.8); NEUTROPHILS % (AUTO) 59 % (42-75); PLATELET COUNT 175 10^3/uL (130-400); RED BLOOD COUNT 3.74 10^6/uL (4.35-5.85); WHITE BLOOD COUNT 3.9 10^3/uL (4.3-11.0)
[2017-07-27 14:49] LABS: ANION GAP 7 MMOL/L (5-14); BLOOD UREA NITROGEN 9 MG/DL (7-18); BUN/CREATININE RATIO 8; CARBON DIOXIDE 22 MMOL/L (21-32); CHLORIDE 109 MMOL/L (98-107); CREATININE SERUM 1.15 MG/DL (0.60-1.30); GFR ESTIMATED > 60; GLUCOSE 116 MG/DL (70-105); POTASSIUM 4.1 MMOL/L (3.6-5.0); SODIUM 138 MMOL/L (135-145)
[~2017-08-03] VITALS: Ht 177.8 cm; Wt 72.6 kg
[~2017-08-03 13:10] MED LIST changes: +DIPH1TAB PO; +FAMOTIDINE 20MG/2ML IV (CANCER CTR) IV SCH; +NIVOLUMAB 200 MG, NIVOLUMAB 40 MG in NS (IVPB) CANCER CENTER 50 ML IV SCH; +NS IV 500 ML (CANCER CENTER) IV SCH
[2017-08-03 13:36] LABS: BASOPHILS % (AUTO) 0 % (0-10); EOSINOPHILS # (AUTO) 0.5 10^3/uL (0.0-0.3); EOSINOPHILS % (AUTO) 10 % (0-10); LYMPHOCYTES # (AUTO) 0.9 X 10^3 (1.0-4.0); LYMPHOCYTES % (AUTO) 19 % (12-44); MEAN CORPUSCULAR HEMOGLOBIN 32 PG (25-34); MEAN CORPUSCULAR HGB CONC 34 G/DL (32-36); MEAN CORPUSCULAR VOLUME 93 FL (80-99); MEAN PLATELET VOLUME 10.5 FL (7.4-10.4); MONOCYTES # (AUTO) 0.3 X 10^3 (0.0-1.0); MONOCYTES % (AUTO) 6 % (0-12); NEUTROPHILS # (AUTO) 3.1 X 10^3 (1.8-7.8); NEUTROPHILS % (AUTO) 65 % (42-75); PLATELET COUNT 181 10^3/uL (130-400); RED BLOOD COUNT 3.47 10^6/uL (4.35-5.85); RED CELL DISTRIBUTION WIDTH 14.5 % (10.0-14.5); WHITE BLOOD COUNT 4.7 10^3/uL (4.3-11.0)
[2017-08-03 13:58] LABS: ALANINE AMINOTRANSFERASE 11 U/L (0-55); ALBUMIN 3.5 GM/DL (3.2-4.5); ANION GAP 7 MMOL/L (5-14); ASPARTATE AMINO TRANSFERASE 14 U/L (5-34); BILIRUBIN,TOTAL 0.7 MG/DL (0.1-1.0); BLOOD UREA NITROGEN 8 MG/DL (7-18); BUN/CREATININE RATIO 9; CALCIUM 8.5 MG/DL (8.5-10.1); CARBON DIOXIDE 22 MMOL/L (21-32); CHLORIDE 108 MMOL/L (98-107); CREATININE SERUM 0.93 MG/DL (0.60-1.30); GFR ESTIMATED > 60; GLUCOSE 106 MG/DL (70-105); SODIUM 137 MMOL/L (135-145); TOTAL PROTEIN 6.4 GM/DL (6.4-8.2)
[2017-08-03 14:18] LABS: THYROID STIMULATING HORMONE 6.81 UIU/ML (0.35-4.94)
== END 2017-08-03 15:28 | disposition home or self-care (01) ==
LOC: ONC 13:10
PROVIDERS: ATTEND Internal Medicine Hematology & Oncology
DX: Z51.11 Encounter for antineoplastic chemotherapy (principal); C34.32 Malignant neoplasm of lower lobe, left bronchus or lung; J91.0 Malignant pleural effusion; Z85.46 Personal history of malignant neoplasm of prostate; E03.9 Hypothyroidism, unspecified; K59.00 Constipation, unspecified; F17.210 Nicotine dependence, cigarettes, uncomplicated; M48.061 Spinal stenosis, lumbar region without neurogenic claudication; Z79.899 Other long term (current) drug therapy
CPT/HCPCS: 36415; 36591; 80048; 80053; 84443; 85025; 96413

== ENCOUNTER 2017-09-24 13:52 | Outpatient (RCR) | payer MEDICARE ==
[~2017-09-24 13:52] MED LIST changes: -FAMOTIDINE 20MG/2ML IV (CANCER CTR) IV SCH; -NIVOLUMAB 200 MG, NIVOLUMAB 40 MG in NS (IVPB) CANCER CENTER 50 ML IV SCH; -NS IV 500 ML (CANCER CENTER) IV SCH
[2017-09-24 14:27] LABS: BASOPHILS % (AUTO) 0 % (0-10); EOSINOPHILS # (AUTO) 0.3 10^3/uL (0.0-0.3); EOSINOPHILS % (AUTO) 9 % (0-10); HEMATOCRIT 35 % (40-54); HEMOGLOBIN 12.5 G/DL (13.3-17.7); LYMPHOCYTES % (AUTO) 34 % (12-44); MEAN CORPUSCULAR HEMOGLOBIN 34 PG (25-34); MEAN CORPUSCULAR HGB CONC 36 G/DL (32-36); MEAN CORPUSCULAR VOLUME 94 FL (80-99); MEAN PLATELET VOLUME 10.3 FL (7.4-10.4); MONOCYTES # (AUTO) 0.2 X 10^3 (0.0-1.0); MONOCYTES % (AUTO) 7 % (0-12); NEUTROPHILS # (AUTO) 1.4 X 10^3 (1.8-7.8); NEUTROPHILS % (AUTO) 50 % (42-75); PLATELET COUNT 182 10^3/uL (130-400); RED BLOOD COUNT 3.73 10^6/uL (4.35-5.85); RED CELL DISTRIBUTION WIDTH 13.7 % (10.0-14.5); WHITE BLOOD COUNT 2.9 10^3/uL (4.3-11.0)
[2017-09-24 14:53] LABS: ALANINE AMINOTRANSFERASE 14 U/L (0-55); ALBUMIN 3.5 GM/DL (3.2-4.5); ALKALINE PHOSPHATASE 72 U/L (40-136); BILIRUBIN,TOTAL 0.9 MG/DL (0.1-1.0); BUN/CREATININE RATIO 14; CARBON DIOXIDE 20 MMOL/L (21-32); CHLORIDE 106 MMOL/L (98-107); CREATININE SERUM 0.84 MG/DL (0.60-1.30); GFR ESTIMATED > 60; GLUCOSE 102 MG/DL (70-105); POTASSIUM 3.5 MMOL/L (3.6-5.0); SODIUM 136 MMOL/L (135-145); TOTAL PROTEIN 6.2 GM/DL (6.4-8.2)
== END 2017-11-01 | disposition home or self-care (01) ==
LOC: ONC 13:52
PROVIDERS: ATTEND Internal Medicine Hematology & Oncology
DX: C34.32 Malignant neoplasm of lower lobe, left bronchus or lung (principal); Z85.46 Personal history of malignant neoplasm of prostate; E03.9 Hypothyroidism, unspecified; F17.210 Nicotine dependence, cigarettes, uncomplicated; Z79.899 Other long term (current) drug therapy
CPT/HCPCS: 36591; 80053; 85025